=== PATIENT | male | born 1985 | race Caucasian/White ===

== ENCOUNTER 2017-05-27 20:02 | Inpatient (IN) | payer OTHER ==
[~2017-05-27] VITALS: Ht 180.3 cm; Wt 61.9 kg
[2017-05-27 20:13] VITALS: BP 120/66; PULSE 116; RESP 20; TEMP 98.2; O2SAT 98
[2017-05-27 20:42] VITALS: BP 119/69; PULSE 94; RESP 17; O2SAT 99
[2017-05-27] MEDS ORDERED: SODIUM CHLOR 0.9% 1000 ML INJ 1,000 ML IV SCH ×2 (20:45→22:30)
[2017-05-27 21:01] LABS: AUTOMATED NEUTROPHIL # 7.2 TH/MM3 (1.8-7.7); BASOPHIL % 0.4 % (0.0-2.0); EOSINOPHIL % 0.4 % (0.0-4.0); HEMATOCRIT 42.5 % (39.0-51.0); LYMPH % 9.5 % (9.0-44.0); LYMPHOCYTE # 0.9 TH/MM3 (1.0-4.8); MEAN CELL VOLUME 91.5 FL (80.0-100.0); MEAN CORPUSCULAR HEMOGLOBIN 30.6 PG (27.0-34.0); MEAN CORPUSCULAR HGB CONC 33.4 % (32.0-36.0); MONO % 11.2 % (0.0-8.0); NEUT % 78.5 % (16.0-70.0); PLATELET COUNT 331 TH/MM3 (150-450); RED BLOOD COUNT 4.64 MIL/MM3 (4.50-5.90); RED CELL DISTRIBUTION WIDTH 11.7 % (11.6-17.2); WHITE BLOOD COUNT 9.1 TH/MM3 (4.0-11.0)
[2017-05-27] MEDS ORDERED: LEVO500T8 PO (21:02)
[2017-05-27] MEDS ORDERED: MAPA500C PO (21:02)
[2017-05-27] MEDS ORDERED: METR500T10 PO (21:02)
[2017-05-27 21:11] LABS: POTASSIUM 3.1 MEQ/L (3.5-5.1)
[2017-05-27 21:17] LABS: HEMO FLAGS AUTO DIFF
[2017-05-27 21:46] LABS: BLOOD, URINE TRACE (NEG); GLUCOSE,URINE NEG (NEG); KETONE, URINE TRACE mg/dL (NEG); NITRITE,URINE NEG (NEG); PH, URINE 6.5 (5.0-8.5)
[2017-05-27 21:47] LABS: BICARBONATE 31.4 MEQ/L (21.0-32.0); TOTAL BILIRUBIN ADULT 0.8 MG/DL (0.2-1.0)
[2017-05-27 21:50] VITALS: BP 117/66; PULSE 100; RESP 18; TEMP 100.6; O2SAT 99
[2017-05-27 21:53] LABS: CALCIUM-PROTEIN CORRECTED 7.4 MG/DL (8.5-10.1)
[2017-05-27 21:58] LABS: MUCUS URINE MOD /lpf (OCC); URINE COLOR YELLOW (YELLW/STRAW)
[2017-05-27 21:59] LABS: COMMENT (UR) CULTURE INDICATED; CULTURE IF INDICATED CULTURE INDICATED; RBC, URINE 0-3 /hpf (0-3); SQUAMOUS EPITHELIAL CELL URINE 0-5 /hpf (0-5); WBC, URINE 15-19 /hpf (0-5)
[2017-05-27 22:05] VITALS: BP 118/68; PULSE 105; RESP 18; O2SAT 100
[2017-05-27 22:11] LABS: BANDS 26 % (0-6); EOSINOPHILS 1 % (0-4); METAMYELOCYTES 7 % (0-1); NEUTROPHIL # MANUAL DIFF 6.6 TH/MM3 (1.8-7.7); POLYS (SEG NEUTROPHILS) 39 % (16-70); WBC DIFF SAMPLE 100
[2017-05-27 22:12] LABS: PLATELET ESTIMATE SMEAR NORMAL (NORMAL); PLATELET MORPHOLOGY NORMAL (NORMAL); SCAN/DIFF FINAL DIFF MANUAL
[2017-05-27] MEDS ORDERED: CALCIUM GLUCONATE INJ 2 GM in DEXTROSE 5% IN WATER 100ML INJ 100 ML IV ONE ×2 (22:15)
[2017-05-27] MEDS ORDERED: DIATRIZOATE MEGLUM/DIATRIZOATE SOD 9 ML CUP ONE (22:17)
[2017-05-27] MEDS ORDERED: cefTRIAXone INJ 2,000 MG in SODIUM CHLORIDE 0.9% INJ 100 ML IV ONE (22:30)
--- NOTE | 2017-05-27 22:32 | PD ---
HPI Chief Complaint: Complaint Time Seen by Provider: 20:42 Travel History International Travel<30 days: No Contact w/Intl Traveler<30days: No Traveled to known affect area: No History of Present Illness HPI This is a 31-year-old man who presents to the emergency department complaining of difficulty urinating. He states that about 2 or 3 weeks ago he started to develop bloody diarrhea and abdominal pain. He then started to develop subjective fevers and chills. He was on his honeymoon in [place]. She went to an emergency department on May [address] where he [address] a CT scan that showed colitis, and had stool cultures performed which ultimately showed your Abeley neuro: A cup. They placed him on Cipro and Flagyl. Over the next couple days he developed a blurry vision and double vision, as well as urinary difficulties. He also developed some dark urine. He called the hospital back in a seated this may be a side effect of the Flagyl and they had him stop the Flagyl. He continued to feel ill, had a fever last night of 104.2, still has bloody diarrhea, and is having progressive urinary difficulties. He now feels like he has to urinate but is unable to urinate at all. Of note, he just recently started, cosentyx, an injectable DMARD for psoriasis. He completed his every week loading doses, and is now taking it every once every 4 weeks. History Past Medical History Narrative Medical Psoriasis, on Cosentyx. Tetanus Vaccination: Unknown Influenza Vaccination: No Past Surgical History Surgical History: No Previous Surgery Social History Alcohol Use: Yes (rarely) Tobacco Use: No Allergies-Medications (Allergen,Severity, Reaction): Coded Allergies: Sulfa (Verified Allergy, Unknown, 05/27/17) Reported Meds & Prescriptions Reported Meds & Active Scripts Active Reported Mapap (Acetaminophen) 500 Mg Cap 500 Mg PO Q4-6H PRN Levofloxacin 500 Mg Tablet 500 Mg PO DAILY Metronidazole 500 Mg Tab 500 Mg PO TID Review of Systems Except as stated in HPI: all other systems reviewed are Neg Physical Exam Narrative GENERAL: 31-year-old man, looks a little bit unwell, skinny. SKIN: Focused skin assessment warm/dry. NECK: Trachea midline. No JVD. CARDIOVASCULAR: Regular rate and rhythm. No murmur appreciated. RESPIRATORY: No accessory muscle use. Clear to auscultation. Breath sounds equal bilaterally. GASTROINTESTINAL: Abdomen is flat and soft. Minimal lower abdominal tenderness. MUSCULOSKELETAL: No obvious deformities. No edema. NEUROLOGICAL: Awake and alert. No obvious cranial nerve deficits. Motor grossly within normal limits. Normal speech. PSYCHIATRIC: Appropriate mood and affect; insight and judgment normal. Data Data Last Documented VS Vital Signs Date Time Temp Pulse Resp B/P Pulse Ox O2 Delivery O2 Flow Rate FiO2 05/27/17 21:50 100 18 117/66 99 Room Air 05/27/17 20:13 98.2 Orders Complete Blood Count With Diff (05/27/17 20:42) Comprehensive Metabolic Panel (05/27/17 20:42) Lactic Acid (05/27/17 20:42) Iv Access Insert/Monitor (05/27/17 20:42) Urinalysis - C+S If Indicated (05/27/17 20:42) Sodium Chlor 0.9% 1000 Ml Inj (Ns 1000 M (05/27/17 20:45) Ed Poc Ultrasound (05/27/17 ) Urinary Catheter Insert/Apply (05/27/17 21:18) Ct Abd/Pel W Iv Contrast(Rout) (05/27/17 ) Urine Culture (05/27/17 21:30) Electrocardiogram (05/27/17 ) Calcium Gluconate Inj (Calcium Gluconate (05/27/17 22:15) Oral Contrast - Adult (05/27/17 22:02) Diatrizoate Liq ( Gastroview Liq) (05/27/17 22:17) Blood Culture (05/27/17 22:23) Sodium Chlor 0.9% 1000 Ml Inj (Ns 1000 M (05/27/17 22:30) Ceftriaxone Inj (Rocephin Inj) (05/27/17 22:30) Enteric Path (Stool) (05/27/17 22:41) C Diff Toxin Pcr (05/27/17 22:41) Chest, Single Ap (05/27/17 ) Iohexol 350 Inj (Omnipaque 350 Inj) (05/27/17 23:31) Labs Laboratory Tests Test 05/27/17 05/27/17 20:54 21:30 White Blood Count 9.1 TH/MM3 Red Blood Count 4.64 MIL/MM3 Hemoglobin 14.2 GM/DL Hematocrit 42.5 % Mean Corpuscular Volume 91.5 FL Mean Corpuscular Hemoglobin 30.6 PG Mean Corpuscular Hemoglobin 33.4 % Concent Red Cell Distribution Width 11.7 % Platelet Count 331 TH/MM3 Mean Platelet Volume 7.9 FL Neutrophils (%) (Auto) 78.5 % Lymphocytes (%) (Auto) 9.5 % Monocytes (%) (Auto) 11.2 % Eosinophils (%) (Auto) 0.4 % Basophils (%) (Auto) 0.4 % Neutrophils # (Auto) 7.2 TH/MM3 Lymphocytes # (Auto) 0.9 TH/MM3 Monocytes # (Auto) 1.0 TH/MM3 Eosinophils # (Auto) 0.0 TH/MM3 Basophils # (Auto) 0.0 TH/MM3 CBC Comment AUTO DIFF Differential Total Cells 100 Counted Neutrophils % (Manual) 39 % Band Neutrophils % 26 % Lymphocytes % 18 % Monocytes % 9 % Eosinophils % 1 % Neutrophils # (Manual) 6.6 TH/MM3 Metamyelocytes 7 % Differential Comment FINAL DIFF MANUAL Atypical Lymphocytes % Platelet Estimate NORMAL Platelet Morphology Comment NORMAL Sodium Level 131 MEQ/L Potassium Level 3.1 MEQ/L Chloride Level 93 MEQ/L Carbon Dioxide Level 31.4 MEQ/L Anion Gap 7 MEQ/L Blood Urea Nitrogen 8 MG/DL Creatinine 0.90 MG/DL Estimat Glomerular Filtration 99 ML/MIN Rate Random Glucose 115 MG/DL Lactic Acid Level 1.5 mmol/L Calcium Level 7.3 MG/DL Protein Corrected Calcium 7.4 MG/DL Total Bilirubin 0.8 MG/DL Aspartate Amino Transf 11 U/L (AST/SGOT) Alanine Aminotransferase 12 U/L (ALT/SGPT) Alkaline Phosphatase 57 U/L Total Protein 7.0 GM/DL Albumin 2.4 GM/DL Urine Color YELLOW Urine Turbidity CLOUDY Urine pH 6.5 Urine Specific [place] 1.021 Urine Protein 30 mg/dL Urine Glucose (UA) NEG mg/dL Urine Ketones TRACE mg/dL Urine Occult Blood TRACE Urine Nitrite NEG Urine Bilirubin NEG Urine Leukocyte Esterase NEG Urine RBC 0-3 /hpf Urine WBC 15-19 /hpf Urine WBC Clumps FEW Urine Squamous Epithelial 0-5 /hpf Cells Urine Mucus MOD /lpf Microscopic Urinalysis Comment CULTURE INDICATED MDM Medical Decision Making Medical Screen Exam Complete: Yes Emergency Medical Condition: Yes Interpretation(s) CT abdomen and pelvis: Diffuse mild colonic wall thickening and diffuse mild colonic distention. Mild small bowel distention. LABS: CBC remarkable for white count 9.1 thousand, 26% bands. CMP with mildly low potassium, critically low calcium, glucose 1:15 UA with a little bit of pyuria My review chest x-ray: No acute cardiopulmonary disease. Differential Diagnosis Colitis, sepsis, abscess, other Narrative Course Medical decision making This is a 31-year-old man who presents to the emergency department with ongoing symptoms of a yersenia enterocolitica colitis, status post initial use of edema are, now with fever, abdominal pain, urinary difficulties, concerning for abscess or septicemia. He looks a little bit unwell. He is tachycardic. He states he had a fever of 104.2 despite 5 days of antibiotics now. We'll check cultures, labs, consider CT for abscess, IV fluids, reassess. FINAL: Patient was sepsis, elevated fever, tachycardia, all bandemia, we'll plan on admission to the hospital, blood cultures pending, IV ceftriaxone for likely yersenia septicemia. Diagnosis Primary Impression: Sepsis Additional Impression: Colitis Admitting Information Admitting Physician Requests: Admit Derick Garcia MD May 27, 2017 22:32
[2017-05-27] MEDS ORDERED: IOHEXOL 350 MG/ML 10 ML VIAL (for RAD DIAG) IV ONE (23:31)
--- NOTE | 2017-05-27 23:43 | RADRPT ---
EXAM DATE/TIME: 05/27/2017 22:55 [facility] COMPARISON: No previous studies available for comparison. INDICATIONS : Difficulty urinating, weakness, fever. Abdominal pain and bloating. IV CONTRAST: 97 cc Omnipaque 350 (iohexol) IV ORAL CONTRAST: Prescribed oral contrast ingested. RADIATION DOSE: 4.46 CTDIvol (mGy) MEDICAL HISTORY : None Skaggs catheter in place SURGICAL HISTORY : None. ENCOUNTER: Initial ACUITY: 1 week PAIN SCALE: 5/10 LOCATION: anterior abdomen TECHNIQUE: Volumetric scanning of the abdomen and pelvis was performed. Using automated exposure control and ad justment of the mA and/or kV according to patient size, radiation dose was kept as low as reasonably achievable to obtain optimal diagnostic quality images. DICOM format image data is available electro nically for review and comparison. FINDINGS: LOWER LUNGS: The visualized lower lungs are clear. LIVER: Homogeneous density without lesion. There is no dilation of the biliary tree. No calcified gallston es. SPLEEN: Normal size without lesion. PANCREAS: Within normal limits. KIDNEYS: Normal in size and shape. There is no mass, stone or hydronephrosis. ADRENAL GLANDS: Within normal limits. VASCULAR: There is no aortic aneurysm. BOWEL/MESENTERY: There is mild gaseous distention of the colon and mild fairly diffuse colonic wall thickening with fl uid levels present. There is mild gaseous distention of small bowel. ABDOMINAL WALL: Within normal limits. RETROPERITONEUM: There is no lymphadenopathy. BLADDER: Decompressed with Skaggs catheter present. REPRODUCTIVE: Within normal limits. INGUINAL: There is no lymphadenopathy or hernia. MUSCULOSKELETAL: Within normal limits for patient age. CONCLUSION: Diffuse mild colonic wall thickening and diffuse mild colonic distention. Mild small bowel distention . Luis Manuel Hoyos MD on May 27, 2017 at 23:36 Board Certified Radiologist. This report was verified electronically.
--- NOTE | 2017-05-27 23:44 | RADRPT ---
EXAM DATE/TIME: 05/27/2017 22:59 [facility] COMPARISON: No previous studies available for comparison. INDICATIONS : Fever. Weakness. MEDICAL HISTORY : None. SURGICAL HISTORY : None. ENCOUNTER: Initial ACUITY: 3 days PAIN SCORE: 5/10 LOCATION: Bilateral chest FINDINGS: A single view of the chest demonstrates the lungs to be symmetrically aerated without evidence of mas s, infiltrate or effusion. The cardiomediastinal contours are unremarkable. Osseous structures are intact. CONCLUSION: No acute disease. Luis Manuel Hoyos MD on May 27, 2017 at 23:42 Board Certified Radiologist. This report was verified electronically.
[2017-05-28] VITALS (12 sets, daily range): BP systolic 102–123; BP diastolic 62–69; PULSE 80–106; RESP 16–20; TEMP 96.3–103.1; O2SAT 10–100
[2017-05-28] MEDS ORDERED: MAGNESIUM HYDROXIDE SUSP 30 ML CUP PO PRN
[2017-05-28] MEDS ORDERED: LACTULOSE SYRUP 20 GM/30 ML CUP PO PRN
[2017-05-28] MEDS ORDERED: ACETAMINOPHEN/HYDROcodone 325 MG/5 MG TAB PO PRN
[2017-05-28] MEDS ORDERED: BISACODYL 10 MG SUPP RECTAL PRN
[2017-05-28] MEDS ORDERED: ONDANSETRON HCL 4 MG/2 ML VIAL IVP PRN
[2017-05-28] MEDS ORDERED: MORPHINE SULFATE 4 MG/ML INJ IV PRN
[2017-05-28] MEDS ORDERED: SENNOSIDES 8.6 MG TAB PO PRN
[2017-05-28] MEDS ORDERED: SODIUM CHLOR 0.9% 1000 ML INJ 1,000 ML IV SCH
[2017-05-28] MEDS ORDERED: SODIUM CHLORIDE 0.9% FLUSH 10 ML FLUSH IV FLUSH PRN
[2017-05-28] MEDS: metroNIDAZOLE 500 MG INJ 100 ML IV SCH ×4 (01:03→23:27)
[2017-05-28] MEDS: ACETAMINOPHEN 325 MG TAB PO PRN ×2 (01:20→23:43)
[2017-05-28 03:24] LABS: C. DIFF EPI 027 PRESUMPTIVE NEGATIVE (NEGATIVE); C. DIFF TOXIN PCR NEGATIVE (NEGATIVE)
[2017-05-28 06:59] LABS: AUTOMATED NEUTROPHIL # 6.9 TH/MM3 (1.8-7.7); BASOPHIL % 0.1 % (0.0-2.0); EOSINOPHIL % 0.2 % (0.0-4.0); HEMATOCRIT 36.4 % (39.0-51.0); LYMPHOCYTE # 0.8 TH/MM3 (1.0-4.8); MEAN CELL VOLUME 91.8 FL (80.0-100.0); MEAN CORPUSCULAR HEMOGLOBIN 31.2 PG (27.0-34.0); MONO % 14.1 % (0.0-8.0); NEUT % 76.6 % (16.0-70.0); PLATELET COUNT 271 TH/MM3 (150-450); RED BLOOD COUNT 3.97 MIL/MM3 (4.50-5.90); RED CELL DISTRIBUTION WIDTH 11.6 % (11.6-17.2)
[2017-05-28 07:07] LABS: HEMO FLAGS AUTO DIFF
[2017-05-28 07:10] LABS: POTASSIUM 3.4 MEQ/L (3.5-5.1)
[2017-05-28 07:23] LABS: BICARBONATE 28.7 MEQ/L (21.0-32.0); TOTAL BILIRUBIN ADULT 0.7 MG/DL (0.2-1.0)
[2017-05-28 07:49] LABS: BANDS 49 % (0-6); EOSINOPHILS 1 % (0-4); METAMYELOCYTES 2 % (0-1); NEUTROPHIL # MANUAL DIFF 7.2 TH/MM3 (1.8-7.7); POLYS (SEG NEUTROPHILS) 29 % (16-70); WBC DIFF SAMPLE 100
[2017-05-28 07:50] LABS: DOHLE BODIES PRESENT (NONE SEEN); PLATELET ESTIMATE SMEAR NORMAL (NORMAL); PLATELET MORPHOLOGY NORMAL (NORMAL); SCAN/DIFF FINAL DIFF MANUAL
[2017-05-28] MEDS: SODIUM CHLORIDE 0.9% FLUSH 10 ML FLUSH IV FLUSH SCH ×2 (07:57→21:00)
[2017-05-28] MEDS: cefTRIAXone INJ 1,000 MG in SODIUM CHLORIDE 0.9% INJ 100 ML IV SCH ×2 (08:11→21:37)
--- NOTE | 2017-05-28 08:42 | HHI.HP ---
[facility] Service [place] [facility] Primary Care Physician No Primary Care Physician Admission Diagnosis sepsis, enterocolitis Diagnoses: (1) Colitis Diagnosis: Principal Chief Complaint: bloody diarrhea Travel History International Travel<30 Days: No Contact w/Intl Traveler <30 Da: No Traveled to Known Affected Are: No Sepsis Criteria SIRS Criteria (2 or more): Temp > 100.9 or < 96.8, Heart rate over 90 Sepsis Criteria (SIRS+source): Infect source susp/known Criteria Outcome: Meets sepsis criteria History of Present Illness patient is a 31 y/o male with history of psoriasis who presented to ER with bloody diarrhea. he says that it started three weeks ago. he says that he went to the doctor and he was prescribed levaquin and flagyl. he says that after taking flagyl he stared to have urinary retention for which he stopped taking it. he says that his bowel movement is ' just some mucous and blood'. he reports on and off fever and night sweats at home. he's lost about three pounds within the past three weeks and reports loss of appetite. he says that he has mild abominal pain more or less localized to the LLQ. Review of Systems Constitutional: COMPLAINS OF: Fever, Weight loss, Night Sweats, DENIES: Chills Eyes: DENIES: Blurred vision, Diplopia, Vision loss, Double Vision Ears, nose, mouth, throat: DENIES: Tinnitus, Vertigo, Throat pain, Epistaxis Respiratory: DENIES: Apneas, Cough, Snoring, Wheezing, Hemoptysis, Sputum production, Shortness of breath Cardiovascular: DENIES: Chest pain, Palpitations, Syncope, Dyspnea on Exertion , PND, Lower Extremity Edema, Orthopnea, Claudication Gastrointestinal: COMPLAINS OF: Abdominal pain, Bloody stools, Anorexia, DENIES: Black stools, Constipation, Diarrhea, Nausea, Vomiting, Difficulty Swallowing Genitourinary: DENIES: Urinary frequency, Urgency, Hematuria, Dysuria Musculoskeletal: DENIES: Joint pain, Muscle aches, Stiffness, Joint Swelling Integumentary: DENIES: Rash Neurologic: DENIES: Abnormal gait, Headache, Localized weakness, Paresthesias, Seizures, Speech Problems, Tremor, Poor Balance Psychiatric: DENIES: Anxiety, Confusion, Mood changes, Depression, Hallucinations, Agitation, Suicidal Ideation, Homicidal Ideation, Delusions urinary retention. Past Family Social History Past Medical History psoriasis/ psoriatic arthritis Past Surgical History lipoma removal Reported Medications levaquin/ Flagyl Allergies: Coded Allergies: Sulfa (Verified Allergy, Unknown, 05/27/17) Active Ordered Medications Current Medications Sodium Chloride 1,000 ml @ 999 mls/hr Q1H1M IV Last administered on 05/27/17 21:55; Start 05/27/17 at 20:45; Stop 05/27/17 at 21:45; Status DC Calcium Gluconate/ Dextrose (Calcium Gluconate Inj/D5W 100 ml Inj) 120 ml @ 120 mls/hr ONCE ONCE IV Last administered on 05/27/17 23:51; Start 05/27/17 at 22:15; Stop 05/27/17 at 23:14; Status DC Diatrizoate Meglum/ Diatrizoate Sod 9 ml 9 ml STK-MED ONCE .ROUTE Last administered on 05/27/17 22:19; Start 05/27/17 at 22:17; Stop 05/27/17 at 22:18 ; Status DC Sodium Chloride 1,000 ml @ 999 mls/hr Q1H1M IV Last administered on 05/27/17 22:57; Start 05/27/17 at 22:30; Stop 05/27/17 at 23:30; Status DC Ceftriaxone Sodium/Sodium Chloride (Rocephin Inj/NS Inj) 100 ml @ 200 mls/hr ONCE ONCE IV Last administered on 05/27/17 22:53; Start 05/27/17 at 22:30; Stop 05/27/17 at 22:59; Status DC Iohexol 97 ml 97 ml STK-MED ONCE IV Last administered on 05/27/17 23:31; Start 05/27/17 at 23:31; Stop 05/27/17 at 23:32; Status DC Ceftriaxone Sodium 1000 mg/ Sodium Chloride 100 ml @ 200 mls/hr Q12H IV Last administered on 05/28/17 08:11; Start 05/28/17 at 09:00 Metronidazole 100 ml @ 100 mls/hr Q8H IV Last administered on 05/28/17 08:07 ; Start 05/28/17 at 00:00 Sodium Chloride (NS 1000 ml Inj) 1,000 ml @ 100 mls/hr Q10H IV Last administered on 05/28/17 01:03; Start 05/28/17 at 00:00; Stop 05/28/17 at 08:12 ; Status DC Sodium Chloride (NS Flush) 2 ml UNSCH PRN IV FLUSH FLUSH AFTER USING IV ACCESS ; Start 05/28/17 at 00:00 Sodium Chloride (NS Flush) 2 ml BID IV FLUSH ; Start 05/28/17 at 09:00 Ondansetron HCl (Zofran Inj) 4 mg Q6H PRN IVP NAUSEA OR VOMITING; Start at 00:00 Acetaminophen (Tylenol) 650 mg Q6H PRN PO FEVER/PAIN SCALE 1 TO 2 Last administered on 05/28/17 01:20; Start 05/28/17 at 00:00 Acetaminophen/ Hydrocodone Bitart (Becker 5-325 Mg) 1 tab Q4H PRN PO PAIN SCALE 3 TO 5; Start 05/28/17 at 00:00 Morphine Sulfate (Morphine Inj) 2 mg Q3H PRN IV Pain 6-10; Start 05/28/17 at 00 :00 Senna/Docusate Sodium (Vijaya-Colace) 1 tab BID PO ; Start 05/28/17 at 09:00; Status Future Hold Magnesium Hydroxide (Milk Of Magnesia Liq) 30 ml Q12H PRN PO MILD - MODERATE CONSTIPATION; Start 05/28/17 at 00:00 Sennosides (Senokot) 17.2 mg Q12H PRN PO MODERATE - SEVERE CONSTIPATION; Start 05/28/17 at 00:00 Bisacodyl (Dulcolax Supp) 10 mg DAILY PRN RECTAL SEVERE CONSITIPATION; Start at 00:00 Lactulose 30 ml 30 ml DAILY PRN PO SEVERE CONSITIPATION; Start 05/28/17 at 00: 00 Potassium Chloride/Sodium Chloride (NS + KCl 20 Meq Inj) 1,000 ml @ 100 mls/hr Q10H IV ; Start 05/28/17 at 08:30 Family History not relevant to this admission. Social History doesn't smoke.drinks rarely. Physical Exam Vital Signs Vital Signs Date Time Temp Pulse Resp B/P Pulse Ox O2 Delivery O2 Flow Rate FiO2 05/28/17 06:01 99.3 91 20 111/68 98 05/28/17 05:04 98.3 96 18 108/63 99 Room Air 05/28/17 02:25 99.5 05/28/17 01:14 103.1 105 16 123/69 99 Room Air 05/28/17 00:30 100.2 105 17 119/62 98 Room Air 05/28/17 00:06 106 17 119/69 100 Room Air 05/27/17 22:05 105 18 118/68 100 Room Air 05/27/17 21:50 100.6 100 18 117/66 99 Room Air 05/27/17 20:42 94 17 119/69 99 Room Air 05/27/17 20:13 98.2 116 20 120/66 98 Physical Exam GENERAL: This is a well-nourished, well-developed patient, in no apparent distress. SKIN: No rashes, ecchymoses or lesions. Cool and dry. HEAD: Atraumatic. Normocephalic. No temporal or scalp tenderness. EYES: Pupils equal round and reactive. Extraocular motions intact. No scleral icterus. No injection or drainage. ENT: Nose without bleeding, purulent drainage or septal hematoma. Throat without erythema, tonsillar hypertrophy or exudate. Uvula midline. Airway patent. NECK: Trachea midline. No JVD or lymphadenopathy. Supple, nontender, no meningeal signs. CARDIOVASCULAR: Regular rate and rhythm without murmurs, gallops, or rubs. RESPIRATORY: Clear to auscultation. Breath sounds equal bilaterally. No wheezes , rales, or rhonchi. GASTROINTESTINAL: Abdomen soft, minimal LLQ tenderness, nondistended. No hepato- splenomegaly, or palpable masses. No guarding. MUSCULOSKELETAL: Extremities without clubbing, cyanosis, or edema. No joint tenderness, effusion, or edema noted. No calf tenderness. Negative Homans sign bilaterally. NEUROLOGICAL: Awake and alert. Cranial nerves II through XII intact. Motor and sensory grossly within normal limits. Five out of 5 muscle strength in all muscle groups. Normal speech. Laboratory Laboratory Tests Test 05/27/17 05/27/17 05/27/17 05/28/17 20:54 21:30 23:40 06:45 White Blood Count 9.1 9.0 Red Blood Count 4.64 3.97 Hemoglobin 14.2 12.4 Hematocrit 42.5 36.4 Mean Corpuscular Volume 91.5 91.8 Mean Corpuscular Hemoglobin 30.6 31.2 Mean Corpuscular Hemoglobin 33.4 34.0 Concent Red Cell Distribution Width 11.7 11.6 Platelet Count 331 271 Mean Platelet Volume 7.9 7.8 Neutrophils (%) (Auto) 78.5 76.6 Lymphocytes (%) (Auto) 9.5 9.0 Monocytes (%) (Auto) 11.2 14.1 Eosinophils (%) (Auto) 0.4 0.2 Basophils (%) (Auto) 0.4 0.1 Neutrophils # (Auto) 7.2 6.9 Lymphocytes # (Auto) 0.9 0.8 Monocytes # (Auto) 1.0 1.3 Eosinophils # (Auto) 0.0 0.0 Basophils # (Auto) 0.0 0.0 CBC Comment AUTO DIFF AUTO DIFF Differential Total Cells 100 100 Counted Neutrophils % (Manual) 39 29 Band Neutrophils % 26 49 Lymphocytes % 18 8 Monocytes % 9 11 Eosinophils % 1 1 Neutrophils # (Manual) 6.6 7.2 Metamyelocytes 7 2 Differential Comment FINAL DIFF FINAL DIFF MANUAL MANUAL Atypical Lymphocytes Platelet Estimate NORMAL NORMAL Platelet Morphology Comment NORMAL NORMAL Sodium Level 131 136 Potassium Level 3.1 3.4 Chloride Level 93 98 Carbon Dioxide Level 31.4 28.7 Anion Gap 7 9 Blood Urea Nitrogen 8 6 Creatinine 0.90 0.79 Estimat Glomerular Filtration 99 115 Rate Random Glucose 115 106 Lactic Acid Level 1.5 Calcium Level 7.3 7.3 Protein Corrected Calcium 7.4 8.0 Total Bilirubin 0.8 0.7 Aspartate Amino Transf 11 9 (AST/SGOT) Alanine Aminotransferase 12 10 (ALT/SGPT) Alkaline Phosphatase 57 46 Total Protein 7.0 5.8 Albumin 2.4 1.8 Urine Color YELLOW Urine Turbidity CLOUDY Urine pH 6.5 Urine Specific [place] 1.021 Urine Protein 30 Urine Glucose (UA) NEG Urine Ketones TRACE Urine Occult Blood TRACE Urine Nitrite NEG Urine Bilirubin NEG Urine Leukocyte Esterase NEG Urine RBC 0-3 Urine WBC 15-19 Urine WBC Clumps FEW Urine Squamous Epithelial 0-5 Cells Urine Mucus MOD Microscopic Urinalysis Comment CULTURE INDICATED Stool C. difficile Toxin (PCR) NEGATIVE Stl C. difficile Toxin PRESUMPTIVE Epiderm 027 NEGATIVE Dohle Bodies PRESENT Red Cell Morphology Comment NORMAL Date/Time Procedure Status Source Growth 05/27/17 23:40 Received Stool Stool Pending 05/27/17 22:32 Aerobic Blood Culture Received Blood Peripheral Pending 05/27/17 22:32 Anaerobic Blood Culture Received Blood Peripheral Pending 05/27/17 21:30 Urine Culture Received Urine Clean Catch Pending Result Diagram: 05/28/17 0645 05/28/17 0645 Imaging Last Impressions Chest X-Ray 05/27/17 0000 Signed Impressions: Service Date/Time: Saturday, May 27, 2017 22:59 - CONCLUSION: No acute disease. Luis Manuel Hoyos MD Abdomen/Pelvis CT 05/27/17 0000 Signed Impressions: Service Date/Time: Saturday, May 27, 2017 22:55 - CONCLUSION: Diffuse mild colonic wall thickening and diffuse mild colonic distention. Mild small bowel distention. Luis Manuel Hoyos MD Assessment and Plan Assessment and Plan A/P - sepsis due to colitis continue Rocephin and Flagyl- stool work-up- consult GI -mild hypokalemia; will replace -hypocalcemia/ hyponatremia; improved -urinary retention- reno in place; voiding trial tomorrow -psoriasis- f/u as outpatient Discussed Condition With the patient and the RN. Physician Certification 2 Midnight Certification Type: Admission for Inpatient Services Order for Inpatient Services The services are ordered in accordance with Medicare regulations or non- Medicare payer requirements, as applicable. In the case of services not specified as inpatient-only, they are appropriately provided as inpatient services in accordance with the 2-midnight benchmark. Estimated LOS (days): 2 days is the estimated time the patient will need to remain in the hospital, assuming treatment plan goals are met and no additional complications. Post-Hospital Plan: Home Karoline Zavala MD May 28, 2017 08:42
[2017-05-28] MEDS ORDERED: DOCUSATE SODIUM 50 MG/SENNA 8.6 MG TAB PO SCH (09:00)
[2017-05-28] MEDS: NS + KCL 20 MEQ INJ 1,000 ML IV SCH ×2 (12:36→21:36)
--- NOTE | 2017-05-28 21:26 | MB ---
cc: BILL JASSO M.D. DATE OF CONSULTATION 05/28/[address] Zavala REASON FOR CONSULTATION Bloody diarrhea. HISTORY OF PRESENT ILLNESS Mr. Mays is a very pleasant 31-year-old gentleman who has psoriatic arthritis on treatment with biologics for 8 years, initially was Humira, recently, he was switched to Cosentyx -8 weeks ago. He started having loose stools back in November. He described like watery. At that time he went to see a stonemason and he was tested for what appears to be celiac disease. No other additional testing were done according to him. He had normal stools afterwards for a couple of months and then 3 months ago he started to have again mucous and loose stools. He described as watery and then again symptoms got better and 3 weeks ago started having mucous in stool again and bloody diarrhea. He went to the emergency room in [place] ,where he was traveling for the time-being, was given antibiotics, Flagyl and Levaquin and apparently a CT abdomen and pelvis and CT chest were done. According to him were normal. The patient stated that after Flagyl he had some difficulty urinating, dark urine and some vision problems and he was advised to stop the medication. He never had an endoscopy or a colonoscopy. He denies any recent travel other than to [place]. He denies any sick contacts. Denies any use of antibiotics other than what was recently given him in [place] which was Flagyl and Levaquin. He does have joint pains as he has a long history of psoriatic arthritis and he has skin lesion due to psoriasis which currently are getting better after the treatment. He denies any family history of colon cancer or any other GI pathology. PAST MEDICAL HISTORY He has psoriatic arthritis. PAST SURGICAL HISTORY Lipoma removal. ALLERGIES SULFA. MEDICATIONS In the hospital the patient was placed on: 1. Ceftriaxone. 2. Potassium chloride. 3. Metronidazole IV. 4. Zofran. 5. Tylenol. 6. [place]. 7. Milk of magnesium. 8. Bisacodyl. 9. Lactulose. REVIEW OF SYSTEMS On review of systems he denies any chills. He did have fever for the last 1 week. He does have some minimal weight loss. ENT: No alteration in his baseline hearing or visual acuity PULMONARY: He denies any shortness of breath. He does have cough from May 19 which is a dry cough. GASTROINTESTINAL: As above. GENITOURINARY: Denies dysuria, hematuria. HEMATOLOGICAL: No history of anemia or bleeding disorder. SKIN: No alteration in his baseline skin lesion. NEUROLOGIC: No history of TIA or CVA kind of symptoms. PHYSICAL EXAMINATION GENERAL: On clinical exam he is sitting comfortably in bed in no acute distress. He is coughing during the examination. He looks frail. VITAL SIGNS: Temperature is 100.5, pulse 98, respiration 18, blood pressure 109/63, saturation 100. HEENT: PERRLA. NECK: No JVD. No lymphadenopathy. CHEST: Clear to auscultation and palpation. CARDIOVASCULAR: S1-S2. No murmur. ABDOMEN: Abdomen is soft, nontender. Bowel sounds are present. MECHANICAL SERVICE REPRESENTATIVE: Awake, alert, oriented x3. No focal signs identified. EXTREMITIES: No pedal edema. SKIN: He has some rashes on his hands consistent with psoriasis. LABORATORY DATA His hemoglobin on admission was 14.2, currently 12.4. His platelets were normal. His white count is 9. His sed rate is 35. His CMP is normal except low albumin at 1.8. IMAGING STUDIES The patient had a CT abdomen and pelvis which was suggestive of mild diffuse colonic thickening and diffuse mild colonic distension. Mild small bowel distension. He has stool studies for bacterial pathogens were negative. He also had a C. Diff study which was negative. Blood cultures and urine cultures were negative. His urine showed white count 15-19 and some mucus in the urine. The chest x-ray was normal. IMPRESSION Mr. Mays is a very pleasant 31-year-old gentleman with change in bowel habits dating back to November, on and off, getting worse recently. Etiology would include inflammatory bowel disease versus infectious colitis, less likely irritable bowel syndrome, bloody diarrhea, most likely infectious colitis versus inflammatory bowel disease, less likely ischemic colitis or irritable bowel syndrome. RECOMMENDATIONS Stool for ova and parasites. Upper endoscopy and colonoscopy will be scheduled in the morning. Hepatitis B, PCR and TB ____ test. If the patient continues to cough consider CT chest. Obtain records from [place]. Further recommendation will depend on the patient's clinical status and the above results. Thank you again. We will continue to follow the patient along with you. MD IRINEO Barone/SAYDA /8:19 PM /9:00 PM [email or web address]
[2017-05-29] VITALS (7 sets, daily range): BP systolic 102–116; BP diastolic 63–74; PULSE 85–111; RESP 18–20; TEMP 98.1–102.2; O2SAT 97–100
[2017-05-29] MEDS: NS + KCL 20 MEQ INJ 1,000 ML IV SCH ×2 (05:22→14:24)
[2017-05-29 07:41] LABS: POTASSIUM 3.2 MEQ/L (3.5-5.1)
[2017-05-29 07:59] LABS: BICARBONATE 28.5 MEQ/L (21.0-32.0)
[2017-05-29 08:14] LABS: CALCIUM-PROTEIN CORRECTED 8.2 MG/DL (8.5-10.1)
--- NOTE | 2017-05-29 08:37 | HHI.PR ---
Subjective Remarks in no acute distress. still with bloody diarrhea. Tmax 102.2. has mild abdominal pain. Objective Vitals Vital Signs Date Time Temp Pulse Resp B/P Pulse Ox O2 Delivery O2 Flow Rate FiO2 05/29/17 00:00 102.2 99 20 114/63 98 05/28/17 22:00 98 05/28/17 20:00 101.7 99 20 108/67 100 05/28/17 16:00 100.5 98 18 109/63 100 05/28/17 12:00 98.3 101 19 102/64 100 I/O 05/28/17 05/28/17 05/28/17 05/29/17 05/29/17 05/29/17 07:00 15:00 23:00 07:00 15:00 23:00 Intake Total 1320 ml 1000 ml 1200 ml 1880 ml Output Total 675 ml 600 ml 1450 ml Balance 645 ml 1000 ml 600 ml 430 ml Intake Oral 240 ml 1000 ml 400 ml 480 ml IV Total 1080 ml 800 ml 1400 ml Output Urine Total 475 ml 600 ml 1150 ml Stool Total 200 ml 300 ml # Voids 0 # Bowel Movements 5 3 2 Result Diagram: 05/28/17 0645 05/29/17 0723 Imaging Last Impressions Chest X-Ray 05/27/17 0000 Signed Impressions: Service Date/Time: Saturday, May 27, 2017 22:59 - CONCLUSION: No acute disease. Luis Manuel Hoyos MD Abdomen/Pelvis CT 05/27/17 0000 Signed Impressions: Service Date/Time: Saturday, May 27, 2017 22:55 - CONCLUSION: Diffuse mild colonic wall thickening and diffuse mild colonic distention. Mild small bowel distention. Luis Manuel Hoyos MD Objective Remarks GENERAL: This is a well-nourished, well-developed patient, in no apparent distress. CARDIOVASCULAR: Regular rate and regular rhythm without murmurs, gallops, or rubs. RESPIRATORY: Clear to auscultation. Breath sounds equal bilaterally. No wheezes , rales, or rhonchi. GASTROINTESTINAL: Abdomen soft, non-tender, nondistended. Normal, active bowel sounds MUSCULOSKELETAL: Extremities without clubbing, cyanosis, or edema. NEURO: Alert & Oriented x4 to person, place, time, situation. Moves all ext x4 Procedures none Medications and IVs Current Medications Sodium Chloride 1,000 ml @ 999 mls/hr Q1H1M IV Last administered on 05/27/17 21:55; Start 05/27/17 at 20:45; Stop 05/27/17 at 21:45; Status DC Calcium Gluconate/ Dextrose (Calcium Gluconate Inj/D5W 100 ml Inj) 120 ml @ 120 mls/hr ONCE ONCE IV Last administered on 05/27/17 23:51; Start 05/27/17 at 22:15; Stop 05/27/17 at 23:14; Status DC Diatrizoate Meglum/ Diatrizoate Sod 9 ml 9 ml STK-MED ONCE .ROUTE Last administered on 05/27/17 22:19; Start 05/27/17 at 22:17; Stop 05/27/17 at 22:18 ; Status DC Sodium Chloride 1,000 ml @ 999 mls/hr Q1H1M IV Last administered on 05/27/17 22:57; Start 05/27/17 at 22:30; Stop 05/27/17 at 23:30; Status DC Ceftriaxone Sodium/Sodium Chloride (Rocephin Inj/NS Inj) 100 ml @ 200 mls/hr ONCE ONCE IV Last administered on 05/27/17 22:53; Start 05/27/17 at 22:30; Stop 05/27/17 at 22:59; Status DC Iohexol 97 ml 97 ml STK-MED ONCE IV Last administered on 05/27/17 23:31; Start 05/27/17 at 23:31; Stop 05/27/17 at 23:32; Status DC Ceftriaxone Sodium 1000 mg/ Sodium Chloride 100 ml @ 200 mls/hr Q12H IV Last administered on 05/28/17 21:37; Start 05/28/17 at 09:00 Metronidazole 100 ml @ 100 mls/hr Q8H IV Last administered on 05/28/17 23:27 ; Start 05/28/17 at 00:00 Sodium Chloride (NS 1000 ml Inj) 1,000 ml @ 100 mls/hr Q10H IV Last administered on 05/28/17 01:03; Start 05/28/17 at 00:00; Stop 05/28/17 at 08:12 ; Status DC Sodium Chloride (NS Flush) 2 ml UNSCH PRN IV FLUSH FLUSH AFTER USING IV ACCESS ; Start 05/28/17 at 00:00 Sodium Chloride (NS Flush) 2 ml BID IV FLUSH ; Start 05/28/17 at 09:00 Ondansetron HCl (Zofran Inj) 4 mg Q6H PRN IVP NAUSEA OR VOMITING; Start at 00:00 Acetaminophen (Tylenol) 650 mg Q6H PRN PO FEVER/PAIN SCALE 1 TO 2 Last administered on 05/28/17t 23:43; Start 05/28/17 at 00:00 Acetaminophen/ Hydrocodone Bitart ([place] 5-325 Mg) 1 tab Q4H PRN PO PAIN SCALE 3 TO 5; Start 05/28/17 at 00:00 Morphine Sulfate (Morphine Inj) 2 mg Q3H PRN IV Pain 6-10; Start 05/28/17 at 00 :00 Senna/Docusate Sodium (Vijaya-Colace) 1 tab BID PO ; Start 05/28/17 at 09:00; Status Hold Magnesium Hydroxide (Milk Of Magnesia Liq) 30 ml Q12H PRN PO MILD - MODERATE CONSTIPATION; Start 05/28/17 at 00:00 Sennosides (Senokot) 17.2 mg Q12H PRN PO MODERATE - SEVERE CONSTIPATION; Start 05/28/17 at 00:00 Bisacodyl (Dulcolax Supp) 10 mg DAILY PRN RECTAL SEVERE CONSITIPATION; Start at 00:00 Lactulose 30 ml 30 ml DAILY PRN PO SEVERE CONSITIPATION; Start 05/28/17 at 00: 00 Potassium Chloride/Sodium Chloride (NS + KCl 20 Meq Inj) 1,000 ml @ 100 mls/hr Q10H IV Last administered on 05/29/17t 05:22; Start 05/28/17 at 08:30 Magnesium Citrate (Citroma Liq) 300 ml ONCE ONCE PO ; Start 05/29/17 at 15:00; Stop 05/29/17 at 15:01 Magnesium Citrate (Citroma Liq) 300 ml ONCE ONCE PO ; Start 05/29/17 at 17:00; Stop 05/29/17 at 17:01 A/P Assessment and Plan A/P - sepsis due to colitis continue Rocephin and Flagyl- follow the stool work-up and serology- GI consult appreciated and plan for endoscopy tomorrow. -mild hypokalemia; will replace -hypocalcemia/ hyponatremia; improved -urinary retention- keep the reno in today; voiding trial tomorrow -psoriasis- f/u as outpatient Karoline Zavala MD May 29, 2017 08:37
[2017-05-29] MEDS: SODIUM CHLORIDE 0.9% FLUSH 10 ML FLUSH IV FLUSH SCH ×2 (09:00→22:44)
[2017-05-29] MEDS ORDERED: POTASSIUM CHLORIDE 10 MEQ CONTROLLED RELEASE TAB PO ONE (09:00)
[2017-05-29] MEDS: metroNIDAZOLE 500 MG INJ 100 ML IV SCH ×3 (09:56→23:50)
[2017-05-29] MEDS: cefTRIAXone INJ 1,000 MG in SODIUM CHLORIDE 0.9% INJ 100 ML IV SCH ×2 (09:57→22:44)
[2017-05-29] MEDS: ACETAMINOPHEN 325 MG TAB PO PRN ×2 (12:27→18:35)
[2017-05-29] MEDS ORDERED: MAGNESIUM CITRATE SOLN 300 ML BTL PO ONE ×2 (15:00→17:00)
--- NOTE | 2017-05-29 18:16 | EKG ---
Date Performed: 05/27/2017 Time Performed: 22:09:56 PTAGE: 31 years EKG: SINUS TACHYCARDIA POSSIBLE LEFT ATRIAL ENLARGEMENT INCOMPLETE RIGHT BUNDLE BRANCH BLOCK ABN ORMAL RHYTHM ECG NO PREVIOUS TRACING DOCTOR: Yonathan Goodwin Interpretating Date/Time 05/29/2017 18:12:39
[2017-05-29] MEDS ORDERED: IOHEXOL 350 MG/ML 10 ML VIAL (for RAD DIAG) IV ONE (21:15)
--- NOTE | 2017-05-29 21:33 | RADRPT ---
EXAM DATE/TIME: 05/29/2017 21:03 [facility] COMPARISON: CHEST SINGLE AP, May 27, 2017, 22:59. INDICATIONS : Cough. Fever. IV CONTRAST: 75 cc Omnipaque 350 (iohexol) IV RADIATION DOSE: 6.58 CTDIvol (mGy) MEDICAL HISTORY : None SURGICAL HISTORY : None. ENCOUNTER: Initial ACUITY: 3 days PAIN SCALE: 1/10 LOCATION: Bilateral chest TECHNIQUE: Volumetric scanning of the chest was performed. Using automated exposure control and adjustment of t he mA and/or kV according to patient size, radiation dose was kept as low as reasonably achievable to obtain optimal diagnostic quality images. DICOM format image data is available electronically for review and comparison. Follow-up recommendations for incidentally detected pulmonary nodules are based at a minimum on nodul e size and patient risk factors according to Fleischner Society Guidelines. FINDINGS: LUNGS: There is no consolidation or pneumothorax. No concerning pulmonary nodule is visualized. PLEURA: There is no pleural thickening or pleural effusion. MEDIASTINUM: The heart and great vessels demonstrate no acute abnormality. There is no mediastinal or hilar lymph adenopathy. AXILLAE: Within normal limits. No lymphadenopathy. SKELETAL: Within normal limits for patient age. MISCELLANEOUS: The visualized upper abdominal organs demonstrate no acute abnormality. CONCLUSION: Unremarkable CT chest. No pneumonia. Jay Soto MD on May 29, 2017 at 21:31 Board Certified Radiologist. This report was verified electronically.
[2017-05-30 00:30] VITALS: BP 116/77; PULSE 72; RESP 20; TEMP 97; O2SAT 100
[2017-05-30] MEDS: NS + KCL 20 MEQ INJ 1,000 ML IV SCH ×3 (00:59→20:03)
[2017-05-30] MEDS ORDERED: LACTATED RINGER'S 1000 ML IV PRN (03:30)
[2017-05-30 05:51] VITALS: BP 100/65; PULSE 92; RESP 20; TEMP 97.3; O2SAT 97
[2017-05-30] MEDS ORDERED: PROPOFOL 200 MG/20 ML AMP IV ONE (07:14)
--- NOTE | 2017-05-30 07:37 | HHI.GIFU ---
Subjective Remarks patient still have bloody diarrhea, with general abdominal discomfort Objective Vitals I&O Vital Signs Date Time Temp Pulse Resp B/P Pulse Ox O2 Delivery O2 Flow Rate FiO2 05/30/17 05:51 97.3 92 20 100/65 97 05/30/17 00:30 97.0 72 20 116/77 100 05/29/17 22:00 85 05/29/17 20:15 99.5 102 18 102/70 97 05/29/17 17:49 101.0 107 19 107/68 99 05/29/17 12:00 101.2 111 19 109/66 99 05/29/17 10:18 101.8 05/29/17 08:00 98.1 100 18 116/74 100 I/O 05/29/17 05/29/17 05/29/17 05/30/17 05/30/17 05/30/17 07:00 15:00 23:00 07:00 15:00 23:00 Intake Total 1880 ml 1000 ml 2200 ml 0 ml Output Total 1450 ml 500 ml 350 ml 400 ml Balance 430 ml 500 ml 1850 ml -400 ml Intake Oral 480 ml 1000 ml 700 ml 0 ml IV Total 1400 ml 1500 ml Output Urine Total 1150 ml 500 ml 350 ml 400 ml Stool Total 300 ml # Voids 4 # Bowel Movements 2 2 3 0 Laboratory Date/Time Procedure Status Source Growth 05/29/17 05:00 Cryptosporidium Exam Received Stool Stool Pending 05/29/17 05:00 Giardia Antigen (GEOFF) Received Stool Stool Pending 05/27/17 23:40 - Final Complete Stool Stool NO ENTERIC PATHOGENS DETECTED BY PCR... 05/27/17 22:32 Aerobic Blood Culture - Preliminary Resulted Blood Peripheral NO GROWTH IN 2 DAYS 05/27/17 22:32 Anaerobic Blood Culture - Preliminary Resulted Blood Peripheral NO GROWTH IN 2 DAYS 05/27/17 21:30 Urine Culture - Final Complete Urine Clean Catch NO GROWTH IN 48 HOURS. Physical Exam HEENT: Pupils round and reactive to light; normocephalic; atraumatic; no jaundice. Throat is clear. NECK: Neck is supple, no JVD, no lymphadenopathy. CHEST: Chest is clear to auscultation and percussion. CARDIAC: Regular rate and rhythm with no murmur gallop or rubs. ABDOMEN: Soft, nondistended, mild diffuse abdominal tenderness; no hepatosplenomegaly; bowel sounds are present in all four quadrants. EXTREMITIES: No clubbing, cyanosis, or edema. SKIN: Normal; no rash; no jaundice. TRANSFER MACHINE OPERATOR: No focal deficits; alert and oriented times three. Assessment and Plan Plan EGD showed class C esophagitis, mild gastritis, colon showed sever colitis throughout the colon c/w ulcerative colitis, Bx were done recommendation 1- f/u Bx 2- start PPI 3-start prednisone 60 mg daily 4-start Asacol high dose 5- clear liquid Avery Romo MD May 30, 2017 07:37
--- NOTE | 2017-05-30 07:42 | GIPROC ---
[facility] [address] [place] [address], [id number] COLONOSCOPY PROCEDURE REPORT EXAM DATE: 05/30/2017 PATIENT NAME: Jay Masy MR #: [id number] BIRTHDATE: 1985 ENDOSCOPIST: Avery Romo MD ORDER #: [id number] FORESTRY FIRE AID: Yobany Paula and Abhijit Hernandez STATUS: inpatient INDICATIONS: The patient is a 31 yr old male here for a colonoscopy due to hematochezia, chronic diarrhea, and abdominal pain PROCEDURE PERFORMED: Colonoscopy with biopsy MEDICATIONS: None and Per Anesthesia. PREP QUALITY: good ESTIMATED BLOOD LOSS: None CONSENT: The patient understands the risks and benefits of the procedure and understands that these risks include, but are not limited to: sedation, allergic reaction, infection, perforation and/or bleeding. Alternative means of evaluation and treatment include, among others: physical exam, x-rays, and/or surgical intervention. The patient elects to proceed with this endoscopic procedure. medical equipment was checked for proper function. Hand hygiene and appropriate measures for infection prevention was taken. After the risks, benefits and alternatives of the procedure were thoroughly explained, Informed consent was verified, confirmed and timeout was successfully executed by the treatment team. A digital exam revealed no abnormalities of the rectum The Pentax EC-[id number] endoscope was introduced through the anus and advanced to the cecum, which was identified by both the appendix and ileocecal valve. The instrument was then slowly withdrawn as the colon was fully examined. COLON FINDINGS: Sever ulcerative colitis with deep ulcers throughout the colon Bx throughtout the colon done. The scope was then completely withdrawn from the patient and the procedure terminated. ADVERSE EVENTS: There were no complications. IMPRESSIONS: 1. Sever ulcerative colitis with deep ulcers throughout the colon Bx throughtout the colon done 2. Revealed no abnormalities of the rectum RECOMMENDATIONS: 1. Start prednison 60 mg daily start Asacol 4800 mg daily f/u Bx clear liquid 2. FU in clinic in 2 wks RECALL: Return 3 months Colonoscopy Avery Romo MD eSigned: Avery Romo MD 05/30/2017 7:42 AM cc: PATIENT NAME: Jay Mays MR#: [id number]
--- NOTE | 2017-05-30 07:46 | GIPROC ---
[address], [address] EGD PROCEDURE REPORT EXAM DATE: 05/30/2017 PATIENT NAME: Jay Mays MR #: [id number] BIRTHDATE: 1985 ATTENDING: Avery Romo MD ORDER #: [id number] FOLDER AND NOTCHER: Yobany Paula and Abhijit Hernandez STATUS: inpatient INDICATIONS: The patient is a 31 yr old male here for an EGD due to abdominal pain and chronic diarrhea PROCEDURE PERFORMED: EGD w/ biopsy MEDICATIONS: None and Per Anesthesia. TOPICAL ANESTHETIC: none CONSENT: The patient understands the risks and benefits of the procedure and understands that these risks include, but are not limited to: sedation, allergic reaction, infection, perforation and/or bleeding. Alternative means of evaluation and treatment include, among others: physical exam, x-rays, and/or surgical intervention. The patient elects to proceed with this endoscopic procedure. medical equipment was checked for proper function. Hand hygiene and appropriate measures for infection prevention was taken. After the risks, benefits and alternatives of the procedure were thoroughly explained, Informed consent was verified, confirmed and timeout was successfully executed by the treatment team. The patient was anesthetized with topical anesthesia and the EC-[id number] (Pedi C) endoscope was introduced through the mouth and advanced to the second portion of the duodenum. Retroflexed views revealed no abnormalities The gastroscope was then slowly withdrawn and removed. Esophagitis grade C Bx done at EG junction. Mild gastritis Bx from antrum. The endoscopy was otherwise normal. ADVERSE EVENTS: There were no complications. IMPRESSIONS: 1. Esophagitis grade C Bx done at EG junction 2. Mild gastritis Bx from antrum 3. Normal endoscopy otherwise 4. Retroflexed views revealed no abnormalities RECOMMENDATIONS: 1. Await biopsy results. Biopsy results will not be ready for 7-10 days. If you don't hear from us in two weeks, call our office for biopsy results. 2. Anti-reflux regimen 3. Avoid NSAIDS 4. Protonix 40mg Q AM PATIENT CONDITION: stable DISPOSITION: Home REPEAT EXAM: Return as needed for EGD Avery Romo MD eSigned: Avery Romo MD 05/30/2017 7:46 AM cc: PATIENT NAME: Jay Mays MR#: [id number]
[2017-05-30] MEDS: cefTRIAXone INJ 1,000 MG in SODIUM CHLORIDE 0.9% INJ 100 ML IV SCH ×2 (08:44→20:03)
[2017-05-30] MEDS: metroNIDAZOLE 500 MG INJ 100 ML IV SCH ×3 (08:45→23:02)
[2017-05-30] MEDS: SODIUM CHLORIDE 0.9% FLUSH 10 ML FLUSH IV FLUSH SCH ×2 (08:45→20:04)
[2017-05-30] MEDS: PANTOPRAZOLE SOD 40 MG DELAYED RELEASE TAB PO SCH (08:46)
[2017-05-30] MEDS: predniSONE 20 MG TAB PO SCH ×3 (08:46→18:00)
--- NOTE | 2017-05-30 09:00 | HHI.PR ---
Subjective Remarks had EGD/ colonoscopy earlier. T max 101.8. no abdominal pain. still with some rectal bleed but he says that the amount of blood is less. Objective Vitals Vital Signs Date Time Temp Pulse Resp B/P Pulse Ox O2 Delivery O2 Flow Rate FiO2 05/30/17 07:40 Nasal Cannula 2 05/30/17 07:40 98.3 87 14 103/66 100 05/30/17 05:51 97.3 92 20 100/65 97 05/30/17 00:30 97.0 72 20 116/77 100 05/29/17 22:00 85 05/29/17 20:15 99.5 102 18 102/70 97 05/29/17 17:49 101.0 107 19 107/68 99 05/29/17 12:00 101.2 111 19 109/66 99 05/29/17 10:18 101.8 I/O 05/29/17 05/29/17 05/29/17 05/30/17 05/30/17 05/30/17 07:00 15:00 23:00 07:00 15:00 23:00 Intake Total 1880 ml 1000 ml 2200 ml 500 ml Output Total 1450 ml 500 ml 350 ml 400 ml Balance 430 ml 500 ml 1850 ml 100 ml Intake Oral 480 ml 1000 ml 700 ml 0 ml IV Total 1400 ml 1500 ml Other 500 ml Output Urine Total 1150 ml 500 ml 350 ml 400 ml Stool Total 300 ml # Voids 4 0 # Bowel Movements 2 2 3 0 Result Diagram: 05/28/17 0645 05/29/17 0723 Imaging Last Impressions Chest CT 05/29/17 0000 Signed Impressions: Service Date/Time: Monday, May 29, 2017 21:03 - CONCLUSION: Unremarkable CT chest. No pneumonia. Jay Soto MD Chest X-Ray 05/27/17 0000 Signed Impressions: Service Date/Time: Saturday, May 27, 2017 22:59 - CONCLUSION: No acute disease. Luis Manuel Hoyos MD Abdomen/Pelvis CT 05/27/17 0000 Signed Impressions: Service Date/Time: Saturday, May 27, 2017 22:55 - CONCLUSION: Diffuse mild colonic wall thickening and diffuse mild colonic distention. Mild small bowel distention. Luis Manuel Hoyos MD Objective Remarks GENERAL: This is a well-nourished, well-developed patient, in no apparent distress. CARDIOVASCULAR: Regular rate and regular rhythm without murmurs, gallops, or rubs. RESPIRATORY: Clear to auscultation. Breath sounds equal bilaterally. No wheezes , rales, or rhonchi. GASTROINTESTINAL: Abdomen soft, non-tender, nondistended. Normal, active bowel sounds MUSCULOSKELETAL: Extremities without clubbing, cyanosis, or edema. NEURO: Alert & Oriented x4 to person, place, time, situation. Moves all ext x4 Procedures none Medications and IVs Current Medications Sodium Chloride 1,000 ml @ 999 mls/hr Q1H1M IV Last administered on 05/27/17 21:55; Start 05/27/17 at 20:45; Stop 05/27/17 at 21:45; Status DC Calcium Gluconate/ Dextrose (Calcium Gluconate Inj/D5W 100 ml Inj) 120 ml @ 120 mls/hr ONCE ONCE IV Last administered on 05/27/17 23:51; Start 05/27/17 at 22:15; Stop 05/27/17 at 23:14; Status DC Diatrizoate Meglum/ Diatrizoate Sod 9 ml 9 ml STK-MED ONCE .ROUTE Last administered on 05/27/17 22:19; Start 05/27/17 at 22:17; Stop 05/27/17 at 22:18 ; Status DC Sodium Chloride 1,000 ml @ 999 mls/hr Q1H1M IV Last administered on 05/27/17 22:57; Start 05/27/17 at 22:30; Stop 05/27/17 at 23:30; Status DC Ceftriaxone Sodium/Sodium Chloride (Rocephin Inj/NS Inj) 100 ml @ 200 mls/hr ONCE ONCE IV Last administered on 05/27/17 22:53; Start 05/27/17 at 22:30; Stop 05/27/17 at 22:59; Status DC Iohexol 97 ml 97 ml STK-MED ONCE IV Last administered on 05/27/17 23:31; Start 05/27/17 at 23:31; Stop 05/27/17 at 23:32; Status DC Ceftriaxone Sodium 1000 mg/ Sodium Chloride 100 ml @ 200 mls/hr Q12H IV Last administered on 05/30/17 08:44; Start 05/28/17 at 09:00 Metronidazole 100 ml @ 100 mls/hr Q8H IV Last administered on 05/30/17 08:45 ; Start 05/28/17 at 00:00 Sodium Chloride (NS 1000 ml Inj) 1,000 ml @ 100 mls/hr Q10H IV Last administered on 05/28/17 01:03; Start 05/28/17 at 00:00; Stop 05/28/17 at 08:12 ; Status DC Sodium Chloride (NS Flush) 2 ml UNSCH PRN IV FLUSH FLUSH AFTER USING IV ACCESS ; Start 05/28/17 at 00:00 Sodium Chloride (NS Flush) 2 ml BID IV FLUSH Last administered on 05/29/17 22: 44; Start 05/28/17 at 09:00 Ondansetron HCl (Zofran Inj) 4 mg Q6H PRN IVP NAUSEA OR VOMITING; Start at 00:00 Acetaminophen (Tylenol) 650 mg Q6H PRN PO FEVER/PAIN SCALE 1 TO 2 Last administered on 05/29/17 18:35; Start 05/28/17 at 00:00 Acetaminophen/ Hydrocodone Bitart ([place] 5-325 Mg) 1 tab Q4H PRN PO PAIN SCALE 3 TO 5; Start 05/28/17 at 00:00 Morphine Sulfate (Morphine Inj) 2 mg Q3H PRN IV Pain 6-10; Start 05/28/17 at 00 :00 Senna/Docusate Sodium (Vijaya-Colace) 1 tab BID PO ; Start 05/28/17 at 09:00; Status Hold Magnesium Hydroxide (Milk Of Magnesia Liq) 30 ml Q12H PRN PO MILD - MODERATE CONSTIPATION; Start 05/28/17 at 00:00 Sennosides (Senokot) 17.2 mg Q12H PRN PO MODERATE - SEVERE CONSTIPATION; Start 05/28/17 at 00:00 Bisacodyl (Dulcolax Supp) 10 mg DAILY PRN RECTAL SEVERE CONSITIPATION; Start at 00:00 Lactulose 30 ml 30 ml DAILY PRN PO SEVERE CONSITIPATION; Start 05/28/17 at 00: 00 Potassium Chloride/Sodium Chloride (NS + KCl 20 Meq Inj) 1,000 ml @ 100 mls/hr Q10H IV Last administered on 05/30/17 00:59; Start 05/28/17 at 08:30 Magnesium Citrate (Citroma Liq) 300 ml ONCE ONCE PO Last administered on 14:23; Start 05/29/17 at 15:00; Stop 05/29/17 at 15:01; Status DC Magnesium Citrate (Citroma Liq) 300 ml ONCE ONCE PO Last administered on 17:00; Start 05/29/17 at 17:00; Stop 05/29/17 at 17:01; Status DC Potassium Chloride (KCl) 40 meq ONCE ONCE PO Last administered on 05/29/17 09 :58; Start 05/29/17 at 09:00; Stop 05/29/17 at 09:01; Status DC Iohexol 75 ml 75 ml STK-MED ONCE IV Last administered on 05/29/17 21:15; Start 05/29/17 at 21:15; Stop 05/29/17 at 21:16; Status DC Lactated Ringer's (Lr 1000 ml Inj) 1,000 ml @ 30 mls/hr Q24H PRN IV SEE LABEL COMMENTS; Start 05/30/17 at 03:30; Stop 06/02/17 at 03:29 Mesalamine (Asacol Hd Dr) 1,600 mg Q8HR PO ; Start 05/30/17 at 10:00 Prednisone (Deltasone) 20 mg TID PO Last administered on 05/30/17 08:46; Start 05/30/17 at 09:00 Propofol (Diprivan 200 Mg/20 ml Inj) 330 mg STK-MED ONCE IV ; Start 05/30/17 at 07:14; Stop 05/30/17 at 07:36; Status DC Pantoprazole Sodium (Protonix) 40 mg DAILY PO Last administered on 05/30/17 08 :46; Start 05/30/17 at 09:00 A/P Assessment and Plan A/P - sepsis due to colitis continue Rocephin and Flagyl- follow the stool work-up and serology- s/p EGD/ colonoscopy with esophagitis,gastritis and diffuse colitis- suspect ulcerative colitis- follow the biospy started on prednisone and Asacol. -mild hypokalemia; will replace. -hypocalcemia/ hyponatremia; improved -urinary retention- voiding trial soon. -psoriasis- f/u as outpatient Karoline Zavala MD May 30, 2017 09:00
--- NOTE | 2017-05-30 09:44 | PD.CONS ---
History of Present Illness Service Infectious disease Consult Requested By Dr Zavala Reason for Consult Fever Primary Care Physician No Primary Care Physician Diagnoses: (1) Sepsis (2) Colitis History of Present Illness 31 year old male with Psoriatic arthritis who was on Humira for 8 years and then changed to Cosentryx about 8 weeks ago for insurance reasons - started having bloody diarrhea- about 3 weeks ago- went to [place] for his honeymoon after he got sick and was there for 10 days - had to go to ER there - where he did have a fever of 102 and was given Levaquin and Flagyl. Had to stop the Levaquin because of side effects. Came back and was admitted. Colonoscopy done today showed severe Ulcerative colitis. Had two skin biopsies few weeks ago which are healed. Exposed to some nephewds and nieces who had viral infections. In [place] was exposed to some red bugs but no bites.No recnet dental work. Review of Systems Constitutional: COMPLAINS OF: Fever, Weight loss Endocrine: DENIES: Polydipsia Eyes: DENIES: Blurred vision, Eye inflammation Ears, nose, mouth, throat: DENIES: Hearing loss, Nasal discharge, Oral lesions , Hoarseness Respiratory: COMPLAINS OF: Cough (dry cough), DENIES: Sputum production, Shortness of breath Cardiovascular: DENIES: Chest pain, Dyspnea on Exertion, Lower Extremity Edema Gastrointestinal: COMPLAINS OF: Bloody stools, Diarrhea, Anorexia, DENIES: Difficulty Swallowing Genitourinary: DENIES: Urinary frequency, Dysuria Musculoskeletal: COMPLAINS OF: Joint pain, Muscle aches, DENIES: Neck pain Integumentary: DENIES: Abnormal pigmentation, Pruritus Hematologic/lymphatic: DENIES: Bruising, Lymphadenopathy Neurologic: COMPLAINS OF: Headache, DENIES: Localized weakness, Seizures Psychiatric: DENIES: Anxiety, Confusion, Depression, Hallucinations Past Family Social History Allergies: Coded Allergies: Sulfa (Verified Allergy, Unknown, 05/27/17) Past Medical History Past Medical History psoriasis/ psoriatic arthritis Past Surgical History lipoma removal Reported Medications Ceftriaxone and Flagyl Allergies: Coded Allergies: Sulfa (Verified Allergy, Unknown, 05/27/17) Family History Non contributory Social History Recently . Lived in [place] all his life. 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 SKIN: No rashes, ecchymoses Cool and dry. Areas of skin biopsy well healed HEAD: Atraumatic. Normocephalic. No temporal or scalp tenderness. EYES: Pupils equal round and reactive. Extraocular motions intact. No scleral icterus. No injection or drainage. ENT: Nose without bleeding, purulent drainage or septal hematoma. Throat without erythema, tonsillar hypertrophy or exudate. Uvula midline. Airway patent. Some glossitis NECK: Trachea midline. No JVD or lymphadenopathy. Supple, nontender, no meningeal signs. CARDIOVASCULAR: Regular rate and rhythm without murmurs, gallops, or rubs. RESPIRATORY: Clear to auscultation. Breath sounds equal bilaterally. No wheezes , rales, or rhonchi. GASTROINTESTINAL: Abdomen soft, non-tender, nondistended. No hepato-splenomegaly , or palpable masses. No guarding. MUSCULOSKELETAL: Extremities without clubbing, cyanosis, or edema. No joint tenderness, effusion, or edema noted. No calf tenderness. Negative Homans sign bilaterally. NEUROLOGICAL: Awake and alert. Cranial nerves II through XII intact. Motor and sensory grossly within normal limits. Five out of 5 muscle strength in all muscle groups. Normal speech. Laboratory Date/Time Procedure Status Source Growth 05/29/17 05:00 Cryptosporidium Exam Received Stool Stool Pending 05/29/17 05:00 Giardia Antigen (GEOFF) Received Stool Stool Pending 05/27/17 23:40 - Final Complete Stool Stool NO ENTERIC PATHOGENS DETECTED BY PCR... 05/27/17 22:32 Aerobic Blood Culture - Preliminary Resulted Blood Peripheral NO GROWTH IN 2 DAYS 05/27/17 22:32 Anaerobic Blood Culture - Preliminary Resulted Blood Peripheral NO GROWTH IN 2 DAYS 05/27/17 21:30 Urine Culture - Final Complete Urine Clean Catch NO GROWTH IN 48 HOURS. Result Diagram: 05/28/17 0645 05/29/17 0723 Assessment and Plan Problem List: (1) Sepsis Status: Acute Plan: Follow Blood cultures Patient is immunocompromised so check for CMV, TB Quantiferon, Influenza Continue Ceftriaxone and Flagyl for now (2) Colitis Status: Acute Plan: Colonoscopy showed severe Ulcerative colitis so started on Asacol and Prednisone. UC can cause fevers however still need to make sure no infectious cause. (3) Fever Status: Acute Katalina Barros MD May 30, 2017 09:44
[2017-05-30] MEDS ORDERED: POTASSIUM CHLORIDE 10 MEQ CONTROLLED RELEASE TAB PO ONE ×2 (10:00→13:00)
[2017-05-30 12:00] VITALS: BP 109/60; PULSE 116; RESP 18; TEMP 101.9; O2SAT 100
[2017-05-30] MEDS: MESALAMINE HD 800 MG DELAYED RELEASE TAB PO SCH ×3 (12:15→23:01)
[2017-05-30 16:00] VITALS: BP 110/69; PULSE 94; RESP 17; TEMP 99; O2SAT 98
[2017-05-30 20:00] VITALS: BP 105/65; PULSE 75; PULSE 88; RESP 16; TEMP 97.4; O2SAT 100
[2017-05-31] VITALS: BP 115/77; PULSE 72; RESP 16; TEMP 96.9; O2SAT 100
[2017-05-31 04:00] VITALS: BP 115/73; PULSE 80; RESP 16; TEMP 96.2; O2SAT 100
[2017-05-31] MEDS: MESALAMINE HD 800 MG DELAYED RELEASE TAB PO SCH ×3 (06:07→21:47)
[2017-05-31] MEDS: NS + KCL 20 MEQ INJ 1,000 ML IV SCH ×2 (06:11→16:51)
[2017-05-31 07:54] VITALS: BP 109/70; PULSE 60; RESP 20; TEMP 97.5; O2SAT 100
[2017-05-31] MEDS: cefTRIAXone INJ 1,000 MG in SODIUM CHLORIDE 0.9% INJ 100 ML IV SCH (08:43)
[2017-05-31] MEDS: PANTOPRAZOLE SOD 40 MG DELAYED RELEASE TAB PO SCH (08:43)
[2017-05-31] MEDS: predniSONE 20 MG TAB PO SCH ×3 (08:43→16:53)
[2017-05-31] MEDS: metroNIDAZOLE 500 MG INJ 100 ML IV SCH ×2 (08:44→16:51)
[2017-05-31] MEDS: SODIUM CHLORIDE 0.9% FLUSH 10 ML FLUSH IV FLUSH SCH ×2 (08:44→21:46)
--- NOTE | 2017-05-31 09:20 | HHI.GIFU ---
Subjective Remarks feels better, less rectal bleed Objective Vitals I&O Vital Signs Date Time Temp Pulse Resp B/P Pulse Ox O2 Delivery O2 Flow Rate FiO2 05/31/17 07:54 97.5 60 20 109/70 100 05/31/17 04:00 96.2 80 16 115/73 100 05/31/17 00:00 96.9 72 16 115/77 100 05/30/17 20:00 97.4 88 16 105/65 100 05/30/17 20:00 75 05/30/17 16:00 99.0 94 17 110/69 98 05/30/17 12:00 101.9 116 18 109/60 100 I/O 05/30/17 05/30/17 05/30/17 05/31/17 05/31/17 05/31/17 07:00 15:00 23:00 07:00 15:00 23:00 Intake Total 2200 ml 500 ml 600 ml 420 ml Output Total 350 ml 400 ml 700 ml Balance 1850 ml 100 ml -100 ml 420 ml Intake Oral 700 ml 0 ml 600 ml 420 ml IV Total 1500 ml Other 500 ml Output Urine Total 350 ml 400 ml 700 ml # Voids 0 2 3 # Bowel Movements 3 0 0 1 Laboratory Laboratory Tests Test 05/30/17 05/31/17 10:35 04:38 Magnesium Level 2.8 Potassium Level 3.8 Date/Time Procedure Status Source Growth 05/30/17 23:00 Influenza Types A,B Antigen (GEOFF) - Final Complete Nasal Washing NEGATIVE FOR FLU A AND B ANTIGEN.... 05/29/17 05:00 Cryptosporidium Exam Received Stool Stool Pending 05/29/17 05:00 Giardia Antigen (GEOFF) Received Stool Stool Pending 05/27/17 23:40 - Final Complete Stool Stool NO ENTERIC PATHOGENS DETECTED BY PCR... 05/27/17 22:32 Aerobic Blood Culture - Preliminary Resulted Blood Peripheral NO GROWTH IN 3 DAYS 05/27/17 22:32 Anaerobic Blood Culture - Preliminary Resulted Blood Peripheral NO GROWTH IN 3 DAYS 05/27/17 21:30 Urine Culture - Final Complete Urine Clean Catch NO GROWTH IN 48 HOURS. Physical Exam HEENT: Pupils round and reactive to light; normocephalic; atraumatic; no jaundice. Throat is clear. NECK: Neck is supple, no JVD, no lymphadenopathy. CHEST: Chest is clear to auscultation and percussion. CARDIAC: Regular rate and rhythm with no murmur gallop or rubs. ABDOMEN: Soft, nondistended, mild diffuse abdominal tenderness; no hepatosplenomegaly; bowel sounds are present in all four quadrants. EXTREMITIES: No clubbing, cyanosis, or edema. SKIN: Normal; no rash; no jaundice. 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 Assessment and Plan Plan EGD showed class C esophagitis, mild gastritis, colon showed sever colitis throughout the colon c/w ulcerative colitis, Bx were done 05-31-17 doing better, less bleed no pain started on diet recommendation 1- f/u Bx 2- start PPI 3-prednisone 60 mg daily for 3 days then change to 40 mg for 1 wk, 30 mg for 1 wk 20 mg 4-start Asacol high dose 5- advanced diet 6- FU with Dr Melendrez as outpatient Avery Romo MD May 31, 2017 09:20
--- NOTE | 2017-05-31 09:27 | HHI.PR ---
Subjective Remarks resting comfortably with no acute distress. says that still has loose bowel movements but with less amount of blood. no abdominal pain,nausea or vomiting. Tmax 101.9. Objective Vitals Vital Signs Date Time Temp Pulse Resp B/P Pulse Ox O2 Delivery O2 Flow Rate FiO2 05/31/17 07:54 97.5 60 20 109/70 100 05/31/17 04:00 96.2 80 16 115/73 100 05/31/17 00:00 96.9 72 16 115/77 100 05/30/17 20:00 97.4 88 16 105/65 100 05/30/17 20:00 75 05/30/17 16:00 99.0 94 17 110/69 98 05/30/17 12:00 101.9 116 18 109/60 100 I/O 05/30/17 05/30/17 05/30/17 05/31/17 05/31/17 05/31/17 07:00 15:00 23:00 07:00 15:00 23:00 Intake Total 2200 ml 500 ml 600 ml 420 ml Output Total 350 ml 400 ml 700 ml Balance 1850 ml 100 ml -100 ml 420 ml Intake Oral 700 ml 0 ml 600 ml 420 ml IV Total 1500 ml Other 500 ml Output Urine Total 350 ml 400 ml 700 ml # Voids 0 2 3 # Bowel Movements 3 0 0 1 Result Diagram: 05/28/17 0645 05/31/17 0438 Imaging Last Impressions Chest CT 05/29/17 0000 Signed Impressions: Service Date/Time: Monday, May 29, 2017 21:03 - CONCLUSION: Unremarkable CT chest. No pneumonia. Jay Soto MD Chest X-Ray 05/27/17 0000 Signed Impressions: Service Date/Time: Saturday, May 27, 2017 22:59 - CONCLUSION: No acute disease. Luis Manuel Hoyos MD Abdomen/Pelvis CT 05/27/17 0000 Signed Impressions: Service Date/Time: Saturday, May 27, 2017 22:55 - CONCLUSION: Diffuse mild colonic wall thickening and diffuse mild colonic distention. Mild small bowel distention. Luis Manuel Hoyos MD Objective Remarks GENERAL: This is a well-nourished, well-developed patient, in no apparent distress. CARDIOVASCULAR: Regular rate and regular rhythm without murmurs, gallops, or rubs. RESPIRATORY: Clear to auscultation. Breath sounds equal bilaterally. No wheezes , rales, or rhonchi. GASTROINTESTINAL: Abdomen soft, non-tender, nondistended. Normal, active bowel sounds MUSCULOSKELETAL: Extremities without clubbing, cyanosis, or edema. NEURO: Alert & Oriented x4 to person, place, time, situation. Moves all ext x4 Procedures none Medications and IVs Current Medications Sodium Chloride 1,000 ml @ 999 mls/hr Q1H1M IV Last administered on 05/27/17 21:55; Start 05/27/17 at 20:45; Stop 05/27/17 at 21:45; Status DC Calcium Gluconate/ Dextrose (Calcium Gluconate Inj/D5W 100 ml Inj) 120 ml @ 120 mls/hr ONCE ONCE IV Last administered on 05/27/17 23:51; Start 05/27/17 at 22:15; Stop 05/27/17 at 23:14; Status DC Diatrizoate Meglum/ Diatrizoate Sod 9 ml 9 ml STK-MED ONCE .ROUTE Last administered on 05/27/17 22:19; Start 05/27/17 at 22:17; Stop 05/27/17 at 22:18 ; Status DC Sodium Chloride 1,000 ml @ 999 mls/hr Q1H1M IV Last administered on 05/27/17 22:57; Start 05/27/17 at 22:30; Stop 05/27/17 at 23:30; Status DC Ceftriaxone Sodium/Sodium Chloride (Rocephin Inj/NS Inj) 100 ml @ 200 mls/hr ONCE ONCE IV Last administered on 05/27/17 22:53; Start 05/27/17 at 22:30; Stop 05/27/17 at 22:59; Status DC Iohexol 97 ml 97 ml STK-MED ONCE IV Last administered on 05/27/17 23:31; Start 05/27/17 at 23:31; Stop 05/27/17 at 23:32; Status DC Ceftriaxone Sodium 1000 mg/ Sodium Chloride 100 ml @ 200 mls/hr Q12H IV Last administered on 05/31/17 08:43; Start 05/28/17 at 09:00 Metronidazole 100 ml @ 100 mls/hr Q8H IV Last administered on 05/31/17 08:44 ; Start 05/28/17 at 00:00 Sodium Chloride (NS 1000 ml Inj) 1,000 ml @ 100 mls/hr Q10H IV Last administered on 05/28/17 01:03; Start 05/28/17 at 00:00; Stop 05/28/17 at 08:12 ; Status DC Sodium Chloride (NS Flush) 2 ml UNSCH PRN IV FLUSH FLUSH AFTER USING IV ACCESS ; Start 05/28/17 at 00:00 Sodium Chloride (NS Flush) 2 ml BID IV FLUSH Last administered on 05/30/17 20: 04; Start 05/28/17 at 09:00 Ondansetron HCl (Zofran Inj) 4 mg Q6H PRN IVP NAUSEA OR VOMITING; Start at 00:00 Acetaminophen (Tylenol) 650 mg Q6H PRN PO FEVER/PAIN SCALE 1 TO 2 Last administered on 05/29/17 18:35; Start 05/28/17 at 00:00 Acetaminophen/ Hydrocodone Bitart ([place] 5-325 Mg) 1 tab Q4H PRN PO PAIN SCALE 3 TO 5; Start 05/28/17 at 00:00 Morphine Sulfate (Morphine Inj) 2 mg Q3H PRN IV Pain 6-10; Start 05/28/17 at 00 :00 Senna/Docusate Sodium (Vijaya-Colace) 1 tab BID PO ; Start 05/28/17 at 09:00; Status Hold Magnesium Hydroxide (Milk Of Magnesia Liq) 30 ml Q12H PRN PO MILD - MODERATE CONSTIPATION; Start 05/28/17 at 00:00 Sennosides (Senokot) 17.2 mg Q12H PRN PO MODERATE - SEVERE CONSTIPATION; Start 05/28/17 at 00:00 Bisacodyl (Dulcolax Supp) 10 mg DAILY PRN RECTAL SEVERE CONSITIPATION; Start at 00:00 Lactulose 30 ml 30 ml DAILY PRN PO SEVERE CONSITIPATION; Start 05/28/17 at 00: 00 Potassium Chloride/Sodium Chloride (NS + KCl 20 Meq Inj) 1,000 ml @ 100 mls/hr Q10H IV Last administered on 05/30/17 20:03; Start 05/28/17 at 08:30 Magnesium Citrate (Citroma Liq) 300 ml ONCE ONCE PO Last administered on 14:23; Start 05/29/17 at 15:00; Stop 05/29/17 at 15:01; Status DC Magnesium Citrate (Citroma Liq) 300 ml ONCE ONCE PO Last administered on 17:00; Start 05/29/17 at 17:00; Stop 05/29/17 at 17:01; Status DC Potassium Chloride (KCl) 40 meq ONCE ONCE PO Last administered on 05/29/17 09 :58; Start 05/29/17 at 09:00; Stop 05/29/17 at 09:01; Status DC Iohexol 75 ml 75 ml STK-MED ONCE IV Last administered on 05/29/17 21:15; Start 05/29/17 at 21:15; Stop 05/29/17 at 21:16; Status DC Lactated Ringer's (Lr 1000 ml Inj) 1,000 ml @ 30 mls/hr Q24H PRN IV SEE LABEL COMMENTS; Start 05/30/17 at 03:30; Stop 06/02/17 at 03:29 Mesalamine (Asacol Hd Dr) 1,600 mg Q8HR PO Last administered on 05/31/17 06:07 ; Start 05/30/17 at 10:00 Prednisone (Deltasone) 20 mg TID PO Last administered on 05/31/17 08:43; Start 05/30/17 at 09:00 Propofol (Diprivan 200 Mg/20 ml Inj) 330 mg STK-MED ONCE IV ; Start 05/30/17 at 07:14; Stop 05/30/17 at 07:36; Status DC Pantoprazole Sodium (Protonix) 40 mg DAILY PO Last administered on 05/31/17 08 :43; Start 05/30/17 at 09:00 Potassium Chloride (KCl) 40 meq ONCE ONCE PO Last administered on 05/30/17 12 :15; Start 05/30/17 at 10:00; Stop 05/30/17 at 10:01; Status DC Potassium Chloride (KCl) 40 meq ONCE ONCE PO Last administered on 05/30/17 12 :16; Start 05/30/17 at 13:00; Stop 05/30/17 at 13:01; Status DC A/P Assessment and Plan A/P - ulcerative colitis s/p EGD/ colonoscopy with esophagitis,gastritis and diffuse colitis- suspect ulcerative colitis- follow the biopsy. started on prednisone and Asacol- on Rocephin and Flagyl- continue PPI GI follow-up appreciated and cleared for discharge tomorrow if stable ( d/w today). -fever- likely due to colitis- ID consult appreciated. -mild hypokalemia;replaced. -hypocalcemia/ hyponatremia; improved -urinary retention- resolved. -psoriasis- f/u as outpatient Discharge Planning dc home tomorrow if stable. Karoline Zavala MD May 31, 2017 09:27
[2017-05-31 12:00] VITALS: BP 107/67; PULSE 89; RESP 20; TEMP 97.8; O2SAT 98
[2017-05-31 14:38] LABS: MITOGEN MINUS NIL RESULT 0.06 IU/mL (()); NIL RESULT 0.14 IU/mL (()); QUANTIFERON TB GOLD RESULT Indeterminate (Negative)
[2017-05-31 16:00] VITALS: BP 109/72; PULSE 80; RESP 20; TEMP 97.5; O2SAT 100
[2017-05-31 20:00] VITALS: BP 112/72; PULSE 54; PULSE 86; RESP 18; TEMP 96.6; O2SAT 98
[2017-05-31] MEDS ORDERED: LEVOFLOXACIN 500 MG TAB PO SCH (20:15)
--- NOTE | 2017-05-31 20:54 | HHI.IDPN ---
Subjective Subjective Remarks Pt with ulcerative colitis who was off meds due to insurance reasons. Was on Humira in past and did well. Overnight events reviewed No fevers No rash Diarrhea freq reduced, more formed, less blood. Reports Antibiotics Flagyl IV Ceftriaxone IV Lines Line sites with no e.o infection. Past Medical History reviewed Allergies: Coded Allergies: Sulfa (Verified Allergy, Unknown, 05/27/17) Levaquin (Verified Adverse Reaction, Severe, Blurred Vision, 05/31/17) Uncoded Allergies: Flagyl oral (Adverse Reaction, Severe, Blurred Vision, 05/31/17) Visual disturbances and retention of urine. Objective . Vital Signs Date Time Temp Pulse Resp B/P Pulse Ox O2 Delivery O2 Flow Rate FiO2 05/31/17 16:00 97.5 80 20 109/72 100 05/31/17 12:00 97.8 89 20 107/67 98 05/31/17 07:54 97.5 60 20 109/70 100 05/31/17 04:00 96.2 80 16 115/73 100 05/31/17 00:00 96.9 72 16 115/77 100 05/30/17 05/30/17 05/31/17 14:59 22:59 06:59 Intake Total 500 ml 600 ml 420 ml Output Total 400 ml 700 ml Balance 100 ml -100 ml 420 ml Intake Oral 0 ml 600 ml 420 ml Other 500 ml Output Urine Total 400 ml 700 ml # Voids 0 2 3 # Bowel Movements 0 0 1 . Laboratory Tests Test 05/30/17 05/31/17 10:35 04:38 Magnesium Level 2.8 MG/DL Potassium Level 3.8 MEQ/L Microbiology Date/Time Procedure Status Source Growth 05/29/17 05:00 Cryptosporidium Exam - Final Complete Stool Stool NEGATIVE - NO CRYPTOSPORIDIUM ANTIGEN... 05/29/17 05:00 Giardia Antigen (GEOFF) - Final Complete Stool Stool NEGATIVE - NO GIARDIA ANTIGEN DETECTE... 05/30/17 23:00 Influenza Types A,B Antigen (GEOFF) - Final Complete Nasal Washing NEGATIVE FOR FLU A AND B ANTIGEN.... Imaging Last Impressions Chest CT 05/29/17 0000 Signed Impressions: Service Date/Time: Monday, May 29, 2017 21:03 - CONCLUSION: Unremarkable CT chest. No pneumonia. Jay Soto MD Chest X-Ray 05/27/17 0000 Signed Impressions: Service Date/Time: Saturday, May 27, 2017 22:59 - CONCLUSION: No acute disease. Luis Manuel Hoyos MD Abdomen/Pelvis CT 05/27/17 0000 Signed Impressions: Service Date/Time: Saturday, May 27, 2017 22:55 - CONCLUSION: Diffuse mild colonic wall thickening and diffuse mild colonic distention. Mild small bowel distention. Luis Manuel Hoyos MD Physical Exam GENERAL: This is a chronically ill patient, in no apparent distress. SKIN: No rashes, ecchymoses Cool and dry. Areas of skin biopsy well healed HEAD: Atraumatic. Normocephalic. No temporal or scalp tenderness. EYES: Pupils equal round and reactive. Extraocular motions intact. No scleral icterus. No injection or drainage. ENT: Nose without bleeding, purulent drainage or septal hematoma. Throat without erythema, tonsillar hypertrophy or exudate. Uvula midline. Airway patent. Some glossitis NECK: Trachea midline. No JVD or lymphadenopathy. Supple, nontender, no meningeal signs. CARDIOVASCULAR: Regular rate and rhythm without murmurs, gallops, or rubs. RESPIRATORY: Clear to auscultation. Breath sounds equal bilaterally. No wheezes , rales, or rhonchi. GASTROINTESTINAL: Abdomen soft, non-tender, nondistended. No hepato-splenomegaly , or palpable masses. No guarding. MUSCULOSKELETAL: Extremities without clubbing, cyanosis, or edema. No joint tenderness, effusion, or edema noted. No calf tenderness. Negative Homans sign bilaterally. NEUROLOGICAL: Awake and alert. Cranial nerves II through XII intact. Motor and sensory grossly within normal limits. Five out of 5 muscle strength in all muscle groups. Normal speech. Psych cooperative Assessment & Plan Remarks Possible Sepsis on admission Fever likely secondary to Ulcerative colitis and bacterial colitis combination. Diarrhea: likely UC flare Cdiff negative. Levaquin and Flagyl allergy. Recs: DC Ceftriaxone IV DC Flagyl IV Start Augmentin oral see if pt tolerates. If patient tolerates this regimen ok to DC home from ID standpoint on oral augmentin (can be liquid) for 7 days. D/w Hepas PA Will sign off please call back if any change in clinical condition or questions. Sarai Batista MD May 31, 2017 20:54
[2017-05-31] MEDS ORDERED: metroNIDAZOLE 500 MG TAB PO SCH (22:00)
[2017-06-01] VITALS: BP 115/78; PULSE 68; RESP 18; TEMP 96.7; O2SAT 99
[2017-06-01] MEDS: NS + KCL 20 MEQ INJ 1,000 ML IV SCH (01:44)
[2017-06-01 03:52] LABS: IGA SERUM 264 mg/dL (81-463); TISSUE TRANSGLUTAMINASE AB IGG ND U/mL (())
[2017-06-01 04:00] VITALS: BP 110/69; PULSE 66; RESP 18; TEMP 98.4; O2SAT 98
[2017-06-01] MEDS: MESALAMINE HD 800 MG DELAYED RELEASE TAB PO SCH (06:41)
[2017-06-01 08:00] VITALS: BP 116/74; PULSE 59; PULSE 71; RESP 16; TEMP 98.5; O2SAT 100
[2017-06-01] MEDS: SODIUM CHLORIDE 0.9% FLUSH 10 ML FLUSH IV FLUSH SCH (09:00)
[2017-06-01] MEDS: predniSONE 20 MG TAB PO SCH (09:20)
[2017-06-01] MEDS: PANTOPRAZOLE SOD 40 MG DELAYED RELEASE TAB PO SCH (09:20)
[2017-06-01] MEDS ORDERED: PANT40TA3 PO (10:18)
[2017-06-01] MEDS ORDERED: MESA1TAB2 PO (10:18)
[2017-06-01] MEDS ORDERED: PRED20 PO (10:18)
[2017-06-01] MEDS ORDERED: PRED10 PO (10:18)
[2017-06-01] MEDS ORDERED: AUGM875T3 PO (10:18)
[2017-06-01] MEDS ORDERED: POTA-163 PO (10:23)
--- NOTE | 2017-06-01 10:24 | HHI.DCPOC ---
Discharge Care Plan Diagnosis: (1) Sepsis (2) Fever (3) Colitis (4) Hypokalemia Goals to Promote Your Health * To prevent worsening of your condition and complications * To maintain your health at the optimal level Directions to Meet Your Goals Take your medications as prescribed Follow your dietary instruction Follow activity as directed Keep your appointments as scheduled Take your immunizations and boosters as scheduled If your symptoms worsen call your PCP, if no PCP go to Urgent Care Center or Emergency Room Smoking is Dangerous to Your Health. Avoid second hand smoke Call the 24-hour hour crisis hotline for domestic abuse at Gregg Flores DO Jun 01, 2017 10:24
--- NOTE | 2017-06-01 10:33 | HHI.DS ---
Discharge Summary Admission Date May 28, 2017 at 00:02 Discharge Date: Jun 01, 2017 Admitting Diagnosis sepsis, enterocolitis (1) Colitis ICD Code: K52.9 Diagnosis: Principal (2) Hypokalemia ICD Code: E87.6 Procedures none Brief History - From Admission patient is a 31 y/o male with history of psoriasis who presented to ER with bloody diarrhea. he says that it started three weeks ago. he says that he went to the doctor and he was prescribed levaquin and flagyl. he says that after taking flagyl he stared to have urinary retention for which he stopped taking it. he says that his bowel movement is ' just some mucous and blood'. he reports on and off fever and night sweats at home. he's lost about three pounds within the past three weeks and reports loss of appetite. he says that he has mild abominal pain more or less localized to the LLQ. CBC/BMP: 05/28/17 0645 05/31/17 0438 Significant Findings Laboratory Tests Test 05/30/17 10:35 Magnesium Level 2.8 MG/DL (1.5-2.5) Imaging Last Impressions Chest CT 05/29/17 0000 Signed Impressions: Service Date/Time: Monday, May 29, 2017 21:03 - CONCLUSION: Unremarkable CT chest. No pneumonia. Jay Soto MD Chest X-Ray 05/27/17 0000 Signed Impressions: Service Date/Time: Saturday, May 27, 2017 22:59 - CONCLUSION: No acute disease. Luis Manuel Hoyos MD Abdomen/Pelvis CT 05/27/17 0000 Signed Impressions: Service Date/Time: Saturday, May 27, 2017 22:55 - CONCLUSION: Diffuse mild colonic wall thickening and diffuse mild colonic distention. Mild small bowel distention. Luis Manuel Hoyos MD PE at Discharge GENERAL: This is a well-nourished, well-developed patient, in no apparent distress. CARDIOVASCULAR: Regular rate and regular rhythm without murmurs, gallops, or rubs. RESPIRATORY: Clear to auscultation. Breath sounds equal bilaterally. No wheezes , rales, or rhonchi. GASTROINTESTINAL: Abdomen soft, non-tender, nondistended. Normal, active bowel sounds MUSCULOSKELETAL: Extremities without clubbing, cyanosis, or edema. NEURO: Alert & Oriented x4 to person, place, time, situation. Moves all ext x4 Pt update on day of discharge The patient was feeling well. He said he still has significant amounts of stools with blood in it but it is getting less and less. He has no abdominal pain. He is tolerating a diet. He has been ambulatory. Discussed with . Hospital Course Ulcerative colitis CT showed: Diffuse mild colonic wall thickening and diffuse mild colonic distention; Mild small bowel distention. GI was consulted. He was started on IVFs and antibiotics. S/p EGD/ colonoscopy with esophagitis, gastritis and diffuse colitis. Started on prednisone and Asacol. Rocephin and Flagyl were changed to Augmentin by infectious disease. He was continued on a PPI. He will continue potassium supplementation. He will advance his diet as tolerated. He will complete a prednisone taper. He will follow up with GI as an outpt. Hypokalemia Replaced with IVFs. He will continue KCl supplementation upon discharge. He will have repeat labs in 3-5 days. Pt Condition on Discharge: Stable Discharge Disposition: Discharge Home Discharge Time: > 30 minutes Discharge Instructions DIET: Follow Instructions for: As Tolerated, No Restrictions, Low Residue Diet Activities you can perform: Weight Bearing as Adrian Follow up Referrals: Gastroenterology - 1 Week PCP Follow-up - 1 Week New Orders: BASIC METABOLIC PROF - 3-5 Days New Medications: Amoxicillin-Clavulanate (Augmentin) 875-125 Mg Tab 1 TAB PO BID Infection #14 Ref 0 TAB Potassium Chloride ER (Potassium Chloride ER) 20 Meq Tab 20 MEQ PO DAILY Electrolyte Replacement #7 Ref 0 TAB Prednisone (Prednisone) 20 Mg Tab 60 MG PO DAILY Colitis Days 3 Ref 0 TAB Prednisone (Prednisone) 20 Mg Tab 40 MG PO DAILY Take 40 mg (2 tablets) daily for 5 days Colitis Days 7 Ref 0 TAB Prednisone (Prednisone) 10 Mg Tab 30 MG PO DAILY Colitis Days 7 Ref 0 TAB Prednisone (Prednisone) 20 Mg Tab 20 MG PO DAILY Colitis #7 Ref [address] (Mesal[address] DR) 800 Mg Tab 1600 MG PO Q8HR Colitis Days 30 TAB Pantoprazole (Pantoprazole) 40 Mg Tab 40 MG PO DAILY Colitis #30 TAB Continued Medications: Acetaminophen (Mapap) 500 Mg Cap 500 MG PO Q4-6H PRN PAIN Ref 0 CAP Discontinued Medications: Levofloxacin (Levofloxacin) 500 Mg Tablet 500 MG PO DAILY Infection Ref 0 TAB Metronidazole (Metronidazole) 500 Mg Tab 500 MG PO TID Infection Ref 0 TAB Grgeg Flores DO Jun 01, 2017 10:33
[2017-06-01 13:51] LABS: ENDOMYSIAL AB TITER ND (<1:5); TISSUE TRANSGLUTAMINASE AB LESS THAN 1 U/mL (())
[2017-06-02 13:52] LABS: HEP B DNA R1 LESS THAN 20 IU/mL (()); HEP B DNA R2 LESS THAN 1.30 (())
== END 2017-06-01 11:16 | disposition home or self-care (01) | DRG 872 ==
LOC: PHED 20:02 → PHEDA 05-28 00:02 → PHEDH 05-28 04:01 → PH3B 05-28 05:39
PROVIDERS: ADMIT Hospitalist; ATTEND Hospitalist
PROC: 0DBK8ZX Excision of Ascending Colon, Via Natural or Artificial Opening Endoscopic, Diagnostic (ICD-10-PCS; 2017-05-30)
PROC: 0DBL8ZX Excision of Transverse Colon, Via Natural or Artificial Opening Endoscopic, Diagnostic (ICD-10-PCS; 2017-05-30)
PROC: 0DBN8ZX Excision of Sigmoid Colon, Via Natural or Artificial Opening Endoscopic, Diagnostic (ICD-10-PCS; 2017-05-30)
PROC: 0DBM8ZX Excision of Descending Colon, Via Natural or Artificial Opening Endoscopic, Diagnostic (ICD-10-PCS; 2017-05-30)
PROC: 0DBH8ZX Excision of Cecum, Via Natural or Artificial Opening Endoscopic, Diagnostic (ICD-10-PCS; 2017-05-30)
PROC: 0DB48ZX Excision of Esophagogastric Junction, Via Natural or Artificial Opening Endoscopic, Diagnostic (ICD-10-PCS; principal; 2017-05-30 07:08)
PROC: 0DB68ZX Excision of Stomach, Via Natural or Artificial Opening Endoscopic, Diagnostic (ICD-10-PCS; 2017-05-30 07:08)
DX: A41.9 Sepsis, unspecified organism (principal); E87.1 Hypo-osmolality and hyponatremia; L40.50 Arthropathic psoriasis, unspecified; E83.51 Hypocalcemia; K51.018 Ulcerative (chronic) pancolitis with other complication; A09 Infectious gastroenteritis and colitis, unspecified; E87.6 Hypokalemia; R33.9 Retention of urine, unspecified; K20.9 Esophagitis, unspecified; K29.70 Gastritis, unspecified, without bleeding
CPT/HCPCS: 51702; 71010; 71260; 74177; 80048; 80053; 81001; 82784; 83516; 83605; 83735; 84132; 84155; 85007; 85027; 85652; 86038; 86480; 87040; 87086; 87328; 87329; 87493; 87497; 87506; 87517; 87804; 88305; 88312; 93005; 96361; 96365; 96375; J0610; J0696; J3480; J7030; J7512; Q9963; Q9967

== ENCOUNTER 2017-06-13 14:39 | Inpatient (IN) | payer OTHER ==
[2017-06-13] VITALS (7 sets, daily range): BP systolic 109–132; BP diastolic 77–84; PULSE 103–124; RESP 16–18; TEMP 97.6; O2SAT 96–100
[~2017-06-13] VITALS: Ht 180.3 cm; Wt 58.7 kg
[~2017-06-13 14:39] MED LIST: AUGM875T3 PO; LACTATED RINGER'S 1000 ML INJ 1,000 ML IV ONE; MAPA500C PO; MESA1TAB2 PO; NEOSTIGMINE 3 MG/3 ML SYR IV ONE; NORMOSOL R INJ 2,000 ML IV ONE; ONDANSETRON HCL 4 MG/2 ML VIAL IV PUSH ONE; PANT40TA3 PO; PHENYLEPH/NS 1000 MCG/10 ML SYR IV ONE; POTA-163 PO; PRED10 PO; PRED20 PO; PROPOFOL 200 MG/20 ML AMP IV ONE
[2017-06-13] MEDS ORDERED: SODIUM CHLOR 0.9% 1000 ML INJ 1,000 ML IV SCH ×2 (15:01→17:00)
--- NOTE | 2017-06-13 15:08 | PD ---
HPI Chief Complaint: GI Complaint Time Seen by Provider: 14:46 Travel History International Travel<30 days: No Contact w/Intl Traveler<30days: No Traveled to known affect area: No History of Present Illness HPI The patient is a 31-year-old male who presents to the emergency department via private vehicle for increasing abdominal pain and distention. The patient has a history of psoriasis and was on Humira for approximate 7 years. The patient then had insurance changed and they would no longer cover Humira, starting last November. The patient states that he recently 1 on a honeymoon in May and had diarrhea in [place]. The patient was diagnosed with Yersinia diarrhea was placed on Levaquin and Flagyl at that time. However, the patient continued having symptoms and was seen in the emergency department in May. The patient was subsequently admitted after he had a CT the abdomen and pelvis which revealed diffuse enterocolitis. While the patient was admitted underwent colonoscopy by Dr. Romo which revealed ulcerative colitis. The patient was placed on Asacol and prednisone in the emergency department was subsequent discharged home. The patient continues to have some bloody diarrhea , however, he notes he has more stool unless blood currently. However, he has increasing abdominal pain and distention with decreased oral intake. The patient states he has persistent nausea, postprandial vomiting, and hiccups. The patient estimates a 25 pound weight loss from 1 month ago. The patient just went from prednisone 40 mg per day to prednisone 30 mg today. The patient was unable to follow-up with Dr. Romo on an outpatient basis and subsequently saw Dr. Sandy on an outpatient basis. He last saw him one week ago today, after he was discharged from the hospital. He denies any fever, does note increasing generalized weakness secondary to poor oral intake. PFSH Past Medical History Arthritis: Yes (psoriatic arthritis) Cancer: No Cardiovascular Problems: No Endocrine: No Genitourinary: Yes (retention on admit) Hiatal Hernia: Yes (maybe) Immune Disorder: No Musculoskeletal: Yes Neurologic: No Psychiatric: No Reproductive: No Respiratory: No Integumentary: Yes (scriasis) Past Surgical History Abdominal Surgery: No Cardiac Surgery: No Ear Surgery: No Endocrine Surgery: No Eye Surgery: No Genitourinary Surgery: No Gynecologic Surgery: Yes Oral Surgery: No Thoracic Surgery: No Social History Alcohol Use: Yes (rarely) Tobacco Use: No Substance Use: No Allergies-Medications (Allergen,Severity, Reaction): Coded Allergies: Sulfa (Verified Allergy, Unknown, 06/13/17) Levaquin (Verified Adverse Reaction, Severe, Blurred Vision, 06/13/17) Uncoded Allergies: Flagyl oral (Adverse Reaction, Severe, Blurred Vision, 05/31/17) Visual disturbances and retention of urine. Reported Meds & Prescriptions Reported Meds & Active Scripts Active Prednisone 20 Mg Tab 20 Mg PO DAILY Prednisone 10 Mg Tab 30 Mg PO DAILY 7 Days Review of Systems Except as stated in HPI: all other systems reviewed are Neg General / Constitutional: No: Fever HENT: No: Lightheadedness Cardiovascular: No: Chest Pain or Discomfort Respiratory: No: Shortness of Breath Gastrointestinal: Positive: Nausea, Vomiting, Diarrhea, Abdominal Pain, Loss of Appetite Musculoskeletal: Positive: Weakness Neurologic: Positive: Weakness Physical Exam Narrative GENERAL: Awake, alert, 31-year-old male who appears his stated age and appears slightly emaciated. SKIN: Focused skin assessment warm/dry. HEAD: Atraumatic. Normocephalic. EYES: Pupils equal and round. The patient has lost the periorbital fat pads. ENT: No nasal bleeding or discharge. Dry mucous membranes. NECK: Trachea midline. No JVD. CARDIOVASCULAR: Regular, tachycardic with a heart rate of 130. RESPIRATORY: No accessory muscle use. Clear to auscultation. Breath sounds equal bilaterally. GASTROINTESTINAL: Abdomen distended, tender to palpation, positive tympany, rigid. MUSCULOSKELETAL: No obvious deformities. No clubbing. No cyanosis. No edema. Slightly emaciated. NEUROLOGICAL: Awake and alert. No obvious cranial nerve deficits. Motor grossly within normal limits. Normal speech. PSYCHIATRIC: Appropriate mood and affect; insight and judgment normal. Data Data Last Documented VS Vital Signs Date Time Temp Pulse Resp B/P Pulse Ox O2 Delivery O2 Flow Rate FiO2 06/13/17 15:56 16 06/13/17 15:00 96 Room Air 06/13/17 14:50 97.6 124 109/77 Orders Complete Blood Count With Diff (06/13/17 15:01) Comprehensive Metabolic Panel (06/13/17 15:01) Lipase (06/13/17 15:01) Lactic Acid (06/13/17 15:01) Urinalysis - C+S If Indicated (06/13/17 15:01) Iv Access Insert/Monitor (06/13/17 15:01) Ecg Monitoring (06/13/17 15:01) Oximetry (06/13/17 15:01) Morphine Inj (Morphine Inj) (06/13/17 15:15) Ondansetron Inj (Zofran Inj) (06/13/17 15:15) Sodium Chlor 0.9% 1000 Ml Inj (Ns 1000 M (06/13/17 15:01) Sodium Chloride 0.9% Flush (Ns Flush) (06/13/17 15:15) Electrocardiogram (06/13/17 15:01) Abdomen, Upright Only (06/13/17 15:01) Famotidine Inj (Pepcid Inj) (06/13/17 15:15) Methylprednisolone So Succ Inj (Solumedr (06/13/17 15:15) Sodium Chlor 0.9% 1000 Ml Inj (Ns 1000 M (06/13/17 16:00) Rigo-Gastric Tube Insert/Mon (06/13/17 15:52) Cefepime Inj (Maxipime Inj) (06/13/17 16:15) Metronidazole 500 Mg Inj (Flagyl 500 Mg (06/13/17 16:15) Consult General Surgery (06/13/17 ) Consult Colorectal Surgery (06/13/17 ) Admit Order (Ed Use Only) (06/13/17 16:17) Labs Laboratory Tests Test 06/13/17 14:55 White Blood Count 19.5 TH/MM3 Red Blood Count 4.65 MIL/MM3 Hemoglobin 13.9 GM/DL Hematocrit 42.4 % Mean Corpuscular Volume 91.2 FL Mean Corpuscular Hemoglobin 29.9 PG Mean Corpuscular Hemoglobin 32.8 % Concent Red Cell Distribution Width 12.2 % Platelet Count 535 TH/MM3 Mean Platelet Volume 7.1 FL Neutrophils (%) (Auto) 91.4 % Lymphocytes (%) (Auto) 5.7 % Monocytes (%) (Auto) 2.5 % Eosinophils (%) (Auto) 0.1 % Basophils (%) (Auto) 0.3 % Neutrophils # (Auto) 17.8 TH/MM3 Lymphocytes # (Auto) 1.1 TH/MM3 Monocytes # (Auto) 0.5 TH/MM3 Eosinophils # (Auto) 0.0 TH/MM3 Basophils # (Auto) 0.1 TH/MM3 CBC Comment DIFF FINAL Differential Comment Sodium Level 125 MEQ/L Potassium Level 5.4 MEQ/L Chloride Level 88 MEQ/L Carbon Dioxide Level 27.6 MEQ/L Anion Gap 9 MEQ/L Blood Urea Nitrogen 27 MG/DL Creatinine 0.99 MG/DL Estimat Glomerular Filtration 89 ML/MIN Rate Random Glucose 161 MG/DL Lactic Acid Level 3.7 mmol/L Calcium Level 8.4 MG/DL Total Bilirubin 0.7 MG/DL Aspartate Amino Transf 19 U/L (AST/SGOT) Alanine Aminotransferase 117 U/L (ALT/SGPT) Alkaline Phosphatase 121 U/L Total Protein 7.7 GM/DL Albumin 2.0 GM/DL Lipase 111 U/L [facility] Medical Decision Making Medical Screen Exam Complete: Yes Emergency Medical Condition: Yes Medical Record Reviewed: Yes Interpretation(s) EKG reveals sinus tachycardia with a heart rate of 121. Peaked T waves in V2, V3, and V4. Laboratory Tests Test 06/13/17 14:55 White Blood Count 19.5 TH/MM3 Red Blood Count 4.65 MIL/MM3 Hemoglobin 13.9 GM/DL Hematocrit 42.4 % Mean Corpuscular Volume 91.2 FL Mean Corpuscular Hemoglobin 29.9 PG Mean Corpuscular Hemoglobin 32.8 % Concent Red Cell Distribution Width 12.2 % Platelet Count 535 TH/MM3 Mean Platelet Volume 7.1 FL Neutrophils (%) (Auto) 91.4 % Lymphocytes (%) (Auto) 5.7 % Monocytes (%) (Auto) 2.5 % Eosinophils (%) (Auto) 0.1 % Basophils (%) (Auto) 0.3 % Neutrophils # (Auto) 17.8 TH/MM3 Lymphocytes # (Auto) 1.1 TH/MM3 Monocytes # (Auto) 0.5 TH/MM3 Eosinophils # (Auto) 0.0 TH/MM3 Basophils # (Auto) 0.1 TH/MM3 CBC Comment DIFF FINAL Differential Comment Sodium Level 125 MEQ/L Potassium Level 5.4 MEQ/L Chloride Level 88 MEQ/L Carbon Dioxide Level 27.6 MEQ/L Anion Gap 9 MEQ/L Blood Urea Nitrogen 27 MG/DL Creatinine 0.99 MG/DL Estimat Glomerular Filtration 89 ML/MIN Rate Random Glucose 161 MG/DL Lactic Acid Level 3.7 mmol/L Calcium Level 8.4 MG/DL Total Bilirubin 0.7 MG/DL Aspartate Amino Transf 19 U/L (AST/SGOT) Alanine Aminotransferase 117 U/L (ALT/SGPT) Alkaline Phosphatase 121 U/L Total Protein 7.7 GM/DL Albumin 2.0 GM/DL Lipase 111 U/L Upright x-ray of the abdomen reveals perforated viscus with free fair under both diaphragms Differential Diagnosis Differential diagnosis includes ulcerative colitis exacerbation, enteritis, colitis, ileus, partial small bowel obstruction, dehydration, electrolyte abnormality, malnutrition. Narrative Course IV was established, labs are drawn and sent, and the patient was placed on cardiac telemetry monitoring and continuous pulse oximetry monitoring. 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 I placed a call to the patient's core inserter at 3:05 PM, Dr. Sandy, currently awaiting a callback from Dr. Muniz. An upright x-ray was performed to evaluate for air- fluid levels. X-ray reveals free air under the diaphragm consistent with probable perforation. The patient had an NG tube placed. The patient was administered normal saline, cefepime IV, and Flagyl IV. I discussed the patient with the on-call general surgeon, Dr. Gottlieb, who will personally call the on-call colorectal surgeon, Dr. Menendez. The patient will be an emergent transfer to [facility] as he will need to undergo emergent diagnostics last exploratory/definitive surgery. I discussed the patient with the colorectal surgeon, Dr. Menendez, who will take the patient to the operating room. Critical Care Narrative Aggregate critical care time was 40 minutes. Time to perform other separately billable procedures was not included in the critical care time. My time did not include minutes spent treating any other patients simultaneously or on activities that did not directly contribute to the patient's treatment. The services I provided to this patient were to treat and/or prevent clinically significant deterioration that could result in: Sepsis, dehydration, septic shock. I provided critical care services requiring my management, as noted below: Chart data review, documentation time, medication orders and management, vital sign assessments/reviewing monitor data, ordering and reviewing lab tests, ordering and interpreting/reviewing x-rays and diagnostic studies, care of the patient and discussion of the patient with the admitting physicians. Sepsis Criteria SIRS Criteria (2 or more): Heart rate over 90, WBC > 30730, < 4000 or > 10% bands Physician Communication Physician Communication I discussed the patient with the on-call general surgeon, Dr. Gottlieb, who will discuss the case with the on-call colorectal surgeon, Dr. Menendez. I discussed the patient with the healthcare social worker, Dr. Gibbs, who agrees with admission. I discussed the patient with Dr. Menendez, the colorectal surgeon, who will take the patient to the operating room emergently. Diagnosis Primary Impression: Perforated viscus Additional Impressions: Leukocytosis Qualified Code: D72.829 - Leukocytosis, unspecified type Hyponatremia Lactic acidosis Admitting Information Admitting Physician Requests: Admit Condition: Serious Alfa Nieto MD Jun 13, 2017 15:08
[2017-06-13] MEDS ORDERED: SODIUM CHLORIDE 0.9% FLUSH 10 ML FLUSH IV FLUSH PRN (15:15)
[2017-06-13] MEDS ORDERED: FAMOTIDINE 20 MG/2 ML VIAL IV PUSH ONE (15:15)
[2017-06-13] MEDS ORDERED: methylPREDNISolone SOD SUCC 125 MG/2 ML VIAL IV PUSH ONE (15:15)
[2017-06-13] MEDS ORDERED: MORPHINE SULFATE 4 MG/ML INJ IV PUSH ONE (15:15)
[2017-06-13] MEDS ORDERED: ONDANSETRON HCL 4 MG/2 ML VIAL IVP ONE (15:15)
[2017-06-13 15:16] LABS: AUTOMATED NEUTROPHIL # 17.8 TH/MM3 (1.8-7.7); BASOPHIL # 0.1 TH/MM3 (0-0.2); BASOPHIL % 0.3 % (0.0-2.0); EOSINOPHIL % 0.1 % (0.0-4.0); HEMATOCRIT 42.4 % (39.0-51.0); LYMPH % 5.7 % (9.0-44.0); LYMPHOCYTE # 1.1 TH/MM3 (1.0-4.8); MEAN CELL VOLUME 91.2 FL (80.0-100.0); MEAN CORPUSCULAR HEMOGLOBIN 29.9 PG (27.0-34.0); MEAN CORPUSCULAR HGB CONC 32.8 % (32.0-36.0); MONO % 2.5 % (0.0-8.0); NEUT % 91.4 % (16.0-70.0); PLATELET COUNT 535 TH/MM3 (150-450); RED BLOOD COUNT 4.65 MIL/MM3 (4.50-5.90); RED CELL DISTRIBUTION WIDTH 12.2 % (11.6-17.2); WHITE BLOOD COUNT 19.5 TH/MM3 (4.0-11.0)
[2017-06-13 15:19] LABS: HEMO FLAGS DIFF FINAL
[2017-06-13 15:31] LABS: CHLORIDE 88 MEQ/L (98-107); POTASSIUM 5.4 MEQ/L (3.5-5.1); SODIUM (NA) 125 MEQ/L (136-145)
[2017-06-13 15:35] LABS: BLOOD UREA NITROGEN 27 MG/DL (7-18)
[2017-06-13 15:36] LABS: ANION GAP 9 MEQ/L (5-15); BICARBONATE 27.6 MEQ/L (21.0-32.0)
[2017-06-13 15:38] LABS: ALT (GPT) 117 U/L (12-78); AST (GOT) 19 U/L (15-37); GLOMERULAR FILTRATION RATE 89 ML/MIN (>89)
[2017-06-13 15:40] LABS: TOTAL BILIRUBIN ADULT 0.7 MG/DL (0.2-1.0)
[2017-06-13 15:41] LABS: ALKALINE PHOSPHATASE 121 U/L (45-117)
[2017-06-13] MEDS ORDERED: SODIUM CHLOR 0.9% 1000 ML INJ 1,000 ML IV ONE (16:00)
[2017-06-13] MEDS ORDERED: metroNIDAZOLE 500 MG INJ 100 ML IV ONE (16:15)
[2017-06-13] MEDS ORDERED: CEFEPIME INJ 2,000 MG in SODIUM CHLORIDE 0.9% INJ 100 ML IV ONE (16:15)
--- NOTE | 2017-06-13 16:46 | RADRPT ---
EXAM DATE/TIME: 06/13/2017 15:06 [facility] COMPARISON: No previous studies available for comparison. INDICATIONS : Abdominal pain. MEDICAL HISTORY : Ulcerative colitis. SURGICAL HISTORY : None. ENCOUNTER: Initial ACUITY: 4 - 6 days PAIN SCORE: 8/10 LOCATION: Bilateral upper quadrant abdomen. FINDINGS: Large amount of free air is identified in the peritoneal cavity. There is no significant intestinal d istention. Mild atelectasis is seen in the lung bases. CONCLUSION: Pneumoperitoneum characteristic of perforated viscus. Juan Johnson MD on June 13, 2017 at 16:41 Board Certified Radiologist. This report was verified electronically.
[2017-06-13] MEDS ORDERED: PIPERACIL-TAZO 3.375 GM PREMIX 50 ML IV ONE (19:15)
[2017-06-13] MEDS ORDERED: MIDAZOLAM HCL 2 MG/2 ML VIAL ONE (19:58)
[2017-06-13] MEDS ORDERED: fentaNYL CITRATE 250 MCG/5 ML AMP ONE (19:58)
[2017-06-13] MEDS ORDERED: HYDROmorphone HCL PF 2 MG/ML VIAL ONE (19:58)
[2017-06-13] MEDS ORDERED: SUGAMMADEX SODIUM 200 MG/2 ML VIAL IV PUSH ONE ×6 (19:58→21:24)
[2017-06-13] MEDS ORDERED: DO NOT ADM ANY ANTICOAGULANT DRUGS PRN (21:15)
[2017-06-13] MEDS ORDERED: D5-NS + KCL 20 MEQ INJ 1,000 ML IV SCH (21:28)
[2017-06-13] MEDS ORDERED: ENALAPRILAT 2.5 MG/2 ML VIAL IV PRN (21:30)
[2017-06-13] MEDS ORDERED: ENALAPRILAT 1.25 MG/ML VIAL IV PRN (21:30)
[2017-06-13] MEDS ORDERED: diphenhydrAMINE HCL 50 MG/ML VIAL IV PRN (21:30)
[2017-06-13] MEDS ORDERED: Post-op Orders (for Pharmacy) MISC XX ONE (21:30)
[2017-06-13] MEDS: SODIUM CHLORIDE 0.9% FLUSH 5 ML FLUSH IVF SCH (21:30)
[2017-06-13] MEDS ORDERED: ACETAMINOPHEN 325 MG TAB PO PRN (21:30)
[2017-06-13] MEDS ORDERED: BENZOCAINE 6 MG/MENTHOL 10 MG LOZENGE BUCCAL PRN (21:30)
[2017-06-13] MEDS ORDERED: ACETAMINOPHEN/HYDROcodone 325 MG/5 MG TAB PO PRN (21:30)
[2017-06-13] MEDS ORDERED: NALOXONE HCL 0.4 MG/ML AMP IV PRN (21:30)
[2017-06-13] MEDS ORDERED: SODIUM CHLORIDE 0.9% FLUSH 5 ML FLUSH IVF PRN (21:30)
[2017-06-13] MEDS ORDERED: ONDANSETRON HCL 4 MG/2 ML VIAL IV PRN (21:30)
[2017-06-13] MEDS ORDERED: POTASSIUM CHLOR 20 MEQ PREMIX 100 ML IV PRN (21:30)
[2017-06-13] MEDS ORDERED: D5-1/2 NS + KCL 20 MEQ INJ 1,000 ML ONE (21:40)
[2017-06-13] MEDS: PCA - TOTAL MG MORPHINE DELIVERED PER SHIFT SCH (22:00)
[2017-06-13 22:14] LABS: BICARBONATE 26.6 MEQ/L (21.0-32.0); POTASSIUM 5.3 MEQ/L (3.5-5.1)
[2017-06-13 22:16] LABS: AUTOMATED NEUTROPHIL # 15.2 TH/MM3 (1.8-7.7); BASOPHIL % 0.1 % (0.0-2.0); EOSINOPHIL % 0.1 % (0.0-4.0); HEMATOCRIT 35.9 % (39.0-51.0); HEMO FLAGS DIFF FINAL; LYMPH % 4.1 % (9.0-44.0); LYMPHOCYTE # 0.7 TH/MM3 (1.0-4.8); MEAN CORPUSCULAR HEMOGLOBIN 30.7 PG (27.0-34.0); MEAN CORPUSCULAR HGB CONC 33.7 % (32.0-36.0); MONO % 2.2 % (0.0-8.0); NEUT % 93.5 % (16.0-70.0); PLATELET COUNT 411 TH/MM3 (150-450); RED BLOOD COUNT 3.94 MIL/MM3 (4.50-5.90); RED CELL DISTRIBUTION WIDTH 13.3 % (11.6-17.2); WHITE BLOOD COUNT 16.2 TH/MM3 (4.0-11.0)
[2017-06-13 22:28] LABS: CALCIUM-PROTEIN CORRECTED 7.9 MG/DL (8.5-10.1)
--- NOTE | 2017-06-13 22:38 | HHI.HP ---
[facility] Service Critical Care Medicine Primary Care Physician No Primary Care Physician Admission Diagnosis perforated viscus, ulcerative colitis, lactic acidosis, hyponatremia Diagnosis: (1) Perforated viscus Diagnosis: Principal (2) Elevated ALT measurement Diagnosis: Principal (3) Anemia Diagnosis: Principal (4) Leukocytosis Diagnosis: Principal (5) Arthritis with psoriasis Diagnosis: Principal (6) Lactic acidosis Diagnosis: Principal (7) Hyperkalemia Diagnosis: Principal (8) Hyponatremia Diagnosis: Principal (9) History of recent steroid use Diagnosis: Principal (10) Ulcerative colitis Diagnosis: Principal (11) Severe sepsis Diagnosis: Principal Chief Complaint: Abdominal pain/distended abdomen Travel History International Travel<30 Days: No Contact w/Intl Traveler <30 Da: No Traveled to Known Affected Are: No Sepsis Criteria SIRS Criteria (2 or more): WBC > 58374, < 4000 or > 10% bands Sepsis Criteria (SIRS+source): Infect source susp/known Severe Sepsis (+one): Lactate >2 Criteria Outcome: Meets severe sepsis criteria History of Present Illness 31-year-old male. Date of admission 06/13/2017. Past medical history includes recent diagnosis of ulcerative colitis 05/23 on chronic prednisone taper. The patient also has a history of psoriasis and was on Humira for approximate 7 years. In office since 11/23. diagnosed in [place] with Yersinia diarrhea was placed on Levaquin and Flagyl at that time. However, the patient continued having symptoms and was seen in the emergency department in May. The patient was subsequently admitted after he had a CT the abdomen and pelvis which revealed diffuse enterocolitis in 05/23. [place]. \ Dr. Romo for EGD/ colonoscopy which will class C esophagitis, gastritis and ulcerative colitis. The patient was placed on Asacol and prednisone in the emergency department was subsequent discharged home. He is currently on a prednisone taper down to 30 mg daily recently, noted to have has increasing abdominal pain and distention with decreased oral intake. The patient states he has persistent nausea, postprandial vomiting, and singultus. The patient estimates a 25 pound weight loss from 1 month ago. The patient just went from prednisone 40 mg per day to prednisone 30 mg today. Laboratories revealed his lactic acidosis of 3.7, elevated white blood cell count and elevated potassium and ALT. CT abdomen/os revealed pneumoperitoneum. Dr. Mcneill/colo rectal surgery was consulted. Today, patient asked for treatment laparotomy, subtotal colectomy with ileostomy and rigid sigmoidoscopy. Right lower quadrant os ostomy. Left YUNIOR placement. EBL 100. 200 cc urine output. 2800 cc crystalloid. No complications. Extubated in PACU. 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 Review of Systems Constitutional: COMPLAINS OF: Fatigue, Weight loss, DENIES: Fever, Weight gain Endocrine: DENIES: Heat/cold intolerance Eyes: DENIES: Blurred vision, Double Vision Ears, nose, mouth, throat: DENIES: Tinnitus Respiratory: DENIES: Apneas Cardiovascular: DENIES: Chest pain Gastrointestinal: COMPLAINS OF: Abdominal pain, Nausea, Vomiting Genitourinary: DENIES: Urgency, Hematuria, Dysuria Musculoskeletal: DENIES: Neck pain Integumentary: COMPLAINS OF: Abnormal pigmentation, Pruritus, Rash Hematologic/lymphatic: DENIES: Bruising Immunologic/allergic: COMPLAINS OF: Eczema, DENIES: Urticaria Neurologic: DENIES: Abnormal gait, Headache Psychiatric: DENIES: Anxiety, Confusion Past Family Social History Allergies: Coded Allergies: Sulfa (Verified Allergy, Unknown, 06/13/17) Levaquin (Verified Adverse Reaction, Severe, Blurred Vision, 06/13/17) Uncoded Allergies: Flagyl oral (Adverse Reaction, Severe, Blurred Vision, 05/31/17) Visual disturbances and retention of urine. Past Medical History Psoriasis arthritis Ulcerative colitis Class C esophagitis Gastritis Past Surgical History None previous to today Reported Medications Prednisone 30 mg by mouth daily taper Active Ordered Medications Reviewed in EMR Family History Mother and father with no medical problems. Social History Denies tobacco, alcohol or IV drug use Physical Exam Vital Signs Vital Signs Date Time Temp Pulse Resp B/P Pulse Ox O2 Delivery O2 Flow Rate FiO2 06/13/17 21:17 98.1 114 20 100/57 100 Simple Mask 6 06/13/17 18:00 103 06/13/17 18:00 98.2 103 18 125/76 100 06/13/17 17:06 105 18 129/81 100 Room Air 06/13/17 16:34 112 18 132/84 97 Room Air 06/13/17 15:56 16 06/13/17 15:00 16 96 Room Air 06/13/17 14:50 97.6 124 18 109/77 96 Physical Exam GENERAL: -31year-old male, resting in bed in no acute distress SKIN: Warm and dry. No rash HEAD: Atraumatic. Normocephalic. EYES: Pupils equal and round about 2 mm bilaterally and reactive. No scleral icterus. No injection or drainage. ENT: No nasal bleeding or discharge. Mucous membranes pink and moist. NECK: Trachea midline. No JVD. CARDIOVASCULAR: Regular rate and rhythm. S1, S2. No S4 without murmur RESPIRATORY: Clear to auscultation. Breath sounds equal bilaterally. GASTROINTESTINAL: Abdomen soft, ostomy in right lower quadrant. YUNIOR in left lower quadrant. Midline incision is clean dry and intact covered with bandage MUSCULOSKELETAL: Extremities without significant peripheral edema. No obvious deformities. NEUROLOGICAL: Awake and alert to person only postanesthesia. No obvious cranial nerve deficits. Motor grossly within normal limits. Five out of 5 muscle strength in the arms and legs. Normal speech. Laboratory Laboratory Tests Test 06/13/17 06/13/17 14:55 21:23 White Blood Count 19.5 16.2 Red Blood Count 4.65 3.94 Hemoglobin 13.9 12.1 Hematocrit 42.4 35.9 Mean Corpuscular Volume 91.2 91.0 Mean Corpuscular Hemoglobin 29.9 30.7 Mean Corpuscular Hemoglobin 32.8 33.7 Concent Red Cell Distribution Width 12.2 13.3 Platelet Count 535 411 Mean Platelet Volume 7.1 7.2 Neutrophils (%) (Auto) 91.4 93.5 Lymphocytes (%) (Auto) 5.7 4.1 Monocytes (%) (Auto) 2.5 2.2 Eosinophils (%) (Auto) 0.1 0.1 Basophils (%) (Auto) 0.3 0.1 Neutrophils # (Auto) 17.8 15.2 Lymphocytes # (Auto) 1.1 0.7 Monocytes # (Auto) 0.5 0.4 Eosinophils # (Auto) 0.0 0.0 Basophils # (Auto) 0.1 0.0 CBC Comment DIFF FINAL DIFF FINAL Differential Comment Sodium Level 125 130 Potassium Level 5.4 5.3 Chloride Level 88 97 Carbon Dioxide Level 27.6 26.6 Anion Gap 9 6 Blood Urea Nitrogen 27 19 Creatinine 0.99 0.63 Estimat Glomerular Filtration 89 150 Rate Random Glucose 161 173 Lactic Acid Level 3.7 3.0 Calcium Level 8.4 6.6 Total Bilirubin 0.7 Aspartate Amino Transf 19 (AST/SGOT) Alanine Aminotransferase 117 (ALT/SGPT) Alkaline Phosphatase 121 Total Protein 7.7 4.5 Albumin 2.0 Lipase 111 Protein Corrected Calcium 7.9 Blood Type AB POSITIVE Antibody Screen NEGATIVE Blood Bank Comment Result Diagram: 06/13/17212206/13/172122 Imaging Last Impressions Abdomen X-Ray 06/13/17 1501 Signed Impressions: Service Date/Time: Tuesday, June 13, 2017 15:06 - CONCLUSION: Pneumoperitoneum characteristic of perforated viscus. 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 [place] 5/325 with every 4 hours when necessary pain CV: Severe sepsis secondary to perforation Lactic acidosis Patient is currently D5 normal saline 125 cc an hour Currently not requiring vasopressors and/or antihypertensives Serial lactates until cleared See ID for antibiotics Resp: Nasal cannula to maintain saturations greater than equal to 92% currently on room air Incentive spirometry while awake GI: Elevated ALT Ulcerative colitis diagnosed 05/23 History of Yersinia diarrhea Class C esophagitis Gastritis Postop day #0 exploratory laparotomy/subtotal colectomy with ileostomy/rigid sigmoidoscopy with right lower quadrant ostomy placement secondary to perforation Dr. Menendez EBL 100. Urine output 200. 2800 crystalloid. Currently nothing by mouth with NG tube to LIWS Pantoprazole for GI prophylaxis Ostomy cares Colorectal surgery/Dr. Menendez following : [place] catheter currently not indicated Endo: Sliding-scale insulin if indicated to maintain euglycemia Renal: Monitor urine output Accurate I's and O's Follow BMP in a.m. Heme: Leukocytosis Normocytic anemia Monitor CBC daily. Follow trends in a.m. No indications for transfusion of blood proximal at this time ID: Ancef 1 g IV every 6 hours 4 dosages per colorectal surgery Currently on Zosyn day #1. See Flagyl and cefepime previously MSK/rheum: Psoriasis arthritis Previously on Humira FEN: Hyperkalemia Hyponatremia Adjust IV fluids to D5 normal saline at 125 cc an hour. Follow up in a.m. electrolytes. Replace as clinically indicated Access - Utilize peripheral IV. Central line if indicated Prophylaxis - GI - pantoprazole - DVT - SCD/pharmacological prophylaxis with heparin subcutaneous 5000 units every 12 Level III admission Code Status Full code Discussed Condition With Patient. CARE PROVIDER. Care plan discussed and all questions answered. Problem Qualifiers (1) Anemia: Qualified Code: D64.9 - Anemia, unspecified type (2) Leukocytosis: Qualified Code: D72.829 - Leukocytosis, unspecified type (3) Ulcerative colitis: Qualified Code: K51.919 - Ulcerative colitis with complication, unspecified location Rainer Land MD Jun 13, 2017 22:38
[2017-06-13] MEDS: MORPHINE SULFATE 30 MG/30 ML PCA IV SCH (22:53)
[2017-06-13] MEDS: DEXT 5%-NACL 0.9% 1000 ML INJ 1,000 ML IV SCH (23:00)
[2017-06-13] MEDS: HYDROCORTISONE SOD SUCCINATE 100 MG VIAL IV PUSH SCH ×2 (23:15→23:16)
[2017-06-14] VITALS (16 sets, daily range): BP systolic 114–133; BP diastolic 75–86; PULSE 68–124; RESP 13–22; TEMP 97.8–99.4; O2SAT 97–100
[2017-06-14] MEDS: PIPERACIL-TAZO 3.375 GM PREMIX 50 ML IV SCH ×4 (02:18→20:07)
--- NOTE | 2017-06-14 02:21 | HHI.CCPN ---
Subjective Remarks/Hospital Course 31-year-old male. Date of admission 06/13/2017. Past medical history includes recent diagnosis of ulcerative colitis 05/23 on chronic prednisone taper. The patient also has a history of psoriasis and was on Humira for approximate 7 years. In office since 11/23. diagnosed in [place] with Yersinia diarrhea was placed on Levaquin and Flagyl at that time. However, the patient continued having symptoms and was seen in the emergency department in May. The patient was subsequently admitted after he had a CT the abdomen and pelvis which revealed diffuse enterocolitis in 05/23. [place]. \ Dr. Romo for EGD/ colonoscopy which will class C esophagitis, gastritis and ulcerative colitis. The patient was placed on Asacol and prednisone in the emergency department was subsequent discharged home. He is currently on a prednisone taper down to 30 mg daily recently, noted to have has increasing abdominal pain and distention with decreased oral intake. The patient states he has persistent nausea, postprandial vomiting, and singultus. The patient estimates a 25 pound weight loss from 1 month ago. The patient just went from prednisone 40 mg per day to prednisone 30 mg today. Laboratories revealed his lactic acidosis of 3.7, elevated white blood cell count and elevated potassium and ALT. CT abdomen/os revealed pneumoperitoneum. Dr. Mcneill/colo rectal surgery was consulted. Today, patient asked for treatment laparotomy, subtotal colectomy with ileostomy and rigid sigmoidoscopy. Right lower quadrant os ostomy. Left YUNIOR placement. EBL 100. 200 cc urine output. 2800 cc crystalloid. No complications. Extubated in PACU. 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 Currently not on MOTOR REBUILDER. Afebrile. Abdomen benign. No ostomy output yet. Objective Vital Signs Date Time Temp Pulse Resp B/P Pulse Ox O2 Delivery O2 Flow Rate FiO2 06/14/17 00:00 110 06/14/17 00:00 98.9 17 120/78 100 06/13/17 22:30 Room Air 06/13/17 22:15 4 Intake and Output 06/13/17 06/13/17 06/14/17 08:00 16:00 00:00 Intake Total 4900 ml Output Total 420 ml Balance 4480 ml Result Diagram: 06/13/17212206/13/172122 Imaging Last Impressions Abdomen X-Ray 06/13/17 1501 Signed Impressions: Service Date/Time: Tuesday, June 13, 2017 15:06 - CONCLUSION: Pneumoperitoneum characteristic of perforated viscus. Juan Johnson MD Objective Remarks GENERAL: -31year-old male, resting in bed in no acute distress SKIN: Warm and dry. No rash HEAD: Atraumatic. Normocephalic. EYES: Pupils equal and round about 2 mm bilaterally and reactive. No scleral icterus. No injection or drainage. ENT: No nasal bleeding or discharge. Mucous membranes pink and moist. NECK: Trachea midline. No JVD. CARDIOVASCULAR: Regular rate and rhythm. S1, S2. No S4 without murmur RESPIRATORY: Clear to auscultation. Breath sounds equal bilaterally. GASTROINTESTINAL: Abdomen soft, ostomy in right lower quadrant. YUNIOR in left lower quadrant. Midline incision is clean dry and intact covered with bandage MUSCULOSKELETAL: Extremities without significant peripheral edema. No obvious deformities. NEUROLOGICAL: Awake and alert to person only postanesthesia. No obvious cranial nerve deficits. Motor grossly within normal limits. Five out of 5 muscle strength in the arms and legs. Normal speech. 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 A.m. pending See ID for antibiotics Resp: Nasal cannula to maintain saturations greater than equal to 92% currently on room air Incentive spirometry while awake GI: Elevated ALT Ulcerative colitis diagnosed 05/23 History of Yersinia diarrhea Class C esophagitis Gastritis Postop day #1 exploratory laparotomy/subtotal colectomy with ileostomy/rigid sigmoidoscopy with right lower quadrant ostomy placement secondary to perforation Dr. Menendez EBL 100. Urine output 200. 2800 crystalloid. Currently nothing by mouth with NG tube to LIWS Pantoprazole for GI prophylaxis Ostomy cares Colorectal surgery/Dr. Menendez following : Sk[place]gs catheter currently not indicated Endo: Sliding-scale insulin if indicated to maintain euglycemia Renal: Monitor urine output Accurate I's and O's Follow BMP in a.m. Heme: Leukocytosis Normocytic anemia Monitor CBC daily. Follow trends in a.m. No indications for transfusion of blood proximal at this time ID: Ancef 1 g IV every 6 hours 4 dosages per colorectal surgery Currently on Zosyn day #2. 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 Follow up in a.m. electrolytes. Replace as clinically indicated Access - Utilize peripheral IV. Central line if indicated Prophylaxis - GI - pantoprazole - DVT - SCD/pharmacological prophylaxis with heparin subcutaneous 5000 units every 12 Level III follow-up Rainer Land MD Jun 14, 2017 02:21
[2017-06-14 03:57] LABS: AUTOMATED NEUTROPHIL # 20.5 TH/MM3 (1.8-7.7); BASOPHIL % 0.1 % (0.0-2.0); HEMATOCRIT 35.3 % (39.0-51.0); HEMO FLAGS DIFF FINAL; LYMPH % 2.6 % (9.0-44.0); LYMPHOCYTE # 0.6 TH/MM3 (1.0-4.8); MEAN CELL VOLUME 89.8 FL (80.0-100.0); MEAN CORPUSCULAR HEMOGLOBIN 30.9 PG (27.0-34.0); MEAN CORPUSCULAR HGB CONC 34.4 % (32.0-36.0); MONO % 2.2 % (0.0-8.0); NEUT % 95.1 % (16.0-70.0); PLATELET COUNT 357 TH/MM3 (150-450); RED BLOOD COUNT 3.94 MIL/MM3 (4.50-5.90); RED CELL DISTRIBUTION WIDTH 12.9 % (11.6-17.2); WHITE BLOOD COUNT 21.6 TH/MM3 (4.0-11.0)
[2017-06-14 04:08] LABS: APTT (PATIENT) 28.9 SEC (24.3-30.1); INTERNATIONAL NORMALIZED RATIO 1.3 RATIO
[2017-06-14 04:24] LABS: BICARBONATE 26.7 MEQ/L (21.0-32.0); MAGNESIUM 2.2 MG/DL (1.5-2.5); POTASSIUM 4.7 MEQ/L (3.5-5.1)
[2017-06-14 04:27] LABS: CALCIUM-PROTEIN CORRECTED 8.8 MG/DL (8.5-10.1); INDIRECT BILIRUBIN 0.3 MG/DL (0.0-0.8); TOTAL BILIRUBIN ADULT 0.4 MG/DL (0.2-1.0)
[2017-06-14] MEDS: HYDROCORTISONE SOD SUCCINATE 100 MG VIAL IV PUSH SCH ×6 (04:50→22:00)
[2017-06-14] MEDS: PCA - TOTAL MG MORPHINE DELIVERED PER SHIFT SCH ×3 (04:59→22:00)
[2017-06-14] MEDS ORDERED: SODIUM PHOSPHATE INJ 15 MMOL in SODIUM CHLORIDE 0.9% INJ 150 ML IV ONE (06:00)
[2017-06-14] MEDS: PANTOPRAZOLE SODIUM 40 MG VIAL IVP SCH (08:30)
[2017-06-14] MEDS: DEXT 5%-NACL 0.9% 1000 ML INJ 1,000 ML IV SCH ×3 (08:30→22:08)
[2017-06-14] MEDS: SODIUM CHLORIDE 0.9% FLUSH 5 ML FLUSH IVF SCH ×2 (08:31→20:08)
--- NOTE | 2017-06-14 10:00 | HHI.PR ---
Subjective Remarks POD#1 s/p ex lap, subtotal colectomy, ileostomy comfortable, adequate pain medication Objective Vital Signs Date Time Temp Pulse Resp B/P Pulse Ox O2 Delivery O2 Flow Rate FiO2 06/14/17 06:00 106 06/14/17 05:35 98.8 102 15 119/80 100 06/14/17 04:59 12 06/14/17 04:00 108 06/14/17 03:17 98 06/14/17 02:00 110 06/14/17 01:35 98.8 124 20 114/77 100 06/14/17 00:00 110 06/14/17 00:00 98.9 120 17 120/78 100 06/13/17 23:28 99 06/13/17 22:53 20 06/13/17 22:30 109 06/13/17 22:30 98 Room Air 06/13/17 22:15 96 17 122/70 100 Nasal Cannula 4 06/13/17 21:45 111 22 114/55 94 Nasal Cannula 4 06/13/17 21:30 140 19 131/61 100 Nasal Cannula 4 06/13/17 21:21 114 19 103/55 100 Nasal Cannula 4 06/13/17 21:17 98.1 114 20 100/57 100 Simple Mask 6 06/13/17 18:00 103 06/13/17 18:00 98.2 103 18 125/76 100 06/13/17 17:06 105 18 129/81 100 Room Air 06/13/17 16:34 112 18 132/84 97 Room Air 06/13/17 15:56 16 06/13/17 15:00 16 96 Room Air 06/13/17 14:50 97.6 124 18 109/77 96 I/O 06/13/17 06/13/17 06/13/17 06/14/17 06/14/17 06/14/17 07:00 15:00 23:00 07:00 15:00 23:00 Intake Total 4900 ml 1019 ml Output Total 420 ml 580 ml Balance 4480 ml 439 ml Intake IV Total 2100 ml 1019 ml Other 2800 ml Output Urine Total 200 ml 400 ml Drainage Total 120 ml 180 ml Estimated Blood Loss 100 ml Result Diagram: 06/14/17 0345 06/14/17 0345 Objective Remarks Alert Abdomen soft, nondistended, tender Dressing c/d/i YUNIOR serous ileostomy pink, edematous Assessment and Plan Assessment and Plan NEURO: - alert, comfortable CV: stable PULM: stable GI: Continue NGT, will likely have ileus for 2-3 days Continue stress dose steroids, wean in 2-3 days Expect some blood from rectum, will start mesalamine suppositories in 4-5 days FEN: Albumin 1.1, may benefit from PPN Na still low but improving. Continue D5NS ID: Continue antibiotics Overall, doing well. Mobilize as possible. Kathy Menendez MD Jun 14, 2017 10:00
--- NOTE | 2017-06-14 10:37 | MB ---
cc: LELE ROTH MD, PETER M.D. DATE OF CONSULTATION 06/13/2017 CHIEF COMPLAINT Perforated viscus HISTORY OF PRESENT ILLNESS The patient is a 31-year-old white male who presented to the emergency department today with increasing abdominal pain and distension. He was diagnosed in May with ulcerative colitis, after a three to four week history of bloody diarrhea and abdominal pain. He underwent colonoscopy during that admission which showed biopsies consistent with ulcerative colitis and he was treated with Asacol and prednisone in the emergency department. He was discharged home with plans for weaning off his prednisone. He states he actually had been getting gradually and slowly better, and when he saw Dr. Melendrez approximately 10 days prior to admission, he was taken off of his Asacol. He is currently on 30 mg a day of prednisone. He then began having more pain over the last four to five days which has been increasing and he began having distension as well. He has had nausea, but no vomiting and has had some fevers. He also reports a 25 pound weight loss over the last three to four weeks. Of note, the patient had been treated with Humira for about seven years for psoriasis, and this was stopped in November due to lack of insurance coverage. PAST MEDICAL HISTORY 1. Psoriasis with a psoriatic arthritis. 2. Chronic ulcerative colitis. PAST SURGICAL HISTORY Lipoma resection. ALLERGIES 1. LEVAQUIN possible reaction 2. FLAGYL MEDICATIONS Prednisone 30 mg daily SOCIAL HISTORY Tobacco, no. Alcohol, occasional. REVIEW OF SYSTEMS Negative for chest pain, shortness of breath, difficulty with mood or mentation, difficulty with ambulation, change in vision or hearing. PHYSICAL EXAM Physical reveals a thin male who appears uncomfortable. NEUROLOGIC: Grossly intact. SKIN: Warm and dry. HEAD: Normocephalic, atraumatic. CARDIOVASCULAR: Regular rate, slightly tachy. RESPIRATORY: Breathing is symmetric bilaterally and nonlabored. ABDOMEN: Distended. The patient is diffusely tender to light palpation and firm. EXTREMITIES: Reveal no edema. LABORATORY DATA Laboratory work revealed a white count of 19.5, hemoglobin of 13.9, platelets of 535. Chemistry sodium 125, potassium 5.4, chloride 88, bicarb is 27.6, BUN is 27, creatinine 0.99, glucose is 161. Lactic acid is 3.7. His ALT is 117. His alk phos is 121. His albumin is 2.0. X-ray shows a large amount of free air in the peritoneal cavity with no intestinal distension. IMPRESSION Perforated viscus, most likely secondary to chronic ulcerative colitis. PLAN In discussion with the patient and his parents, his was not here with him as yet, he clearly has a perforated viscus, most likely his colon. I will take him in for exploration emergently. At that surgery the very least that will happen is I will go upstream of the perforation and give him a temporary diversion. More likely, we will do a resection. We talked about the fact that I would like to avoid dissecting down into the rectal area if the rectum is not to diseased, so that we can resect that in the future when his his inflammation is under better control. However, depending on the status of the bowel, that may not be possible and we may need to do a low rectal dissection. The risks and benefits of surgery were discussed with the patient and his parents including, but not limited to , heart attack, stroke, pulmonary embolism, blood clot, infection, bleeding, injury to other organs ,including injury to the nerves that supply sexual functioning including orgasm, erection and ejaculation and the possibility that he would no longer be able to have children. In addition, we talked about the risks of hernia or scar tissue causing a bowel obstruction in the future. They understand and wish to proceed. MD DIANNE Alanis/HARJINDER /6:35 PM /10:20 AM JARON
--- NOTE | 2017-06-14 13:21 | PD.WCN.NOT ---
Wound Consult Description: Consult for NEW OSTOMY TEACHING per Dr Menendez Communicated with: Patient Recommendation: Write down any questions that may come up. Additional Information: Patient seen on [facility] for Ostomy teaching and assessment of stoma. Ostomy Type: Ileostomy Surgeon: Kathy Menendez MD Date of Surgery: Jun 13, 2017 Educated patient on: Fluid intake. Signs and symptoms of dehydration. Normal stoma appearance and function. Intestinal system and functions. Appliances and products were discussed. When and how to empty effluent from pouch. When and how to remove and change barrier/appliance. Peristomal skin care. Foods that are easily digested compared to foods that are harder for small bowel to digest. Lifestyles and hobbies. Additional information Patient seen on [facility], post op day #1, for ileostomy teaching and assessment. Stoma is noted on the mid right abdomen with foam tape noted to mid abdomen. 2 piece appliance intact without leaks noted. Stoma is round, pink, edematous, shiny, moist, moderately protruding, with ~50ml yellow clear liquid effluent noted to pouch. Approximately 45 minutes was spent discussing the ileostomy, answering any questions, and making plans for more teaching sessions this week with . Appointment was made tomorrow for 10-11 o'clock so that the patients could be in attendance. Haven Askew [facility] Jun 14, 2017 13:21
[2017-06-14] MEDS ORDERED: SODIUM CHLORIDE 0.9% FLUSH 10 ML FLUSH IV FLUSH PRN (15:45)
--- NOTE | 2017-06-14 15:49 | EKG ---
Date Performed: 06/13/2017 Time Performed: 15:12:32 PTAGE: 31 years EKG: SINUS TACHYCARDIA ST ELEVATION, PROBABLY EARLY REPOLARIZATION TALL T-WAVES, SUGGESTS HYPERK ALEMIA ABNORMAL ECG INTERPRETATION BASED ON A DEFAULT AGE OF 41 YEARS NO PREVIOUS TRACING DOCTOR: Jose Wang Interpretating Date/Time 06/14/2017 15:43:16
--- NOTE | 2017-06-14 17:58 | RADRPT ---
EXAM DATE/TIME: 06/14/2017 16:49 [place] COMPARISON: No previous studies available for comparison. INDICATIONS : PICC line right arm. MEDICAL HISTORY : None. SURGICAL HISTORY : None. ENCOUNTER: Subsequent ACUITY: 2 days PAIN SCORE: 0/10 LOCATION: Bilateral chest FINDINGS: Nasogastric tube descends to the stomach. A right arm PICC line extends to the atriocaval junction le michelle. There is no evidence of complication of placement. Lungs are clear. No pleural effusion noted. C ardiac contours are satisfactory. CONCLUSION: Satisfactory PICC line position Luis Manuel Hoyos MD on June 14, 2017 at 17:56 Board Certified Radiologist. This report was verified electronically.
[2017-06-14] MEDS: ARTIFICIAL TEARS OPTH SOLN 15 ML BTL LEFT EYE PRN (18:15)
[2017-06-14] MEDS: HEPARIN SODIUM - SQ 10,000 UNITS/ML VIAL SQ SCH (20:07)
[2017-06-14] MEDS: FOLIC ACID IV-CENTRAL SCH ×4 (20:08)
[2017-06-14] MEDS: AMINO ACID IV-CENTRAL SCH ×4 (20:08)
[2017-06-14] MEDS: MULTIVITAMIN IV-CENTRAL SCH ×4 (20:08)
[2017-06-14] MEDS: FAMOTIDINE IV-CENTRAL SCH ×4 (20:08)
[2017-06-14] MEDS: [UNRECOGNIZED DRUG - OTHER] IV-CENTRAL SCH ×4 (20:08)
[2017-06-14] MEDS: FAT EMULSION 20% INJ 250 ML (@10 mls/hr) IV-CENTRAL SCH (20:08)
[2017-06-15] VITALS (15 sets, daily range): BP systolic 116–131; BP diastolic 60–77; PULSE 56–81; RESP 13–25; TEMP 96.6–98.8; O2SAT 98–100
[2017-06-15] MEDS: PIPERACIL-TAZO 3.375 GM PREMIX 50 ML IV SCH ×4 (02:41→20:15)
[2017-06-15 03:25] LABS: AUTOMATED NEUTROPHIL # 11.8 TH/MM3 (1.8-7.7); BASOPHIL % 0.1 % (0.0-2.0); HEMATOCRIT 23.3 % (39.0-51.0); HEMO FLAGS DIFF FINAL; LYMPH % 5.1 % (9.0-44.0); LYMPHOCYTE # 0.7 TH/MM3 (1.0-4.8); MEAN CELL VOLUME 89.9 FL (80.0-100.0); MEAN CORPUSCULAR HEMOGLOBIN 31.2 PG (27.0-34.0); MEAN CORPUSCULAR HGB CONC 34.7 % (32.0-36.0); MONO % 2.5 % (0.0-8.0); NEUT % 92.3 % (16.0-70.0); PLATELET COUNT 222 TH/MM3 (150-450); RED BLOOD COUNT 2.59 MIL/MM3 (4.50-5.90); RED CELL DISTRIBUTION WIDTH 12.9 % (11.6-17.2); WHITE BLOOD COUNT 12.8 TH/MM3 (4.0-11.0)
[2017-06-15 03:55] LABS: BICARBONATE 29.5 MEQ/L (21.0-32.0); MAGNESIUM 2.3 MG/DL (1.5-2.5); POTASSIUM 3.7 MEQ/L (3.5-5.1)
[2017-06-15] MEDS: PCA - TOTAL MG MORPHINE DELIVERED PER SHIFT SCH ×3 (05:34→22:00)
[2017-06-15] MEDS: HYDROCORTISONE SOD SUCCINATE 100 MG VIAL IV PUSH SCH ×6 (05:34→22:00)
--- NOTE | 2017-06-15 07:28 | HHI.CCPN ---
Subjective Remarks/Hospital Course 31-year-old male. Date of admission 06/13/2017. Past medical history includes recent diagnosis of ulcerative colitis 05/23 on chronic prednisone taper. The patient also has a history of psoriasis and was on Humira for approximate 7 years. In office since 11/23. diagnosed in [place] with Yersinia diarrhea was placed on Levaquin and Flagyl at that time. However, the patient continued having symptoms and was seen in the emergency department in May. The patient was subsequently admitted after he had a CT the abdomen and pelvis which revealed diffuse enterocolitis in 05/23. [place]. \ Dr. Romo for EGD/ colonoscopy which will class C esophagitis, gastritis and ulcerative colitis. The patient was placed on Asacol and prednisone in the emergency department was subsequent discharged home. He is currently on a prednisone taper down to 30 mg daily recently, noted to have has increasing abdominal pain and distention with decreased oral intake. The patient states he has persistent nausea, postprandial vomiting, and singultus. The patient estimates a 25 pound weight loss from 1 month ago. The patient just went from prednisone 40 mg per day to prednisone 30 mg today. Laboratories revealed his lactic acidosis of 3.7, elevated white blood cell count and elevated potassium and ALT. CT abdomen/os revealed pneumoperitoneum. Dr. Mcneill/colo rectal surgery was consulted. Today, patient asked for treatment laparotomy, subtotal colectomy with ileostomy and rigid sigmoidoscopy. Right lower quadrant os ostomy. Left YUNIOR placement. EBL 100. 200 cc urine output. 2800 cc crystalloid. No complications. Extubated in PACU. Currently on morphine SEAFOOD FISHERMAN. Subjective 06/14: Resting in bed in no acute distress. Currently not on SEAFOOD FISHERMAN. Afebrile. Abdomen benign. No ostomy output yet. 06/15: Well perfused. Fluid balance about right, urine output excellent. Alert, breathing comfortably. Objective Vital Signs Date Time Temp Pulse Resp B/P Pulse Ox O2 Delivery O2 Flow Rate FiO2 06/15/17 06:00 58 06/15/17 05:34 21 06/15/17 04:00 98.0 128/74 100 06/14/17 19:00 Room Air 06/13/17 22:15 4 Intake and Output 06/14/17 06/14/17 06/15/17 08:00 16:00 00:00 Intake Total 1019 ml 660 ml 1095 ml Output Total 580 ml 1235 ml 250 ml Balance 439 ml -575 ml 845 ml Result Diagram: 06/15/17 0315 06/15/17 0315 Imaging Last Impressions Abdomen X-Ray 06/13/17 1501 Signed Impressions: Service Date/Time: Tuesday, June 13, 2017 15:06 - CONCLUSION: Pneumoperitoneum characteristic of perforated viscus. Juan Johnson MD Objective Remarks GENERAL: -31year-old male, comfortable. SKIN: Warm and dry. No rash HEAD: Atraumatic. Normocephalic. EYES:. No scleral icterus. No injection or drainage. ENT: No nasal bleeding or discharge. Mucous membranes pink and moist. NECK: Trachea midline. No stridor. CARDIOVASCULAR: Regular rate and rhythm. S1, S2. No m,r. RESPIRATORY: Clear to auscultation. Breath sounds equal bilaterally. GASTROINTESTINAL: Abdomen soft, ostomy in right lower quadrant. YUNIOR in left lower quadrant. Midline incision is clean dry and intact. MUSCULOSKELETAL: Extremities without significant peripheral edema. No obvious deformities. Well perfused. NEUROLOGICAL: Awake and alert, O X 3. No obvious cranial nerve deficits. Motor grossly within normal limits. Normal speech. A/P Assessment and Plan Neuro/Psych: Postoperative pain management Currently on morphine SEAFOOD FISHERMAN for pain management [place] 5/325 with every 4 hours when necessary pain CV: Severe sepsis secondary to perforation Lactic acidosis Patient is currently D5 normal saline 125 cc an hour Currently not requiring vasopressors and/or antihypertensives. See ID for antibiotics Resp: Nasal cannula to maintain saturations greater than equal to 92% currently on room air Incentive spirometry while awake GI: Elevated ALT Ulcerative colitis diagnosed 05/23 History of Yersinia diarrhea Class C esophagitis Gastritis Postop day #2 exploratory laparotomy/subtotal colectomy with ileostomy/rigid sigmoidoscopy with right lower quadrant ostomy placement secondary to perforation Dr. Menendez EBL 100. Urine output 200. 2800 crystalloid. Currently nothing by mouth. Pantoprazole for GI prophylaxis Ostomy cares Colorectal surgery/Dr. Menendez following : Skaggs catheter currently not indicated Endo: Sliding-scale insulin if indicated to maintain euglycemia Renal: Monitor urine output Accurate I's and O's Follow BMP in a.m. Heme: Leukocytosis Normocytic anemia Monitor CBC daily. Follow trends in a.m. No indications for transfusion of blood proximal at this time ID: Ancef 1 g IV every 6 hours 4 dosages per colorectal surgery Currently on Zosyn day #3. 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 Access - Utilize peripheral IV. Central line if indicated Prophylaxis - GI - pantoprazole - DVT - SCD/pharmacological prophylaxis with heparin subcutaneous 5000 units every 12 Overall impression: Good progress and uneventful course s/p urgent colectomy. Will transfer to hospitalist group. Patrick Hanna MD Jun 15, 2017 07:28
[2017-06-15] MEDS: HEPARIN SODIUM - SQ 10,000 UNITS/ML VIAL SQ SCH ×2 (07:45→20:15)
[2017-06-15] MEDS: DEXT 5%-NACL 0.9% 1000 ML INJ 1,000 ML IV SCH (07:45)
[2017-06-15] MEDS: PANTOPRAZOLE SODIUM 40 MG VIAL IVP SCH (08:43)
[2017-06-15] MEDS: SODIUM CHLORIDE 0.9% FLUSH 10 ML FLUSH IV FLUSH SCH (08:43)
[2017-06-15] MEDS: SODIUM CHLORIDE 0.9% FLUSH 5 ML FLUSH IVF SCH ×2 (08:43→20:15)
[2017-06-15] MEDS: SODIUM CHLOR 0.9% 1000 ML INJ 1,000 ML IV SCH (09:03)
[2017-06-15] MEDS ORDERED: POTASSIUM PHOSPHATE INJ 30 MMOL in SODIUM CHLOR 0.9% 250 ML INJ 250 ML IV ONE (11:00)
--- NOTE | 2017-06-15 12:40 | PD.WCN.NOT ---
Wound Consult Description: Consult for NEW OSTOMY TEACHING per Dr Menendez Communicated with: Patient Patient at bedside Recommendation: Practice opening and closing pouch provided in the kit Practice attaching/detaching the barrier to/from the pouch Apply barrier to practice stoma provided in kit Read the ileostomy booklet provided Write down any questions you may have Additional Information: Patient seen on [address] [place] this am from 10am-11:30am for ileostomy teaching with at bedside. Ostomy Type: Ileostomy Surgeon: Kathy Menendez MD Date of Surgery: Jun 13, 2017 Complete: Starter kit, Education materials Educated patient on: Clothing options available for patient, ie swimwear. Discussion about pants and shorts with belts and where these will be positioned on patients waist. When and how often to change ostomy appliance. Skin care around the stoma. Showering with an ileostomy. Stoma size and shape with stoma shrinking over the next 6-8 weeks. The function of the stoma. The appearance of the stoma. Educational sites available via web. Additional information Patient seen with patient at bedside on [place] for ileostomy teaching and education. Stoma is located on the right lower abdomen measuring 1 & 1/2". Appliances ordered in 2&1/2". Ileostomy is round, pink, moist, budded, moderately protruding, lumen noted @4 o'clock with minimal green soft effluent present, sanguinous mucus, and yellow thin liquid noted draining into pouch. Mucocutaneous junction with intact sutures. Patient has 2 piece appliance intact with no leaks noted. Midline abdomen noted with dermabond within surgical incision line with scant brown drainage noted just under umbilicus. Patient is NPO except ice chips, with NG tube clamped. Patient had many questions that were answered. Ileostomy booklet and kit with supplies given for information and practice. Patient will be seen tomorrow for further education and possible appliance change. Haven Askew [facility] Jun 15, 2017 12:40
[2017-06-15] MEDS: MORPHINE SULFATE 30 MG/30 ML PCA IV SCH (18:14)
--- NOTE | 2017-06-15 19:30 | MP ---
cc: LELE MENENDEZ M.D. ALEKSANDAR LEMUS M.D. DATE OF SURGERY: 05/11/2017 PREOPERATIVE DIAGNOSIS: 1. Chronic ulcerative colitis. 2. Perforated viscus. POSTOPERATIVE DIAGNOSIS 1. Chronic ulcerative colitis, virulent. 2. Perforated transverse colon. PROCEDURE: 1. Exploratory laparotomy 2. Subtotal colectomy 3. Ileostomy 4. Rigid sigmoidoscopy. SURGEON Lele Menendez MD. ANESTHESIA General per ET tube ESTIMATED BLOOD LOSS Operative blood loss was approximately 150 cc. However, the patient was noted to have at least 250 cc of blood within the colon lumen. OPERATIVE FINDINGS The patient had a moderate amount of free air. He had a perforated mid transverse colon which had been mostly walled off. He had some inflammatory peel in the mid abdomen but really had not too much free succus or bowel contents in the periphery of the peritoneal cavity. The small bowel was healthy, although just mildly dilated. The colon was thinned, dilated, and injected, and after removal and opening of the specimen was noted to have just raw bleeding surfaces. On rigid sigmoidoscopy the rectum had blood but the surfaces were not as severely abnormal as the remainder of the colon. OPERATIVE COURSE The patient was brought to the operating room placed in the supine position. After induction of general anesthesia the patient was placed in Holden stirrups and all bony prominences were carefully padded. The skin of the anterior abdominal wall, as well as the perineal area, was then prepped and draped in the usual sterile fashion. Rigid sigmoidoscopy was then performed with notation of quite a bit of blood in the rectum. The distal rectum had edema and erythema but no cobblestoning or other measures or severe markers of severe perforating colitis. A vertical midline incision was then made, beginning at the xyphoid and proceeding distally to the symphysis pubis, deviating to the left of the umbilicus. Using electrocautery, dissection was carried down to the fascia of the anterior abdominal wall which was split the length of the skin incision. There was immediately noted to be an aggressive and moderate amount of free air and the patient was noted to have a very dilated transverse colon. The stomach was also massively dilated. The small bowel was gently and carefully retracted, feeling around until we could easily find the area of stool leakage in the mid abdomen. The pelvis had some purulence in it but no real peel. Most of the peel was in the distal small bowel where it was plastered up and kind of walling off the rent in the transverse colon. The omentum was extremely inflamed and indurated up against the edge of the transverse colon. After evaluation of the rectum, I elected to proceed with subtotal colectomy, leaving the distal rectum in place to avoid dissection in the pelvis during this severe inflammatory condition. Beginning on the right side, the cecum was grasped and gently retracted superiorly. The peritoneum was opened and dissection continued in this plane, gently freeing up the transverse colon and the ascending colon from the posterior peritoneum until the duodenum was clearly visualized and carefully dissected away from the mesocolon. Dissection continued up and around the hepatic flexure. The bowel at this level was all severely dilated and thinned and injected, appearing consistent with chronic severe inflammation. Dissection continued in this plane. Multiple attempts were made to enter the lesser sac from this direction without significant success but we were able to free the bowel from its attachments from the cecum, up and around to the mid transverse colon. The omentum was then gently dissected free from the free surface of the transverse colon, eventually being able to enter the lesser sac and dissect the omentum from the edge of the colon up to and around the splenic flexure. At this point the sigmoid colon was retracted medially and the lateral peritoneal attachments of the sigmoid colon were dissected free until the left ureter was clearly identified and swept away from the specimen. Dissection continued up the descending colon mesentery, freeing the descending colon mesentery from the underlying left kidney. This dissection continued up and around the splenic flexure where the colon was quite adherent to the tail of the pancreas but we did eventually dissect this free, eventually though meeting our previous dissection. At this point we had free mobility of the colon from the cecum down to the midsigmoid. A site was chosen for division of the rectum, down on the mid rectum where I felt I could dissect it free without entering the posterior rectal space. A site was chosen for division of the bowel. The bowel was cleared of its mesentery at this level and a TX60 staple, green load, was placed across the bowel at this level. The proximal bowel was occluded with a Basilio clamp and the bowel was amputated. The mesentery was then serially divided beginning at the proximal rectum and staying close to the surface of the bowel until we got well up out of the pelvis and up to the left colic vessels. This was done in a serial fashion, using 0 Vicryl ties. At this point we proceeded with a more traditional resection. We divided and ligated the left colic vessels, the middle colic vessels and the ileocolic vessels with 0 Vicryl ties. A site was chosen for division of the terminal ileum, just proximal to the ileocecal valve. The mesentery was serially divided and ligated with 0 Vicryl ties, and a MAYELIN stapler, blue load, was placed across the bowel at this level. This allowed full mobility of the specimen where it was taken to the back table, later opened, and the above findings were noted. We did elect to put a repeat stapler on the rectum as we had cut it a little raggedly and the surface was bleeding. Dissection beds were examined and hemostasis was obtained with electrocautery. The peritoneal cavity was copiously irrigated with warm normal saline and all cavities and pockets were rinsed out well. The small bowel was again examined with no sign of any significant abnormality with the exception of some mild peel in the midportion. A site was then chosen for the ostomy, being located one third away for the umbilicus to the right anterior superior iliac spine. A 1-1/2 cm ellipse of skin was removed sharply. Using electrocautery, the preperitoneal fat was removed down to the level of the fascia. A 1.3 cm vertical midline incision was made in the fascia and the fibers of the rectus muscles were split. The posterior fascia was opened the length of the anterior incision and the fascial aperture was widened until it snugly allowed two fingers. The distal stapled end of the ileum was then grasped and gently pulled up and out through the stomal aperture and lay in a nice orientation without tension. The small bowel was prolapsed back into the peritoneal cavity. A YUNIOR was placed through a stab incision in the left lower quadrant down into the pelvis. The fascia of the anterior abdominal wall was closed in a running fashion, using looped #1 PDS. The wound was copiously irrigated with warm normal saline and the skin was closed in a running subcuticular fashion using 3-0 Vicryl. The drain stitch was secured using 3-0 nylon and the stoma was matured in a Pallavi fashion using 3-0 Vicryl. Sterile dressing and a stomal appliance was then applied. All sponge, needle and sponge counts were correct and the patient was returned to the post anesthesia care unit in stable condition. MD DIANNE Alanis/ENOC /9:35 PM /6:17 PM JARON
[2017-06-15] MEDS: FOLIC ACID IV-CENTRAL SCH ×4 (19:48)
[2017-06-15] MEDS: FAT EMULSION 20% INJ 250 ML (@10 mls/hr) IV-CENTRAL SCH (19:48)
[2017-06-15] MEDS: AMINO ACID IV-CENTRAL SCH ×4 (19:48)
[2017-06-15] MEDS: MULTIVITAMIN IV-CENTRAL SCH ×4 (19:48)
[2017-06-15] MEDS: FAMOTIDINE IV-CENTRAL SCH ×4 (19:48)
[2017-06-15] MEDS: [UNRECOGNIZED DRUG - OTHER] IV-CENTRAL SCH ×4 (19:48)
[2017-06-16] VITALS (12 sets, daily range): BP systolic 105–141; BP diastolic 56–75; PULSE 55–90; RESP 14–22; TEMP 97.5–98.9; O2SAT 97–100
[2017-06-16] MEDS: PIPERACIL-TAZO 3.375 GM PREMIX 50 ML IV SCH ×4 (02:00→19:47)
[2017-06-16] MEDS: HYDROCORTISONE SOD SUCCINATE 100 MG VIAL IV PUSH SCH ×3 (03:06→19:47)
[2017-06-16 04:23] LABS: BASOPHIL % 0.2 % (0.0-2.0); EOSINOPHIL % 0.1 % (0.0-4.0); HEMATOCRIT 22.1 % (39.0-51.0); LYMPH % 6.6 % (9.0-44.0); LYMPHOCYTE # 0.7 TH/MM3 (1.0-4.8); MEAN CELL VOLUME 90.4 FL (80.0-100.0); MEAN CORPUSCULAR HEMOGLOBIN 30.7 PG (27.0-34.0); MONO % 4.6 % (0.0-8.0); NEUT % 88.5 % (16.0-70.0); PLATELET COUNT 198 TH/MM3 (150-450); RED BLOOD COUNT 2.44 MIL/MM3 (4.50-5.90); RED CELL DISTRIBUTION WIDTH 12.5 % (11.6-17.2); WHITE BLOOD COUNT 10.1 TH/MM3 (4.0-11.0)
[2017-06-16 04:24] LABS: HEMO FLAGS AUTO DIFF
[2017-06-16 04:53] LABS: BICARBONATE 34.3 MEQ/L (21.0-32.0)
[2017-06-16 05:06] LABS: CALCIUM-PROTEIN CORRECTED 8.4 MG/DL (8.5-10.1)
[2017-06-16] MEDS: POTASSIUM CHLOR 40 MEQ PREMIX 100 ML IV PRN (05:25)
[2017-06-16] MEDS: PCA - TOTAL MG MORPHINE DELIVERED PER SHIFT SCH ×3 (05:37→21:40)
[2017-06-16 05:48] LABS: BANDS 4 % (0-6); MYELOCYTES 1 % (0-0); NEUTROPHIL # MANUAL DIFF 9.3 TH/MM3 (1.8-7.7); POLYS (SEG NEUTROPHILS) 86 % (16-70); PROMYELOCYTES 1 % (0-0); WBC DIFF SAMPLE 100
[2017-06-16 05:49] LABS: PLATELET ESTIMATE SMEAR NORMAL (NORMAL); PLATELET MORPHOLOGY NORMAL (NORMAL); SCAN/DIFF FINAL DIFF MANUAL
[2017-06-16] MEDS: SODIUM CHLOR 0.9% 1000 ML INJ 1,000 ML IV SCH (08:45)
[2017-06-16] MEDS: SODIUM CHLORIDE 0.9% FLUSH 10 ML FLUSH IV FLUSH SCH (09:00)
[2017-06-16] MEDS: SODIUM CHLORIDE 0.9% FLUSH 5 ML FLUSH IVF SCH ×2 (09:00→19:48)
[2017-06-16] MEDS: HEPARIN SODIUM - SQ 10,000 UNITS/ML VIAL SQ SCH ×2 (09:07→19:46)
[2017-06-16] MEDS: PANTOPRAZOLE SODIUM 40 MG VIAL IVP SCH (09:08)
--- NOTE | 2017-06-16 09:57 | HHI.CCPN ---
Subjective Remarks/Hospital Course 31-year-old male. Date of admission 06/13/2017. Past medical history includes recent diagnosis of ulcerative colitis 05/23 on chronic prednisone taper. The patient also has a history of psoriasis and was on Humira for approximate 7 years. In office since 11/23. diagnosed in [place] with Yersinia diarrhea was placed on Levaquin and Flagyl at that time. However, the patient continued having symptoms and was seen in the emergency department in May. The patient was subsequently admitted after he had a CT the abdomen and pelvis which revealed diffuse enterocolitis in 05/23. [place]. \ Dr. Romo for EGD/ colonoscopy which will class C esophagitis, gastritis and ulcerative colitis. The patient was placed on Asacol and prednisone in the emergency department was subsequent discharged home. He is currently on a prednisone taper down to 30 mg daily recently, noted to have has increasing abdominal pain and distention with decreased oral intake. The patient states he has persistent nausea, postprandial vomiting, and singultus. The patient estimates a 25 pound weight loss from 1 month ago. The patient just went from prednisone 40 mg per day to prednisone 30 mg today. Laboratories revealed his lactic acidosis of 3.7, elevated white blood cell count and elevated potassium and ALT. CT abdomen/os revealed pneumoperitoneum. Dr. Mcneill/colo rectal surgery was consulted. Today, patient asked for treatment laparotomy, subtotal colectomy with ileostomy and rigid sigmoidoscopy. Right lower quadrant os ostomy. Left YUNIOR placement. EBL 100. 200 cc urine output. 2800 cc crystalloid. No complications. Extubated in PACU. Currently on morphine ESTATE CONSERVATOR. Subjective 06/14: Resting in bed in no acute distress. Currently not on ESTATE CONSERVATOR. Afebrile. Abdomen benign. No ostomy output yet. 06/15: Well perfused. Fluid balance about right, urine output excellent. Alert, breathing comfortably. 06/16: No complaints. Pain control acceptable. Objective Vital Signs Date Time Temp Pulse Resp B/P Pulse Ox O2 Delivery O2 Flow Rate FiO2 06/16/17 06:00 68 06/16/17 05:37 21 06/16/17 04:00 97.7 115/64 100 06/15/17 19:00 Room Air 06/13/17 22:15 4 Intake and Output 06/15/17 06/15/17 06/16/17 08:00 16:00 00:00 Intake Total 1635 ml 1379 ml 1067 ml Output Total 650 ml 1680 ml 850 ml Balance 985 ml -301 ml 217 ml Result Diagram: 06/16/17 0415 06/16/17 0415 Imaging Last Impressions Abdomen X-Ray 06/13/17 1501 Signed Impressions: Service Date/Time: Tuesday, June 13, 2017 15:06 - CONCLUSION: Pneumoperitoneum characteristic of perforated viscus. Juan Johnson MD Objective Remarks GENERAL: -31year-old male, comfortable. SKIN: Warm and dry. No rash HEAD: Atraumatic. Normocephalic. EYES:. No scleral icterus. No injection or drainage. ENT: No nasal bleeding or discharge. Mucous membranes pink and moist. NECK: Trachea midline. No stridor. CARDIOVASCULAR: Regular rate and rhythm. S1, S2. No m,r. RESPIRATORY: Clear to auscultation. Breath sounds equal bilaterally. GASTROINTESTINAL: Abdomen soft, ostomy in right lower quadrant. YUNIOR in left lower quadrant. Midline incision is clean dry and intact. MUSCULOSKELETAL: Extremities without significant peripheral edema. No obvious deformities. Well perfused. NEUROLOGICAL: Awake and alert, O X 3. No obvious cranial nerve deficits. Motor grossly within normal limits. Normal speech. A/P Assessment and Plan Neuro/Psych: Postoperative pain management Currently on morphine ESTATE CONSERVATOR for pain management [place] 5/325 with every 4 hours when necessary pain CV: Severe sepsis secondary to perforation Lactic acidosis Patient is currently D5 normal saline 125 cc an hour Currently not requiring vasopressors and/or antihypertensives. See ID for antibiotics Resp: Nasal cannula to maintain saturations greater than equal to 92% currently on room air Incentive spirometry while awake GI: Elevated ALT Ulcerative colitis diagnosed 05/23 History of Yersinia diarrhea Class C esophagitis Gastritis Postop day #3 exploratory laparotomy/subtotal colectomy with ileostomy/rigid sigmoidoscopy with right lower quadrant ostomy placement secondary to perforation Dr. Menendez EBL 100. Urine output 200. 2800 crystalloid. Currently nothing by mouth. Pantoprazole for GI prophylaxis Ostomy cares Colorectal surgery/Dr. Menendez following : Skaggs catheter currently not indicated Endo: Sliding-scale insulin if indicated to maintain euglycemia Renal: Monitor urine output Accurate I's and O's Follow BMP in a.m. Heme: Leukocytosis Normocytic anemia Monitor CBC daily. Follow trends. No indications for transfusion of blood proximal at this time ID: Ancef 1 g IV every 6 hours 4 dosages per colorectal surgery Currently on Zosyn day #4. 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 Access - Utilize peripheral IV. Central line if indicated Prophylaxis - GI - pantoprazole - DVT - SCD/pharmacological prophylaxis with heparin subcutaneous 5000 units every 12 Overall impression: Good progress and uneventful course s/p urgent colectomy. Will taper steroids to moderate dose for now. Will transfer to hospitalist group. Patrick Hanna MD Jun 16, 2017 09:57
--- NOTE | 2017-06-16 11:02 | PD.WCN.NOT ---
Wound Consult Description: Consult for NEW OSTOMY TEACHING per Dr Menendez Communicated with: Patient Patients at bedside MARIA ISABEL Hernández Recommendation: Practice releasing air from pouch. Empty effluent from pouch. Write down any questions you may have. Additional Information: Patient seen on [address] [place] [address] for further ilestomy teaching. Ostomy Type: Ileostomy Surgeon: Kathy Menendez MD Date of Surgery: Jun 13, 2017 Complete: Starter kit, Education materials Educated patient on: Opening and closing and emptying pouch of effluent and air. Additional information Patient seen on [address] [place] [address] for further ileostomy teaching. Patient is sitting up in chair upon arrival for teaching with at bedside. Patient had practiced opening and closing pouch provided in kit. Patient had also attached the complete appliance to the practice stoma. Patient and had a few questions written down for today, all were answered. Patient practiced and demonstrated removing pouch from practice stoma using adhesive remover wipes. Patient states he will practice releasing air from his own appliance and practice emptying his pouch with the RN today/roger. Haven Askew [facility] Jun 16, 2017 11:02
--- NOTE | 2017-06-16 18:19 | HHI.PR ---
Subjective Remarks POD#3 s/p ex lap, subtotal colectomy, ileostomy comfortable, hungry Objective Vital Signs Date Time Temp Pulse Resp B/P Pulse Ox O2 Delivery O2 Flow Rate FiO2 06/16/17 16:00 59 06/16/17 16:00 98.0 59 22 141/73 98 06/16/17 14:00 21 06/16/17 12:00 97.5 64 16 131/75 99 06/16/17 12:00 64 06/16/17 10:00 60 06/16/17 08:30 Room Air 06/16/17 08:00 97.6 68 21 135/70 99 06/16/17 08:00 68 06/16/17 07:06 55 06/16/17 06:00 68 06/16/17 05:37 21 06/16/17 04:00 97.7 56 14 115/64 100 06/16/17 04:00 62 06/16/17 02:00 58 06/16/17 00:19 97 06/16/17 00:00 98.9 56 18 105/56 100 06/16/17 00:00 58 06/15/17 22:00 81 06/15/17 22:00 21 06/15/17 20:00 98.8 74 22 116/60 100 06/15/17 20:00 78 06/15/17 19:00 100 Room Air 06/15/17 18:19 18 I/O 06/15/17 06/15/17 06/15/17 06/16/17 06/16/17 06/16/17 07:00 15:00 23:00 07:00 15:00 23:00 Intake Total 1635 ml 1379 ml 1067 ml 973 ml 1390 ml Output Total 650 ml 1680 ml 850 ml 1250 ml 1060 ml Balance 985 ml -301 ml 217 ml -277 ml 330 ml IV Total 944 ml 643 ml 338 ml 276 ml 457 ml TPN/PPN 617 ml 649 ml 649 ml 622 ml 829 ml Lipid 74 ml 87 ml 80 ml 75 ml 104 ml Output Urine Total 650 ml 1050 ml 700 ml 1250 ml 800 ml Stool Total 10 ml Gastric Drainage Total 50 ml Drainage Total 570 ml 150 ml 0 ml 260 ml Result Diagram: 06/16/17 0415 06/16/17 0415 Objective Remarks Alert Abdomen soft, nondistended, tender Wound clean YUNIOR serous ileostomy + flatus/stool Assessment and Plan Assessment and Plan D/C NGT D/C tele D/C reno Transfer to [facility] [place] cautiously Wean steroids Kathy Menendez MD Jun 16, 2017 18:19
[2017-06-16] MEDS: FAT EMULSION 20% INJ 250 ML (@10 mls/hr) IV-CENTRAL SCH (19:46)
[2017-06-16] MEDS: FOLIC ACID IV-CENTRAL SCH ×4 (19:47)
[2017-06-16] MEDS: MULTIVITAMIN IV-CENTRAL SCH ×4 (19:47)
[2017-06-16] MEDS: AMINO ACID IV-CENTRAL SCH ×4 (19:47)
[2017-06-16] MEDS: FAMOTIDINE IV-CENTRAL SCH ×4 (19:47)
[2017-06-16] MEDS: [UNRECOGNIZED DRUG - OTHER] IV-CENTRAL SCH ×4 (19:47)
[2017-06-17] VITALS (7 sets, daily range): BP systolic 108–137; BP diastolic 63–79; PULSE 66–100; RESP 11–23; TEMP 96–98.2; O2SAT 98–100
[2017-06-17] MEDS: PIPERACIL-TAZO 3.375 GM PREMIX 50 ML IV SCH ×4 (01:45→20:00)
[2017-06-17 04:31] LABS: AUTOMATED NEUTROPHIL # 10.7 TH/MM3 (1.8-7.7); BASOPHIL % 0.1 % (0.0-2.0); EOSINOPHIL % 0.1 % (0.0-4.0); HEMATOCRIT 24.4 % (39.0-51.0); HEMO FLAGS DIFF FINAL; LYMPH % 7.6 % (9.0-44.0); LYMPHOCYTE # 0.9 TH/MM3 (1.0-4.8); MEAN CELL VOLUME 88.6 FL (80.0-100.0); MEAN CORPUSCULAR HEMOGLOBIN 30.8 PG (27.0-34.0); MEAN CORPUSCULAR HGB CONC 34.8 % (32.0-36.0); MONO % 5.1 % (0.0-8.0); NEUT % 87.1 % (16.0-70.0); PLATELET COUNT 233 TH/MM3 (150-450); RED BLOOD COUNT 2.75 MIL/MM3 (4.50-5.90); RED CELL DISTRIBUTION WIDTH 12.8 % (11.6-17.2); WHITE BLOOD COUNT 12.3 TH/MM3 (4.0-11.0)
[2017-06-17 04:41] LABS: BICARBONATE 35.7 MEQ/L (21.0-32.0)
[2017-06-17 04:47] LABS: POTASSIUM 2.9 MEQ/L (3.5-5.1)
[2017-06-17] MEDS: POTASSIUM CHLOR 40 MEQ PREMIX 100 ML IV PRN (05:00)
[2017-06-17] MEDS: PCA - TOTAL MG MORPHINE DELIVERED PER SHIFT SCH ×3 (05:00→22:00)
[2017-06-17 05:01] LABS: CALCIUM-PROTEIN CORRECTED 8.4 MG/DL (8.5-10.1)
[2017-06-17] MEDS: MORPHINE SULFATE 30 MG/30 ML PCA IV SCH (06:59)
[2017-06-17] MEDS: SODIUM CHLOR 0.9% 1000 ML INJ 1,000 ML IV SCH ×2 (08:45→20:50)
[2017-06-17] MEDS ORDERED: POTASSIUM CHLORIDE 10 MEQ CONTROLLED RELEASE TAB PO ONE (08:45)
[2017-06-17] MEDS: SODIUM CHLORIDE 0.9% FLUSH 5 ML FLUSH IVF SCH ×2 (09:00→20:11)
[2017-06-17] MEDS: SODIUM CHLORIDE 0.9% FLUSH 10 ML FLUSH IV FLUSH SCH ×2 (09:00→09:45)
[2017-06-17] MEDS: PANTOPRAZOLE SODIUM 40 MG VIAL IVP SCH (09:37)
[2017-06-17] MEDS: HEPARIN SODIUM - SQ 10,000 UNITS/ML VIAL SQ SCH ×2 (09:37→20:09)
[2017-06-17] MEDS: POTASSIUM CHLOR 20 MEQ PREMIX 100 ML IV SCH ×2 (09:42→11:47)
[2017-06-17] MEDS: HYDROCORTISONE SOD SUCCINATE 100 MG VIAL IV PUSH SCH ×2 (09:44→20:10)
--- NOTE | 2017-06-17 10:26 | HHI.PR ---
Subjective Remarks Patient reports is feeling okay. Tolerating his diet. Pain is controlled. No nausea or vomiting. Potassium persistently low. Objective Vitals Vital Signs Date Time Temp Pulse Resp B/P Pulse Ox O2 Delivery O2 Flow Rate FiO2 06/17/17 06:59 12 06/17/17 05:00 12 06/17/17 04:00 97.8 66 11 124/68 98 06/17/17 00:00 97.6 87 20 124/71 99 06/16/17 21:40 18 06/16/17 20:00 98.0 71 20 131/71 100 06/16/17 20:00 71 06/16/17 20:00 100 Room Air 06/16/17 18:00 90 06/16/17 16:00 59 06/16/17 16:00 98.0 59 22 141/73 98 06/16/17 14:00 21 06/16/17 12:00 97.5 64 16 131/75 99 06/16/17 12:00 64 I/O 06/16/17 06/16/17 06/16/17 06/17/17 06/17/17 06/17/17 07:00 15:00 23:00 07:00 15:00 23:00 Intake Total 973 ml 1390 ml 1053 ml 1306 ml Output Total 1250 ml 1060 ml 380 ml 1205 ml Balance -277 ml 330 ml 673 ml 101 ml Intake Oral 480 ml IV Total 276 ml 457 ml 185 ml 88 ml TPN/PPN 622 ml 829 ml 347 ml 923 ml Lipid 75 ml 104 ml 41 ml 295 ml Output Urine Total 1250 ml 800 ml 350 ml 925 ml Stool Total 0 ml 100 ml Drainage Total 0 ml 260 ml 30 ml 180 ml Result Diagram: 06/17/17 0410 06/17/17 0410 Imaging Last Impressions Chest X-Ray 06/14/17 0000 Signed Impressions: Service Date/Time: Wednesday, June 14, 2017 16:49 - CONCLUSION: Satisfactory PICC line position Luis Manuel Hoyos MD Abdomen X-Ray 06/13/17 1501 Signed Impressions: Service Date/Time: Tuesday, June 13, 2017 15:06 - CONCLUSION: Pneumoperitoneum characteristic of perforated viscus. Juan Johnson MD Objective Remarks GENERAL: Patient is in no apparent distress. CARDIOVASCULAR: Normal rate and regular rhythm without murmurs, gallops, or rubs. RESPIRATORY: Good respiratory efforts. Breath sounds equal and clear to auscultation bilaterally. GASTROINTESTINAL: Abdomen soft, ostomy in place. He also has a drain on the left side. non-distended. Normal active bowel sounds MUSCULOSKELETAL: Extremities without cyanosis, or edema. NEURO: Alert & Oriented x4 to person, place, time, situation. Moves all ext x4 PSYCH: Appropriate mood and affect. A/P Problem List: (1) Perforated viscus ICD Code: R19.8 Status: Acute (2) Elevated ALT measurement ICD Code: R74.0 Status: Acute (3) Anemia ICD Code: D64.9 Status: Acute (4) Leukocytosis ICD Code: D72.829 Status: Acute (5) Arthritis with psoriasis ICD Code: L40.50 Status: Acute (6) Lactic acidosis ICD Code: E87.2 Status: Acute (7) Hyperkalemia ICD Code: E87.5 Status: Acute (8) Hyponatremia ICD Code: E87.1 Status: Acute (9) History of recent steroid use ICD Code: Z92.241 Status: Acute (10) Ulcerative colitis ICD Code: K51.90 Status: Acute (11) Severe sepsis ICD Code: A41.9 Status: Acute Assessment and Plan 31-year-old male with severe complications from ulcerative colitis. Patient is status post subtotal colectomy, ileostomy. Severe sepsis secondary to colon perforation Lactic acidosis Currently not requiring vasopressors and/or antihypertensives. Ancef 1 g IV every 6 hours 4 dosages per colorectal surgery Currently on Zosyn day #5. 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 Dr. Menendez following EBL 100. Urine output 200. 2800 crystalloid. Liquid diet. Advancement per surgery. Pantoprazole for GI prophylaxis Ostomy cares Colorectal surgery/Dr. Menendez following Patient has been on high-dose steroid. Continue to taper. Decrease Solu- Cortef to 25 mg twice a day. 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 Outpatient follow-up. Hypokalemia: Likely secondary to GI loss. Replace and monitor. Prophylaxis - GI - pantoprazole - DVT - SCD/pharmacological prophylaxis with heparin subcutaneous 5000 units every 12 Problem Qualifiers (1) Anemia: Qualified Code: D64.9 - Anemia, unspecified type (2) Leukocytosis: Qualified Code: D72.829 - Leukocytosis, unspecified type (3) Ulcerative colitis: Qualified Code: K51.919 - Ulcerative colitis with complication, unspecified location Jeff Soto MD Jun 17, 2017 10:26
--- NOTE | 2017-06-17 13:14 | HHI.PR ---
Subjective Remarks POD#4 s/p ex lap, subtotal colectomy, ileostomy comfortable Objective Vital Signs Date Time Temp Pulse Resp B/P Pulse Ox O2 Delivery O2 Flow Rate FiO2 06/17/17 12:00 98.2 84 12 111/63 98 06/17/17 08:00 97.7 100 23 137/79 99 06/17/17 07:04 18 06/17/17 07:00 100 Room Air 06/17/17 06:59 12 06/17/17 05:00 12 06/17/17 04:00 97.8 66 11 124/68 98 06/17/17 00:00 97.6 87 20 124/71 99 06/16/17 21:40 18 06/16/17 20:00 98.0 71 20 131/71 100 06/16/17 20:00 71 06/16/17 20:00 100 Room Air 06/16/17 18:00 90 06/16/17 16:00 59 06/16/17 16:00 98.0 59 22 141/73 98 06/16/17 14:00 21 I/O 06/16/17 06/16/17 06/16/17 06/17/17 06/17/17 06/17/17 07:00 15:00 23:00 07:00 15:00 23:00 Intake Total 973 ml 1390 ml 1053 ml 1306 ml Output Total 1250 ml 1060 ml 380 ml 1205 ml Balance -277 ml 330 ml 673 ml 101 ml Intake Oral 480 ml IV Total 276 ml 457 ml 185 ml 88 ml TPN/PPN 622 ml 829 ml 347 ml 923 ml Lipid 75 ml 104 ml 41 ml 295 ml Output Urine Total 1250 ml 800 ml 350 ml 925 ml Stool Total 0 ml 100 ml Drainage Total 0 ml 260 ml 30 ml 180 ml Result Diagram: 06/17/17 0410 06/17/17 0410 Objective Remarks Abdomen soft, nondistended, tender Wound clean UYNIOR serous, high volume ileostomy + flatus/stool Assessment and Plan Assessment and Plan Mobilize Await better bowel function Kathy Menendez MD Jun 17, 2017 13:14
[2017-06-17] MEDS ORDERED: POTASSIUM PHOSPHATE INJ 30 MMOL in SODIUM CHLOR 0.9% 250 ML INJ 250 ML IV ONE (14:00)
--- NOTE | 2017-06-17 16:29 | PD.WCN.NOT ---
Wound Consult Description: Consult for NEW OSTOMY TEACHING per Dr Menendez Post op day #4 Communicated with: Patient Patient family members Recommendation: Open, close, and empty effluent from pouch Additional Information: Patient seen on [address] [place] [address] for ostomy appliance change and further education. Verbal consent obtained for starter kit to be sent to patient home. Ostomy Type: Ileostomy Surgeon: Kathy Menendez MD Date of Surgery: Jun 13, 2017 Complete: Starter kit, Education materials Educated patient on: Removal of appliance. Stoma appearance. Peristomal skin care. Encrusting. Applying a new barrier. Additional information Patient seen on [address] [place] [address] for appliance change with family members at bedside. Appliance was removed by patient using adhesive removal wipes. Once appliance was removed, the barrier was inspected for breakdown. The peristomal skin was assessed and cleansed with water and gauze only. There is a wound noted to the peristoma ~4 o'clock measuring ~0.3cm x 0.6cm x 0.1cm that was encrusted using stoma powder and skin prep prior to patient placing new barrier. Stoma measured 1 1/4" today. Mucocutaneous junction is noted with sutures. Stoma is red, moist , budded, moderately protruding, with lumen noted at 4 o'clock. Stoma is functioning with mucus present and brown/green liquid effluent noted in removed pouch and on stoma itself. Patient was able to apply new barrier to abdomen and apply the pouch to the barrier independently. Patient and family members had questions that were answered. Patient was being transferred to [address] [place] [address] after assessment and teaching was completed. Haven Askew [facility] Jun 17, 2017 16:29
[2017-06-17] MEDS: AMINO ACID IV-CENTRAL SCH ×4 (20:11)
[2017-06-17] MEDS: FOLIC ACID IV-CENTRAL SCH ×4 (20:11)
[2017-06-17] MEDS: [UNRECOGNIZED DRUG - OTHER] IV-CENTRAL SCH ×4 (20:11)
[2017-06-17] MEDS: MULTIVITAMIN IV-CENTRAL SCH ×4 (20:11)
[2017-06-17] MEDS: FAT EMULSION 20% INJ 250 ML (@10 mls/hr) IV-CENTRAL SCH (20:11)
[2017-06-17] MEDS: FAMOTIDINE IV-CENTRAL SCH ×4 (20:11)
[2017-06-18] VITALS: BP 123/68; PULSE 73; RESP 18; TEMP 97.2; O2SAT 98
[2017-06-18] MEDS: PIPERACIL-TAZO 3.375 GM PREMIX 50 ML IV SCH ×4 (02:00→20:01)
[2017-06-18] MEDS: PCA - TOTAL MG MORPHINE DELIVERED PER SHIFT SCH (05:35)
[2017-06-18 06:16] LABS: AUTOMATED NEUTROPHIL # 10.3 TH/MM3 (1.8-7.7); BASOPHIL % 0.1 % (0.0-2.0); EOSINOPHIL # 0.1 TH/MM3 (0-0.4); EOSINOPHIL % 0.7 % (0.0-4.0); HEMATOCRIT 24.6 % (39.0-51.0); LYMPH % 10.8 % (9.0-44.0); LYMPHOCYTE # 1.3 TH/MM3 (1.0-4.8); MEAN CELL VOLUME 89.8 FL (80.0-100.0); MEAN CORPUSCULAR HEMOGLOBIN 31.3 PG (27.0-34.0); MEAN CORPUSCULAR HGB CONC 34.8 % (32.0-36.0); MONO % 6.2 % (0.0-8.0); NEUT % 82.2 % (16.0-70.0); PLATELET COUNT 241 TH/MM3 (150-450); RED BLOOD COUNT 2.74 MIL/MM3 (4.50-5.90); RED CELL DISTRIBUTION WIDTH 12.6 % (11.6-17.2); WHITE BLOOD COUNT 12.5 TH/MM3 (4.0-11.0)
[2017-06-18 06:19] LABS: HEMO FLAGS AUTO DIFF
[2017-06-18 06:59] LABS: POTASSIUM 3.5 MEQ/L (3.5-5.1)
[2017-06-18 07:27] LABS: CALCIUM-PROTEIN CORRECTED 8.7 MG/DL (8.5-10.1)
[2017-06-18 08:00] VITALS: BP 111/56; PULSE 90; RESP 18; TEMP 97.7; O2SAT 97
[2017-06-18] MEDS: HEPARIN SODIUM - SQ 10,000 UNITS/ML VIAL SQ SCH ×2 (08:55→19:47)
[2017-06-18] MEDS: HYDROCORTISONE SOD SUCCINATE 100 MG VIAL IV PUSH SCH (08:56)
[2017-06-18] MEDS: PANTOPRAZOLE SODIUM 40 MG VIAL IVP SCH (08:57)
[2017-06-18] MEDS: SODIUM CHLORIDE 0.9% FLUSH 5 ML FLUSH IVF SCH ×2 (09:00→19:48)
[2017-06-18] MEDS: ARTIFICIAL TEARS OPTH SOLN 15 ML BTL LEFT EYE PRN (09:00)
[2017-06-18 09:27] LABS: BANDS 4 % (0-6); CORRECTED NUCLEATED RBC 1 /100 WBC (0-0); NEUTROPHIL # MANUAL DIFF 12.3 TH/MM3 (1.8-7.7); PLATELET ESTIMATE SMEAR NORMAL (NORMAL); PLATELET MORPHOLOGY NORMAL (NORMAL); POLYS (SEG NEUTROPHILS) 94 % (16-70); SCAN/DIFF FINAL DIFF MANUAL; WBC DIFF SAMPLE 100
--- NOTE | 2017-06-18 11:17 | HHI.PR ---
Subjective Remarks Patient reports he is doing okay. Mild nausea after breakfast this morning. States he had a coughing spell last night which cause some incisional pain. He believed the incision slightly opened up with some leaking. Wants to discuss advancing his diet. Objective Vitals Vital Signs Date Time Temp Pulse Resp B/P Pulse Ox O2 Delivery O2 Flow Rate FiO2 06/18/17 08:00 97.7 90 18 111/56 97 06/18/17 05:35 18 06/18/17 00:00 97.2 73 18 123/68 98 06/17/17 22:00 18 06/17/17 20:00 97.4 82 18 110/67 100 06/17/17 17:00 96.0 99 18 108/70 100 06/17/17 16:00 98.0 84 15 119/64 98 06/17/17 14:00 18 06/17/17 12:00 98.2 84 12 111/63 98 I/O 06/17/17 06/17/17 06/17/17 06/18/17 06/18/17 06/18/17 07:00 15:00 23:00 07:00 15:00 23:00 Intake Total 1306 ml 1593 ml 1026 ml 1523 ml 120 ml Output Total 1205 ml 1065 ml 30 ml 920 ml Balance 101 ml 528 ml 996 ml 603 ml 120 ml Intake Oral 150 ml 240 ml 320 ml 120 ml IV Total 88 ml 98 ml 331 ml 407 ml TPN/PPN 923 ml 794 ml 401 ml 660 ml Lipid 295 ml 551 ml 54 ml 136 ml Output Urine Total 925 ml 675 ml 800 ml Stool Total 100 ml Drainage Total 180 ml 390 ml 30 ml 120 ml # Voids 0 # Bowel Movements 0 0 Result Diagram: 06/18/1752906/18/17 0530 Objective Remarks GENERAL: Patient is in no apparent distress. CARDIOVASCULAR: Normal rate and regular rhythm without murmurs, gallops, or rubs. RESPIRATORY: Good respiratory efforts. Breath sounds equal and clear to auscultation bilaterally. GASTROINTESTINAL: Abdomen soft, ostomy in place. Midline incision appeared clean with minimal leakage at the wound. He also has a drain on the left side draining serosanguineous fluid. non-distended. Normal active bowel sounds MUSCULOSKELETAL: Extremities without cyanosis, or edema. NEURO: Alert & Oriented x4 to person, place, time, situation. Moves all ext x4 PSYCH: Appropriate mood and affect. A/P Problem List: (1) Perforated viscus ICD Code: R19.8 Status: Acute (2) Elevated ALT measurement ICD Code: R74.0 Status: Acute (3) Anemia ICD Code: D64.9 Status: Acute (4) Leukocytosis ICD Code: D72.829 Status: Acute (5) Arthritis with psoriasis ICD Code: L40.50 Status: Acute (6) Lactic acidosis ICD Code: E87.2 Status: Acute (7) Hyperkalemia ICD Code: E87.5 Status: Acute (8) Hyponatremia ICD Code: E87.1 Status: Acute (9) History of recent steroid use ICD Code: Z92.241 Status: Acute (10) Ulcerative colitis ICD Code: K51.90 Status: Acute (11) Severe sepsis ICD Code: A41.9 Status: Acute Assessment and Plan 31-year-old male with severe complications from ulcerative colitis. Patient is status post subtotal colectomy, ileostomy. Ulcerative colitis diagnosed 05/23 History of Yersinia diarrhea Class C esophagitis Gastritis Postop day #5 exploratory laparotomy/subtotal colectomy with ileostomy/rigid sigmoidoscopy with right lower quadrant ostomy placement secondary to perforation. Dr. Menendez following Liquid diet. Advancement per surgery. Pantoprazole for GI prophylaxis Ostomy cares Colorectal surgery/Dr. Menendez following Patient has been on stress dose steroid. Wean off Hydrocortisone Some pressure on the wound when he coughs. No true dehiscence noted. May benefit from steristrips. Defer management to Surgery. DE RN Severe sepsis secondary to colon perforation Lactic acidosis Currently not requiring vasopressors and/or antihypertensives. Ancef 1 g IV every 6 hours 4 dosages per colorectal surgery Currently on Zosyn day #6. 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 He reports he is using it less and less. Discontinue morphine MANAGER LAND. Continue [place] as needed. Add morphine IV for breakthrough pain. 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 Outpatient follow-up. Prophylaxis - GI - pantoprazole - DVT - SCD/pharmacological prophylaxis with heparin subcutaneous 5000 units every 12 Problem Qualifiers (1) Anemia: Qualified Code: D64.9 - Anemia, unspecified type (2) Leukocytosis: Qualified Code: D72.829 - Leukocytosis, unspecified type (3) Ulcerative colitis: Qualified Code: K51.919 - Ulcerative colitis with complication, unspecified location Jeff Soto MD Jun 18, 2017 11:17
--- NOTE | 2017-06-18 11:21 | HHI.PR ---
Objective Vitals Vital Signs Date Time Temp Pulse Resp B/P Pulse Ox O2 Delivery O2 Flow Rate FiO2 06/18/17 08:00 97.7 90 18 111/56 97 06/18/17 05:35 18 06/18/17 00:00 97.2 73 18 123/68 98 06/17/17 22:00 18 06/17/17 20:00 97.4 82 18 110/67 100 06/17/17 17:00 96.0 99 18 108/70 100 06/17/17 16:00 98.0 84 15 119/64 98 06/17/17 14:00 18 06/17/17 12:00 98.2 84 12 111/63 98 I/O 06/17/17 06/17/17 06/17/17 06/18/17 06/18/17 06/18/17 07:00 15:00 23:00 07:00 15:00 23:00 Intake Total 1306 ml 1593 ml 1026 ml 1523 ml 120 ml Output Total 1205 ml 1065 ml 30 ml 920 ml Balance 101 ml 528 ml 996 ml 603 ml 120 ml Intake Oral 150 ml 240 ml 320 ml 120 ml IV Total 88 ml 98 ml 331 ml 407 ml TPN/PPN 923 ml 794 ml 401 ml 660 ml Lipid 295 ml 551 ml 54 ml 136 ml Output Urine Total 925 ml 675 ml 800 ml Stool Total 100 ml Drainage Total 180 ml 390 ml 30 ml 120 ml # Voids 0 # Bowel Movements 0 0 Result Diagram: 06/18/1752906/18/1730 Objective Remarks GENERAL: Patient is in no apparent distress. CARDIOVASCULAR: Normal rate and regular rhythm without murmurs, gallops, or rubs. RESPIRATORY: Good respiratory efforts. Breath sounds equal and clear to auscultation bilaterally. GASTROINTESTINAL: Abdomen soft, ostomy in place. He also has a drain on the left side. non-distended. Normal active bowel sounds MUSCULOSKELETAL: Extremities without cyanosis, or edema. NEURO: Alert & Oriented x4 to person, place, time, situation. Moves all ext x4 PSYCH: Appropriate mood and affect. A/P Problem List: (1) Perforated viscus ICD Code: R19.8 Status: Acute (2) Elevated ALT measurement ICD Code: R74.0 Status: Acute (3) Anemia ICD Code: D64.9 Status: Acute (4) Leukocytosis ICD Code: D72.829 Status: Acute (5) Arthritis with psoriasis ICD Code: L40.50 Status: Acute (6) Lactic acidosis ICD Code: E87.2 Status: Acute (7) Hyperkalemia ICD Code: E87.5 Status: Acute (8) Hyponatremia ICD Code: E87.1 Status: Acute (9) History of recent steroid use ICD Code: Z92.241 Status: Acute (10) Ulcerative colitis ICD Code: K51.90 Status: Acute (11) Severe sepsis ICD Code: A41.9 Status: Acute Assessment and Plan 31-year-old male with severe complications from ulcerative colitis. Patient is status post subtotal colectomy, ileostomy. Severe sepsis secondary to colon perforation Lactic acidosis Currently not requiring vasopressors and/or antihypertensives. Ancef 1 g IV every 6 hours 4 dosages per colorectal surgery Currently on Zosyn day #5. 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 Dr. Menendez following EBL 100. Urine output 200. 2800 crystalloid. Liquid diet. Advancement per surgery. Pantoprazole for GI prophylaxis Ostomy cares Colorectal surgery/Dr. Menendez following Patient has been on high-dose steroid. Continue to taper. Decrease Solu- Cortef to 25 mg twice a day. 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 Outpatient follow-up. Hypokalemia: Likely secondary to GI loss. Replace and monitor. Prophylaxis - GI - pantoprazole - DVT - SCD/pharmacological prophylaxis with heparin subcutaneous 5000 units every 12 Problem Qualifiers (1) Anemia: Qualified Code: D64.9 - Anemia, unspecified type (2) Leukocytosis: Qualified Code: D72.829 - Leukocytosis, unspecified type (3) Ulcerative colitis: Qualified Code: K51.919 - Ulcerative colitis with complication, unspecified location Jeff Soto MD Jun 18, 2017 11:21
[2017-06-18 12:00] VITALS: BP 114/57; PULSE 96; RESP 18; TEMP 96.9; O2SAT 96
[2017-06-18] MEDS ORDERED: MORPHINE SULFATE 4 MG/ML INJ IV PUSH PRN (12:00)
--- NOTE | 2017-06-18 12:27 | HHI.PR ---
Subjective Remarks S/P subtotal colectomy. No N or V. Stooling through Ileostomy. C/O pain. 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 Objective Vital Signs Date Time Temp Pulse Resp B/P Pulse Ox O2 Delivery O2 Flow Rate FiO2 06/18/17 08:00 97.7 90 18 111/56 97 06/18/17 05:35 18 06/18/17 00:00 97.2 73 18 123/68 98 06/17/17 22:00 18 06/17/17 20:00 97.4 82 18 110/67 100 06/17/17 17:00 96.0 99 18 108/70 100 06/17/17 16:00 98.0 84 15 119/64 98 06/17/17 14:00 18 I/O 06/17/17 06/17/17 06/17/17 06/18/17 06/18/17 06/18/17 06:59 14:59 22:59 06:59 14:59 22:59 Intake Total 1306 ml 1593 ml 1026 ml 1523 ml 120 ml Output Total 1205 ml 1065 ml 30 ml 920 ml Balance 101 ml 528 ml 996 ml 603 ml 120 ml Intake Oral 150 ml 240 ml 320 ml 120 ml IV Total 88 ml 98 ml 331 ml 407 ml TPN/PPN 923 ml 794 ml 401 ml 660 ml Lipid 295 ml 551 ml 54 ml 136 ml Output Urine Total 925 ml 675 ml 800 ml Stool Total 100 ml Drainage Total 180 ml 390 ml 30 ml 120 ml # Voids 0 # Bowel Movements 0 0 Result Diagram: 06/18/1730 06/18/17529 Objective Remarks VS-S Abd: flat,dressing back on at pt request. 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 Needs PO pain meds for more steady relief. Wean TPN. Prednisone 20 mg/day Luis Manuel Esteban MD Jun 18, 2017 12:27
[2017-06-18 16:00] VITALS: BP 112/61; PULSE 95; RESP 19; TEMP 97.5; O2SAT 97
[2017-06-18] MEDS: ACETAMINOPHEN/HYDROcodone 325 MG/5 MG TAB PO PRN (16:24)
[2017-06-18] MEDS: AMINO ACID IV-CENTRAL SCH ×4 (19:47)
[2017-06-18] MEDS: MULTIVITAMIN IV-CENTRAL SCH ×4 (19:47)
[2017-06-18] MEDS: FOLIC ACID IV-CENTRAL SCH ×4 (19:47)
[2017-06-18] MEDS: [UNRECOGNIZED DRUG - OTHER] IV-CENTRAL SCH ×4 (19:47)
[2017-06-18] MEDS: FAMOTIDINE IV-CENTRAL SCH ×4 (19:47)
[2017-06-18] MEDS: FAT EMULSION 20% INJ 250 ML (@10 mls/hr) IV-CENTRAL SCH (19:47)
[2017-06-18 20:00] VITALS: BP 111/63; PULSE 87; RESP 18; TEMP 98.1; O2SAT 100
[2017-06-19] VITALS: BP 114/61; PULSE 108; RESP 18; TEMP 98.4; O2SAT 97
[2017-06-19] MEDS: PIPERACIL-TAZO 3.375 GM PREMIX 50 ML IV SCH ×4 (00:23→20:08)
[2017-06-19 05:39] LABS: HEMATOCRIT 27.3 % (39.0-51.0); MEAN CELL VOLUME 90.9 FL (80.0-100.0); MEAN CORPUSCULAR HEMOGLOBIN 30.6 PG (27.0-34.0); MEAN CORPUSCULAR HGB CONC 33.6 % (32.0-36.0); PLATELET COUNT 271 TH/MM3 (150-450); RED BLOOD COUNT 3.01 MIL/MM3 (4.50-5.90); REVIEW FLAG FINAL; WHITE BLOOD COUNT 15.3 TH/MM3 (4.0-11.0)
[2017-06-19 06:25] LABS: BICARBONATE 33.4 MEQ/L (21.0-32.0); POTASSIUM 3.6 MEQ/L (3.5-5.1)
[2017-06-19] MEDS: ACETAMINOPHEN/HYDROcodone 325 MG/5 MG TAB PO PRN ×3 (06:32→20:03)
[2017-06-19 06:44] LABS: CALCIUM-PROTEIN CORRECTED 8.6 MG/DL (8.5-10.1)
[2017-06-19 08:00] VITALS: BP 117/65; PULSE 100; RESP 18; TEMP 97.4; O2SAT 97
[2017-06-19] MEDS: PANTOPRAZOLE SODIUM 40 MG VIAL IVP SCH (08:38)
[2017-06-19] MEDS: SODIUM CHLORIDE 0.9% FLUSH 10 ML FLUSH IV FLUSH SCH (08:39)
[2017-06-19] MEDS: predniSONE 20 MG TAB PO SCH (08:39)
[2017-06-19] MEDS: SODIUM CHLORIDE 0.9% FLUSH 5 ML FLUSH IVF SCH ×2 (08:57→20:08)
[2017-06-19] MEDS: SODIUM CHLOR 0.9% 1000 ML INJ 1,000 ML IV SCH (08:57)
[2017-06-19] MEDS: HEPARIN SODIUM - SQ 10,000 UNITS/ML VIAL SQ SCH ×2 (08:57→20:02)
--- NOTE | 2017-06-19 09:11 | HHI.PR ---
Subjective Remarks No acute events overnight. Afebrile, vital signs stable. Patient with no complaints this morning. States he had some nausea last night after taking his [place], relieved with Zofran. Has decreased appetite however is tolerating small amounts of by mouth. Denies fever/chills. Objective Vitals Vital Signs Date Time Temp Pulse Resp B/P Pulse Ox O2 Delivery O2 Flow Rate FiO2 06/19/17 08:00 97.4 100 18 117/65 97 06/19/17 00:00 98.4 108 18 114/61 97 06/18/17 20:00 98.1 87 18 111/63 100 06/18/17 16:00 97.5 95 19 112/61 97 06/18/17 12:00 96.9 96 18 114/57 96 I/O 06/18/17 06/18/17 06/18/17 06/19/17 06/19/17 06/19/17 06:59 14:59 22:59 06:59 14:59 22:59 Intake Total 1523 ml 1964 ml 1122 ml 978 ml 120 ml Output Total 920 ml 725 ml 1060 ml 990 ml Balance 603 ml 1239 ml 62 ml -12 ml 120 ml Intake Oral 320 ml 840 ml 120 ml 0 ml 120 ml IV Total 407 ml 308 ml 290 ml 290 ml TPN/PPN 660 ml 726 ml 640 ml 610 ml Lipid 136 ml 90 ml 72 ml 78 ml Output Urine Total 800 ml 600 ml 875 ml 900 ml Stool Total 25 ml 125 ml Drainage Total 120 ml 100 ml 60 ml 90 ml # Bowel Movements 0 Result Diagram: 06/19/17 0528 06/19/17 0528 Objective Remarks GENERAL: Patient is in no apparent distress. CARDIOVASCULAR: Normal rate and regular rhythm without murmurs, gallops, or rubs. RESPIRATORY: Good respiratory efforts. Breath sounds equal and clear to auscultation bilaterally. GASTROINTESTINAL: Abdomen soft, ostomy in place. Midline incision appeared clean with minimal leakage at the wound. He also has a drain on the left side draining serosanguineous fluid. non-distended. Normal active bowel sounds. Ostomy site pink. MUSCULOSKELETAL: Extremities without cyanosis, or edema. NEURO: Alert & Oriented x4 to person, place, time, situation. Moves all ext x4 PSYCH: Appropriate mood and affect. A/P Problem List: (1) Perforated viscus ICD Code: R19.8 Status: Acute (2) Elevated ALT measurement ICD Code: R74.0 Status: Acute (3) Anemia ICD Code: D64.9 Status: Acute (4) Leukocytosis ICD Code: D72.829 Status: Acute (5) Arthritis with psoriasis ICD Code: L40.50 Status: Acute (6) Lactic acidosis ICD Code: E87.2 Status: Acute (7) Hyperkalemia ICD Code: E87.5 Status: Acute (8) Hyponatremia ICD Code: E87.1 Status: Acute (9) History of recent steroid use ICD Code: Z92.241 Status: Acute (10) Ulcerative colitis ICD Code: K51.90 Status: Acute (11) Severe sepsis ICD Code: A41.9 Status: Acute Assessment and Plan 31-year-old male with severe complications from ulcerative colitis. Patient is status post subtotal colectomy, ileostomy. Ulcerative colitis diagnosed 05/23 History of Yersinia diarrhea Class C esophagitis Gastritis Postop day #6 exploratory laparotomy/subtotal colectomy with ileostomy/rigid sigmoidoscopy with right lower quadrant ostomy placement secondary to perforation. Dr. Menendez following Regular diet. Patient remains on TPN at this time. Pantoprazole for GI prophylaxis Ostomy cares Colorectal surgery/Dr. Menendez following Patient has been on stress dose steroid. Wean off Hydrocortisone, currently on prednisone 20 mg daily Severe sepsis secondary to colon perforation Lactic acidosis Currently not requiring vasopressors and/or antihypertensives. Ancef 1 g IV every 6 hours 4 dosages per colorectal surgery Currently on Zosyn day #7. 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 Patient tolerating the change well. Pain currently controlled on by mouth medication. 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 Outpatient follow-up. Prophylaxis - GI - pantoprazole - DVT - SCD/pharmacological prophylaxis with heparin subcutaneous 5000 units every 12 Discharge Planning Pending clearance from colorectal surgery and ability to tolerate by mouth diet. Problem Qualifiers (1) Anemia: Qualified Code: D64.9 - Anemia, unspecified type (2) Leukocytosis: Qualified Code: D72.829 - Leukocytosis, unspecified type (3) Ulcerative colitis: Qualified Code: K51.919 - Ulcerative colitis with complication, unspecified location Jenna Reyes MD R3 Jun 19, 2017 09:11
--- NOTE | 2017-06-19 11:02 | HHI.PR ---
Subjective Remarks S/P subtotal colectomy. Some nausea. No vomiting. Tolerating PO. Large Ileostomy outputs. Ambulating Objective Vital Signs Date Time Temp Pulse Resp B/P Pulse Ox O2 Delivery O2 Flow Rate FiO2 06/19/17 08:00 97.4 100 18 117/65 97 06/19/17 00:00 98.4 108 18 114/61 97 06/18/17 20:00 98.1 87 18 111/63 100 06/18/17 16:00 97.5 95 19 112/61 97 06/18/17 12:00 96.9 96 18 114/57 96 I/O 06/18/17 06/18/17 06/18/17 06/19/17 06/19/17 06/19/17 07:00 15:00 23:00 07:00 15:00 23:00 Intake Total 1523 ml 1964 ml 1122 ml 978 ml 120 ml Output Total 920 ml 725 ml 1060 ml 990 ml Balance 603 ml 1239 ml 62 ml -12 ml 120 ml Intake Oral 320 ml 840 ml 120 ml 0 ml 120 ml IV Total 407 ml 308 ml 290 ml 290 ml TPN/PPN 660 ml 726 ml 640 ml 610 ml Lipid 136 ml 90 ml 72 ml 78 ml Output Urine Total 800 ml 600 ml 875 ml 900 ml Stool Total 25 ml 125 ml Drainage Total 120 ml 100 ml 60 ml 90 ml # Bowel Movements 0 Result Diagram: 06/19/17 0528 06/19/17 0528 Objective Remarks VS-S Abd: flat,dressing removed. Some skin separation,but no redness or wound infection. Ileostomy bag dislodged. I&Os-OK Labs-OK Assessment and Plan Assessment and Plan Stable POD#6 Regular diet, Wean TPN. Prednisone 20 mg/day Luis Manuel Esteban MD Jun 19, 2017 11:02
[2017-06-19 12:00] VITALS: BP 112/64; PULSE 88; RESP 19; TEMP 97.7; O2SAT 99
[2017-06-19 16:00] VITALS: BP 98/56; PULSE 113; RESP 19; TEMP 96.9; O2SAT 98
[2017-06-19 20:00] VITALS: BP 108/69; PULSE 124; RESP 18; TEMP 97.7; O2SAT 100
[2017-06-19] MEDS: FAMOTIDINE IV-CENTRAL SCH ×4 (20:08)
[2017-06-19] MEDS: AMINO ACID IV-CENTRAL SCH ×4 (20:08)
[2017-06-19] MEDS: FOLIC ACID IV-CENTRAL SCH ×4 (20:08)
[2017-06-19] MEDS: [UNRECOGNIZED DRUG - OTHER] IV-CENTRAL SCH ×4 (20:08)
[2017-06-19] MEDS: MULTIVITAMIN IV-CENTRAL SCH ×4 (20:08)
[2017-06-20] VITALS: BP 106/60; PULSE 92; RESP 18; TEMP 97; O2SAT 98
[2017-06-20] MEDS: PIPERACIL-TAZO 3.375 GM PREMIX 50 ML IV SCH ×4 (01:58→20:17)
[2017-06-20] MEDS: ACETAMINOPHEN/HYDROcodone 325 MG/5 MG TAB PO PRN ×4 (02:06→22:38)
[2017-06-20 05:43] LABS: AUTOMATED NEUTROPHIL # 9.9 TH/MM3 (1.8-7.7); BASOPHIL % 0.1 % (0.0-2.0); EOSINOPHIL # 0.2 TH/MM3 (0-0.4); EOSINOPHIL % 1.9 % (0.0-4.0); HEMATOCRIT 26.1 % (39.0-51.0); LYMPH % 13.3 % (9.0-44.0); LYMPHOCYTE # 1.7 TH/MM3 (1.0-4.8); MEAN CELL VOLUME 90.8 FL (80.0-100.0); MEAN CORPUSCULAR HGB CONC 34.1 % (32.0-36.0); MONO % 6.6 % (0.0-8.0); NEUT % 78.1 % (16.0-70.0); PLATELET COUNT 279 TH/MM3 (150-450); RED BLOOD COUNT 2.88 MIL/MM3 (4.50-5.90); RED CELL DISTRIBUTION WIDTH 13.2 % (11.6-17.2); WHITE BLOOD COUNT 12.7 TH/MM3 (4.0-11.0)
[2017-06-20 05:45] LABS: HEMO FLAGS AUTO DIFF
[2017-06-20 05:53] LABS: BICARBONATE 32.6 MEQ/L (21.0-32.0); POTASSIUM 4.2 MEQ/L (3.5-5.1)
[2017-06-20 07:32] LABS: BANDS 2 % (0-6); EOSINOPHILS 1 % (0-4); METAMYELOCYTES 2 % (0-1); MYELOCYTES 2 % (0-0); NEUTROPHIL # MANUAL DIFF 10.5 TH/MM3 (1.8-7.7); POLYS (SEG NEUTROPHILS) 77 % (16-70); WBC DIFF SAMPLE 100
[2017-06-20 07:33] LABS: PLATELET ESTIMATE SMEAR NORMAL (NORMAL); PLATELET MORPHOLOGY NORMAL (NORMAL); SCAN/DIFF FINAL DIFF MANUAL
[2017-06-20 08:00] VITALS: BP 106/66; PULSE 91; RESP 17; TEMP 95.9; O2SAT 99
[2017-06-20] MEDS: predniSONE 20 MG TAB PO SCH (08:42)
[2017-06-20] MEDS: PANTOPRAZOLE SODIUM 40 MG VIAL IVP SCH (08:42)
[2017-06-20] MEDS: SODIUM CHLOR 0.9% 1000 ML INJ 1,000 ML IV SCH (08:43)
[2017-06-20] MEDS: SODIUM CHLORIDE 0.9% FLUSH 10 ML FLUSH IV FLUSH SCH (08:43)
[2017-06-20] MEDS: HEPARIN SODIUM - SQ 10,000 UNITS/ML VIAL SQ SCH ×2 (08:43→20:17)
[2017-06-20] MEDS: SODIUM CHLORIDE 0.9% FLUSH 5 ML FLUSH IVF SCH ×2 (08:44→20:17)
--- NOTE | 2017-06-20 11:00 | HHI.PR ---
Subjective Remarks Follow-up for perforated bowel status post subtotal colectomy Patient stated that he is tolerating oral intake better. He complains of intermittent hiccups with certain position. He has output ostomy site area. Patient also stated that he is ambulating in the hallways and is doing well. He remains afebrile. His girlfriend is at the bedside during the interview. Objective Vitals Vital Signs Date Time Temp Pulse Resp B/P Pulse Ox O2 Delivery O2 Flow Rate FiO2 06/20/17 08:00 95.9 91 17 106/66 99 06/20/17 00:00 97.0 92 18 106/60 98 06/19/17 20:00 97.7 124 18 108/69 100 06/19/17 16:00 96.9 113 19 98/56 98 06/19/17 12:00 97.7 88 19 112/64 99 I/O 06/19/17 06/19/17 06/19/17 06/20/17 06/20/17 06/20/17 07:00 15:00 23:00 07:00 15:00 23:00 Intake Total 978 ml 1637 ml 840 ml 680 ml Output Total 990 ml 1570 ml 510 ml 570 ml Balance -12 ml 67 ml 330 ml 110 ml Intake Oral 0 ml 600 ml 240 ml 120 ml IV Total 290 ml 333 ml 200 ml 240 ml TPN/PPN 610 ml 607 ml 320 ml 320 ml Lipid 78 ml 97 ml 80 ml Output Urine Total 900 ml 1300 ml 300 ml 550 ml Stool Total 200 ml 200 ml Drainage Total 90 ml 70 ml 10 ml 20 ml Result Diagram: 06/20/1730 06/20/17529 Objective Remarks GENERAL: In no acute distress. CARDIOVASCULAR: Regular rate and rhythm without murmurs, gallops, or rubs. RESPIRATORY: Breath sounds equal bilaterally. No accessory muscle use. GASTROINTESTINAL: Abdomen soft, non-tender, nondistended. Ostomy site and place. Nontender to palpation. No peritoneal signs. Positive output. YUNIOR drain intact positive for serosanguineous fluid. Medications and IVs Current Medications Morphine Sulfate (Morphine Inj) 4 mg ONCE ONCE IV PUSH Last administered on t 15:16; Start 06/13/17 at 15:15; Stop 06/13/17 at 15:16; Status DC Ondansetron HCl 4 mg 4 mg ONCE ONCE IVP Last administered on 06/13/17 15:15; Start 06/13/17 at 15:15; Stop 06/13/17 at 15:16; Status DC Sodium Chloride (NS 1000 ml Inj) 1,000 ml @ 1,000 mls/hr Q1H IV Last administered on 06/13/17 15:14; Start 06/13/17 at 15:01; Stop 06/13/17 at 16:00; Status DC Sodium Chloride (NS Flush) 2 ml UNSCH PRN IV FLUSH FLUSH AFTER USING IV ACCESS Last administered on 06/14/17 08:31; Start 06/13/17 at 15:15 Famotidine (Pepcid Inj) 20 mg ONCE ONCE IV PUSH Last administered on 06/13/17 15:16; Start 06/13/17 at 15:15; Stop 06/13/17 at 15:16; Status DC Methylprednisolone Sodium Succinate 125 mg 125 mg ONCE ONCE IV PUSH Last administered on 06/13/17 15:16; Start 06/13/17 at 15:15; Stop 06/13/17 at 15:16; Status DC Sodium Chloride 1,000 ml @ 999 mls/hr BOLUS ONCE IV Last administered on 16:11; Start 06/13/17 at 16:00; Stop 06/13/17 at 17:00; Status DC Cefepime HCl 2000 mg/Sodium Chloride 100 ml @ 200 mls/hr ONCE ONCE IV Last administered on 06/13/17 17:04; Start 06/13/17 at 16:15; Stop 06/13/17 at 16:44; Status DC Metronidazole 100 ml @ 100 mls/hr ONCE ONCE IV Last administered on 06/13/17 16:11; Start 06/13/17 at 16:15; Stop 06/13/17 at 17:14; Status DC Sodium Chloride 1,000 ml @ 150 mls/hr Q6H40M IV Last administered on 06/13/17 17:04; Start 06/13/17 at 17:00; Stop 06/13/17 at 21:43; Status DC Piperacillin Sod/ Tazobactam Sod (Zosyn 3.375 Gm Premix) 50 ml @ 100 mls/hr ONCE ONCE IV Last administered on 06/13/17 19:19; Start 06/13/17 at 19:15; Stop 06/13/17 at 19:44; Status DC Midazolam HCl (Versed Inj) 2 mg STK-MED ONCE .ROUTE ; Start 06/13/17 at 19:58; Stop 06/13/17 at 19:59; Status DC Sugammadex Sodium (Bridion Inj) 200 mg STK-MED ONCE IV PUSH ; Start 06/13/17 at 19:58; Stop 06/13/17 at 19:59; Status DC Hydromorphone HCl (Dilaudid Pf Inj) 2 mg STK-MED ONCE .ROUTE ; Start 06/13/17 at 19:58; Stop 06/13/17 at 19:59; Status DC Fentanyl Citrate (fentaNYL INJ) 500 mcg STK-MED ONCE .ROUTE ; Start 06/13/17 at 19:58; Stop 06/13/17 at 19:59; Status DC Sugammadex Sodium (Bridion Inj) 200 mg STK-MED ONCE IV PUSH ; Start 06/13/17 at 20:54; Stop 06/13/17 at 20:55; Status DC Sugammadex Sodium 200 mg 200 mg STK-MED ONCE IV PUSH ; Start 06/13/17 at 21:24; Stop 06/13/17 at 21:25; Status DC Potassium Chloride/Dextrose/ Sod Cl (D5-NS + KCl 20 Meq Inj) 1,000 ml @ 150 mls /hr Q6H40M IV Last administered on 06/13/17 21:28; Start 06/13/17 at 21:28; Stop 06/13/17 at 22:38; Status DC IV Flush (NS Flush) 2 ml UNSCH PRN IVF FLUSH AFTER USING IV ACCESS; Start at 21:30 IV Flush 2 ml 2 ml BID IVF Last administered on 06/20/17 08:44; Start 06/13/17 at 21:30 Cefazolin Sodium/ Sodium Chloride (Ancef Inj/NS Inj) 100 ml @ 200 mls/hr Q6H IV Last administered on 06/14/17 15:28; Start 06/13/17 at 22:00; Stop 06/14/17 at 16:29; Status DC Miscellaneous Information (Post-op Orders (for Pharmacy)) STAT ONCE XX ; Start 06/13/17 at 21:30; Stop 06/13/17 at 21:57; Status DC Acetaminophen/ Hydrocodone Bitart ([place] 5-325 Mg) 1 tab Q6H PRN PO PAIN SCALE 1 TO 4 Last administered on 06/20/17 08:42; Start 06/13/17 at 21:30 Acetaminophen/ Hydrocodone Bitart ([place] 5-325 Mg) 2 tab Q6H PRN PO PAIN SCALE 5 TO 10 Last administered on 06/18/17 23:04; Start 06/13/17 at 21:30 Acetaminophen (Tylenol) 650 mg Q4H PRN PO Temperature > 101F; Start 06/13/17 at 21:30 Pantoprazole Sodium (Protonix Inj) 40 mg DAILY IVP Last administered on 08:42; Start 06/14/17 at 09:00 Ondansetron HCl (Zofran Inj) 4 mg Q6H PRN IV NAUSEA Last administered on 00:55; Start 06/13/17 at 21:30 Enalaprilat (Vasotec Inj) 1.25 mg Q4H PRN IV SYS BP GREATER THAN 160 MMHG; Start 06/13/17 at 21:30 Enalaprilat (Vasotec Inj) 2.5 mg Q6H PRN IV SYS BP GREATER THAN 160 MMHG; Start 06/13/17 at 21:30 Benzocaine/ Menthol 1 lozenge 1 lozenge UNSCH PRN BUCCAL SORE THROAT; Start 06/13/17 at 21:30 Potassium Chloride 100 ml @ 50 mls/hr UNSCH PRN IV POTASSIUM 3 TO 3.5; Start 06/13/17 at 21:30 Potassium Chloride (KCl 40 Meq Premix Inj) 100 ml @ 25 mls/hr UNSCH PRN IV POTASSIUM LESS THAN 3 Last administered on 06/17/17 05:00; Start 06/13/17 at 21: 30 Heparin Sodium (Porcine) (Heparin Inj) 5,000 units Q12H SQ Last administered on 06/20/17 08:43; Start 06/14/17 at 20:00 Naloxone HCl (Narcan Inj) 0.4 mg UNSCH PRN IV RESPIRATORY RATE LESS THAN 10; Start 06/13/17 at 21:30 Diphenhydramine HCl (Benadryl Inj) 25 mg Q6H PRN IV ITCHING; Start 06/13/17 at 21:30 Morphine Sulfate (Morphine 1 Mg/ ml SURFACE GRINDER) 30 mg UNSCH IV Last administered on 06:59; Start 06/13/17 at 21:30; Stop 06/18/17 at 11:58; Status DC SURFACE GRINDER Dosage Infused (Pha) 1 1 Q8HR .XX Last administered on 06/18/17 05:35; Start 06/13/17 at 22:00; Stop 06/18/17 at 11:58; Status DC Piperacillin Sod/ Tazobactam Sod (Zosyn 3.375 Gm Premix) 50 ml @ 100 mls/hr Q6H IV Last administered on 06/20/17 08:43; Start 06/14/17 at 02:00 Hydrocortisone Sodium Succinate 100 mg 100 mg Q8HR IV PUSH Last administered on 06/16/17 05:25; Start 06/13/17 at 22:00; Stop 06/16/17 at 09:51; Status DC Potassium Chloride/Dextrose/ Sod Cl (D5-1/2 NS + KCl 20 Meq Inj) 1,000 ml @ As Directed STK-MED ONCE .ROUTE ; Start 06/13/17 at 21:40; Stop 06/13/17 at 21:41; Status DC Miscellaneous Information ALL NURSING DEPARTME... UNSCH PRN .XX SEE LABEL COMMENTS; Start 06/13/17 at 21:15; Stop 06/14/17 at 21:14; Status DC Dextrose/Sodium Chloride (D5W-NS 1000 ml Inj) 1,000 ml @ 125 mls/hr Q8H IV Last administered on 06/15/17 07:45; Start 06/13/17 at 23:00; Stop 06/15/17 at 08: 43; Status DC Hydrocortisone Sodium Succinate 100 mg 100 mg Q8HR IV PUSH Last administered on 06/13/17 23:15; Start 06/13/17 at 23:15; Stop 06/16/17 at 09:51; Status DC Sodium Phosphate 15 mmol/Sodium Chloride 155 ml @ 38.75 mls/ hr ONCE ONCE IV Last administered on 06/14/17 05:39; Start 06/14/17 at 06:00; Stop 06/14/17 at 09: 59; Status DC Multivitamins 10 ml/Folic Acid 1 mg/Famotidine 20 mg/Amino Acids/ Electrolytes/ Dextrose 2,012.2 ml @ 40 mls/hr Q24H IV-CENTRAL Last administered on 20:08; Start 06/14/17 at 20:00; Stop 06/20/17 at 19:59 Fat Emulsion Intravenous (Liposyn Iii 20% Inj) 250 ml @ 10 mls/hr Q24H IV- CENTRAL Last administered on 06/18/17 19:47; Start 06/14/17 at 20:00; Stop at 10:58; Status DC Sodium Chloride (NS Flush) See Protocol DAILY IV FLUSH Last administered on 08:43; Start 06/15/17 at 09:00 Sodium Chloride (NS Flush) See Protocol UNSCH PRN IV FLUSH SEE PROTOCOL TABLE; Start 06/14/17 at 15:45 Heparin Sodium (Porcine) (Heparin Central Flush) See Protocol DAILY IV FLUSH ; Start 06/15/17 at 09:00 Heparin Sodium (Porcine) (Heparin Central Flush) See Protocol UNSCH PRN IV FLUSH SEE PROTOCOL TABLE Last administered on 06/17/17 05:01; Start 06/14/17 at 15:45 Sodium Chloride (NS Flush) UNSCH PRN IV FLUSH SEE PROTOCOL TABLE; Start at 15:45 Artificial Tears 2 drop 2 drop Q1H PRN LEFT EYE IRRITATION Last administered on 06/14/17 18:15; Start 06/14/17 at 16:00 Sodium Chloride 1,000 ml @ 30 mls/hr Q24H IV Last administered on 06/20/17 08 :43; Start 06/15/17 at 08:45 Potassium Phosphate/Sodium Chloride (Potassium Phosphate Inj/NS 250 ml Inj) 260 ml @ 43.333 mls/ hr ONCE ONCE IV Last administered on 06/15/17 09:24; Start 06/15/17 at 11:00; Stop 06/15/17 at 16:59; Status DC Hydrocortisone Sodium Succinate 50 mg 50 mg Q12HR IV PUSH Last administered on 06/17/17 09:44; Start 06/16/17 at 21:00; Stop 06/17/17 at 10:26; Status DC Potassium Chloride (KCl 20 Meq Premix Inj) 100 ml @ 50 mls/hr Q2H IV Last administered on 06/17/17 11:47; Start 06/17/17 at 08:45; Stop 06/17/17 at 12:44 ; Status DC Potassium Chloride (KCl) 30 meq ONCE ONCE PO ; Start 06/17/17 at 08:45; Stop at 10:22; Status DC Hydrocortisone Sodium Succinate 25 mg 25 mg Q12HR IV PUSH Last administered on 06/18/17 08:56; Start 06/17/17 at 21:00; Stop 06/18/17 at 11:21; Status DC Potassium Phosphate/Sodium Chloride (Potassium Phosphate Inj/NS 250 ml Inj) 260 ml @ 43.333 mls/ hr ONCE ONCE IV Last administered on 06/17/17 14:16; Start 06/17/17 at 14:00; Stop 06/17/17 at 19:59; Status DC Morphine Sulfate (Morphine Inj) 2 mg Q3H PRN IV PUSH BREAKTHROUGH PAIN; Start 06/18/17 at 12:00 Prednisone 20 mg 20 mg DAILY PO Last administered on 06/20/17 08:42; Start at 09:00 Multivitamins/ Folic Acid/ Famotidine/Amino Acids/ Electrolytes/ Dextrose (Mvi- 12 Inj/ Folvite Inj/ Pepcid Inj/ Clinimix E 4.25/ 25) 1,012.2 ml @ 40 mls/hr Q24H IV-CENTRAL ; Start 06/20/17 at 20:00 A/P Problem List: (1) Perforated viscus ICD Code: R19.8 Status: Acute (2) Elevated ALT measurement ICD Code: R74.0 Status: Acute (3) Anemia ICD Code: D64.9 Status: Acute (4) Leukocytosis ICD Code: D72.829 Status: Acute (5) Arthritis with psoriasis ICD Code: L40.50 Status: Acute (6) Lactic acidosis ICD Code: E87.2 Status: Acute (7) Hyperkalemia ICD Code: E87.5 Status: Acute (8) Hyponatremia ICD Code: E87.1 Status: Acute (9) History of recent steroid use ICD Code: Z92.241 Status: Acute (10) Ulcerative colitis ICD Code: K51.90 Status: Acute (11) Severe sepsis ICD Code: A41.9 Status: Acute Assessment and Plan 31-year-old male with severe complications from ulcerative colitis. Patient is status post subtotal colectomy, ileostomy. Ulcerative colitis diagnosed 05/23 History of Yersinia diarrhea Class C esophagitis Gastritis Postop day #7 exploratory laparotomy/subtotal colectomy with ileostomy/rigid sigmoidoscopy with right lower quadrant ostomy placement secondary to perforation. Dr. Menendez following Regular diet. Patient remains on TPN at this time. Advance diet as tolerated. Pantoprazole for GI prophylaxis Ostomy cares Colorectal surgery/Dr. Menendez following Patient has been on stress dose steroid. Wean off Hydrocortisone, currently on prednisone 20 mg daily Severe sepsis secondary to colon perforation Lactic acidosis Currently not requiring vasopressors and/or antihypertensives. Ancef 1 g IV every 6 hours 4 dosages per colorectal surgery Currently on Zosyn day #8. Psychosis is improving and clinically patient is doing well. Continue with Zosyn. Continue antibiotics, continue to monitor Postoperative pain management Patient doing well with [place]. Continue with [place] as needed. 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 Outpatient follow-up. Prophylaxis - GI - pantoprazole - DVT - SCD/pharmacological prophylaxis with heparin subcutaneous 5000 units every 12 Discharge Planning Patient requires continued hospitalization. Will need to wean off TPN. Problem Qualifiers (1) Anemia: Qualified Code: D64.9 - Anemia, unspecified type (2) Leukocytosis: Qualified Code: D72.829 - Leukocytosis, unspecified type (3) Ulcerative colitis: Qualified Code: K51.919 - Ulcerative colitis with complication, unspecified location Katlyn Davenport MD Jun 20, 2017 11:00
[2017-06-20 12:00] VITALS: BP 110/61; PULSE 105; RESP 17; TEMP 96.5; O2SAT 99
--- NOTE | 2017-06-20 13:19 | HHI.PR ---
Subjective Remarks POD#7 s/p ex lap, subtotal colectomy, ileostomy comfortable Objective Vital Signs Date Time Temp Pulse Resp B/P Pulse Ox O2 Delivery O2 Flow Rate FiO2 06/20/17 12:00 96.5 105 17 110/61 99 06/20/17 08:00 95.9 91 17 106/66 99 06/20/17 00:00 97.0 92 18 106/60 98 06/19/17 20:00 97.7 124 18 108/69 100 06/19/17 16:00 96.9 113 19 98/56 98 I/O 06/19/17 06/19/17 06/19/17 06/20/17 06/20/17 06/20/17 07:00 15:00 23:00 07:00 15:00 23:00 Intake Total 978 ml 1637 ml 840 ml 680 ml Output Total 990 ml 1570 ml 510 ml 570 ml 150 ml Balance -12 ml 67 ml 330 ml 110 ml -150 ml Intake Oral 0 ml 600 ml 240 ml 120 ml IV Total 290 ml 333 ml 200 ml 240 ml TPN/PPN 610 ml 607 ml 320 ml 320 ml Lipid 78 ml 97 ml 80 ml Output Urine Total 900 ml 1300 ml 300 ml 550 ml Stool Total 200 ml 200 ml 150 ml Drainage Total 90 ml 70 ml 10 ml 20 ml Result Diagram: 06/20/17 0530 06/20/17529 Objective Remarks Abdomen soft, nondistended, tender Wound clean YUNIOR serous, volume coming down ileostomy + flatus/stool Assessment and Plan Assessment and Plan Agree with wean TPN Steroid taper Off IV pain meds Hopefully home in 2-3 days Kathy Menendez MD Jun 20, 2017 13:19
[2017-06-20 16:00] VITALS: BP 108/68; PULSE 103; RESP 17; TEMP 96.2; O2SAT 100
--- NOTE | 2017-06-20 17:17 | PD.WCN.NOT ---
Wound Consult Description: Consult for NEW OSTOMY TEACHING per Dr Menendez Post op day #7 Communicated with: MARIA ISABEL Mcguire Recommendation: Open, close, and empty effluent from pouch Change appliance as needed with assistance Additional Information: Patient seen on [address] [place] [address] for follow up of ostomy care and assessment Ostomy Type: Ileostomy Surgeon: Kathy Menendez MD Date of Surgery: Jun 13, 2017 Complete: Starter kit, Education materials Educated patient on: Moldable appliances ordered for patient are moldable, therefore they do not need to be cut. Encrusting is sometimes used at appliance changes for skin issues underneath barrier, not all floor RN's are aware of this technique. Patient was taught by senior grant writer with our last appliance change how to encrust using stoma powder and cavilon skin prep (in that order and up to 2 layers). Additional information Discussed with patient and family members at bedside the need to thoroughly chew food. Patient was ambulating in the hallway when seen today. Vitamin bag infusing at this time with patient on soft diet. Peanut butter given for snack. Patient is not very interested in food but states his appetite is getting a little better. Will continue to follow patient while in hospital and up to discharge. Patient has 4 new appliances in room that were ordered in size 1 3/4 " as his stoma is not as edematous as previous assessment and measuring 1 1/4". Haven Askew [facility] Jun 20, 2017 17:17
[2017-06-20 20:00] VITALS: BP 101/65; PULSE 89; RESP 18; TEMP 96.5; O2SAT 100
[2017-06-20] MEDS ORDERED: AMINO ACID IV-CENTRAL SCH ×4 (20:00)
[2017-06-20] MEDS ORDERED: MULTIVITAMIN IV-CENTRAL SCH ×4 (20:00)
[2017-06-20] MEDS ORDERED: [UNRECOGNIZED DRUG - OTHER] IV-CENTRAL SCH ×4 (20:00)
[2017-06-20] MEDS ORDERED: FAMOTIDINE IV-CENTRAL SCH ×4 (20:00)
[2017-06-20] MEDS ORDERED: FOLIC ACID IV-CENTRAL SCH ×4 (20:00)
[2017-06-21] VITALS: BP 121/72; PULSE 101; RESP 18; TEMP 97.1; O2SAT 100
[2017-06-21] MEDS: PIPERACIL-TAZO 3.375 GM PREMIX 50 ML IV SCH ×2 (01:22→07:58)
[2017-06-21] MEDS: ACETAMINOPHEN/HYDROcodone 325 MG/5 MG TAB PO PRN ×3 (04:54→23:26)
[2017-06-21 06:01] LABS: HEMATOCRIT 25.6 % (39.0-51.0); MEAN CELL VOLUME 90.7 FL (80.0-100.0); MEAN CORPUSCULAR HEMOGLOBIN 31.6 PG (27.0-34.0); MEAN CORPUSCULAR HGB CONC 34.8 % (32.0-36.0); PLATELET COUNT 316 TH/MM3 (150-450); RED BLOOD COUNT 2.82 MIL/MM3 (4.50-5.90); RED CELL DISTRIBUTION WIDTH 13.5 % (11.6-17.2); REVIEW FLAG FINAL; WHITE BLOOD COUNT 10.1 TH/MM3 (4.0-11.0)
[2017-06-21 06:28] LABS: BICARBONATE 32.4 MEQ/L (21.0-32.0)
[2017-06-21 06:40] LABS: CALCIUM-PROTEIN CORRECTED 8.4 MG/DL (8.5-10.1)
--- NOTE | 2017-06-21 07:32 | HHI.FF ---
Face to Face Verification Diagnosis: (1) Ulcerative colitis (2) Perforated viscus Home Health Nursing Order: Wound care and dressing changes I have seen patient Jay Mays on 06/21/17. My clinical findings support the need for the requested home health care services because: Limited ability to care for self I certify that my clinical findings support that this patient is homebound because: Post-op weakness New ostomy, post-op Kathy Menendez MD Jun 21, 2017 07:32
[2017-06-21] MEDS: predniSONE 20 MG TAB PO SCH (07:59)
[2017-06-21] MEDS: HEPARIN SODIUM - SQ 10,000 UNITS/ML VIAL SQ SCH ×2 (07:59→23:27)
[2017-06-21 08:00] VITALS: BP 110/63; PULSE 78; RESP 17; TEMP 97.1; O2SAT 100
[2017-06-21] MEDS: SODIUM CHLORIDE 0.9% FLUSH 10 ML FLUSH IV FLUSH SCH (08:00)
[2017-06-21] MEDS: PANTOPRAZOLE SODIUM 40 MG VIAL IVP SCH (08:00)
[2017-06-21] MEDS: SODIUM CHLORIDE 0.9% FLUSH 5 ML FLUSH IVF SCH ×2 (08:01→23:28)
[2017-06-21] MEDS: SODIUM CHLOR 0.9% 1000 ML INJ 1,000 ML IV SCH (08:01)
--- NOTE | 2017-06-21 09:29 | HHI.PR ---
Subjective Remarks POD#8 s/p ex lap, subtotal colectomy, ileostomy comfortable Objective Vital Signs Date Time Temp Pulse Resp B/P Pulse Ox O2 Delivery O2 Flow Rate FiO2 06/21/17 08:00 97.1 78 17 110/63 100 06/21/17 00:00 97.1 101 18 121/72 100 06/20/17 20:00 96.5 89 18 101/65 100 06/20/17 16:00 96.2 103 17 108/68 100 06/20/17 12:00 96.5 105 17 110/61 99 I/O 06/20/17 06/20/17 06/20/17 06/21/17 06/21/17 06/21/17 06:59 14:59 22:59 06:59 14:59 22:59 Intake Total 680 ml 1584 ml 1129 ml Output Total 570 ml 1025 ml 375 ml 925 ml Balance 110 ml 559 ml -375 ml 204 ml Intake Oral 120 ml 960 ml IV Total 240 ml 304 ml 545 ml TPN/PPN 320 ml 320 ml 584 ml Output Urine Total 550 ml 750 ml 375 ml 625 ml Stool Total 225 ml 250 ml Drainage Total 20 ml 50 ml 50 ml Result Diagram: 06/21/17 0450 06/21/17 0450 Objective Remarks Abdomen soft, nondistended, tender Wound clean, some sanguinous drainage YUNIOR serous ileostomy + flatus/stool Assessment and Plan Assessment and Plan Wean TPN off YUNIOR d/c'd change antibiotics to PO ?home tomorrow Kathy Menendez MD Jun 21, 2017 09:28
[2017-06-21] MEDS ORDERED: LEVOFLOXACIN 500 MG TAB PO SCH (09:30)
--- NOTE | 2017-06-21 11:12 | HHI.PR ---
Subjective Remarks Follow-up for subtotal colectomy Patient stated he still doing better today. Tolerating oral intake. Patient stated that he cannot take Flagyl Levaquin. He stated that he had vision loss and urinary retention and that he will not take the medication. Pain control. His is at the bedside during the interview. Objective Vitals Vital Signs Date Time Temp Pulse Resp B/P Pulse Ox O2 Delivery O2 Flow Rate FiO2 06/21/17 08:00 97.1 78 17 110/63 100 06/21/17 00:00 97.1 101 18 121/72 100 06/20/17 20:00 96.5 89 18 101/65 100 06/20/17 16:00 96.2 103 17 108/68 100 06/20/17 12:00 96.5 105 17 110/61 99 I/O 06/20/17 06/20/17 06/20/17 06/21/17 06/21/17 06/21/17 07:00 15:00 23:00 07:00 15:00 23:00 Intake Total 680 ml 1584 ml 1129 ml 194 ml Output Total 570 ml 1025 ml 375 ml 925 ml Balance 110 ml 559 ml -375 ml 204 ml 194 ml Intake Oral 120 ml 960 ml IV Total 240 ml 304 ml 545 ml 194 ml TPN/PPN 320 ml 320 ml 584 ml Output Urine Total 550 ml 750 ml 375 ml 625 ml Stool Total 225 ml 250 ml Drainage Total 20 ml 50 ml 50 ml Result Diagram: 06/21/17 0450 06/21/17 0450 Objective Remarks GENERAL: In no acute distress. CARDIOVASCULAR: Regular rate and rhythm without murmurs, gallops, or rubs. RESPIRATORY: Breath sounds equal bilaterally. No accessory muscle use. GASTROINTESTINAL: Abdomen soft, non-tender, nondistended. Ostomy site and place. Nontender to palpation. No peritoneal signs. Medications and IVs Current Medications Morphine Sulfate (Morphine Inj) 4 mg ONCE ONCE IV PUSH Last administered on 15:16; Start 06/13/17 at 15:15; Stop 06/13/17 at 15:16; Status DC Ondansetron HCl 4 mg 4 mg ONCE ONCE IVP Last administered on 06/13/17 15:15; Start 06/13/17 at 15:15; Stop 06/13/17 at 15:16; Status DC Sodium Chloride (NS 1000 ml Inj) 1,000 ml @ 1,000 mls/hr Q1H IV Last administered on 06/13/17 15:14; Start 06/13/17 at 15:01; Stop 06/13/17 at 16:00; Status DC Sodium Chloride (NS Flush) 2 ml UNSCH PRN IV FLUSH FLUSH AFTER USING IV ACCESS Last administered on 06/14/17 08:31; Start 06/13/17 at 15:15 Famotidine (Pepcid Inj) 20 mg ONCE ONCE IV PUSH Last administered on 06/13/17 15:16; Start 06/13/17 at 15:15; Stop 06/13/17 at 15:16; Status DC Methylprednisolone Sodium Succinate 125 mg 125 mg ONCE ONCE IV PUSH Last administered on 06/13/17 15:16; Start 06/13/17 at 15:15; Stop 06/13/17 at 15:16; Status DC Sodium Chloride 1,000 ml @ 999 mls/hr BOLUS ONCE IV Last administered on 16:11; Start 06/13/17 at 16:00; Stop 06/13/17 at 17:00; Status DC Cefepime HCl 2000 mg/Sodium Chloride 100 ml @ 200 mls/hr ONCE ONCE IV Last administered on 06/13/17 17:04; Start 06/13/17 at 16:15; Stop 06/13/17 at 16:44; Status DC Metronidazole 100 ml @ 100 mls/hr ONCE ONCE IV Last administered on 06/13/17 16:11; Start 06/13/17 at 16:15; Stop 06/13/17 at 17:14; Status DC Sodium Chloride 1,000 ml @ 150 mls/hr Q6H40M IV Last administered on 06/13/17 17:04; Start 06/13/17 at 17:00; Stop 06/13/17 at 21:43; Status DC Piperacillin Sod/ Tazobactam Sod (Zosyn 3.375 Gm Premix) 50 ml @ 100 mls/hr ONCE ONCE IV Last administered on 06/13/17 19:19; Start 06/13/17 at 19:15; Stop 06/13/17 at 19:44; Status DC Midazolam HCl (Versed Inj) 2 mg STK-MED ONCE .ROUTE ; Start 06/13/17 at 19:58; Stop 06/13/17 at 19:59; Status DC Sugammadex Sodium (Bridion Inj) 200 mg STK-MED ONCE IV PUSH ; Start 06/13/17 at 19:58; Stop 06/13/17 at 19:59; Status DC Hydromorphone HCl (Dilaudid Pf Inj) 2 mg STK-MED ONCE .ROUTE ; Start 06/13/17 at 19:58; Stop 06/13/17 at 19:59; Status DC Fentanyl Citrate (fentaNYL INJ) 500 mcg STK-MED ONCE .ROUTE ; Start 06/13/17 at 19:58; Stop 06/13/17 at 19:59; Status DC Sugammadex Sodium (Bridion Inj) 200 mg STK-MED ONCE IV PUSH ; Start 06/13/17 at 20:54; Stop 06/13/17 at 20:55; Status DC Sugammadex Sodium 200 mg 200 mg STK-MED ONCE IV PUSH ; Start 06/13/17 at 21:24; Stop 06/13/17 at 21:25; Status DC Potassium Chloride/Dextrose/ Sod Cl (D5-NS + KCl 20 Meq Inj) 1,000 ml @ 150 mls /hr Q6H40M IV Last administered on 06/13/17 21:28; Start 06/13/17 at 21:28; Stop 06/13/17 at 22:38; Status DC IV Flush (NS Flush) 2 ml UNSCH PRN IVF FLUSH AFTER USING IV ACCESS; Start at 21:30 IV Flush 2 ml 2 ml BID IVF Last administered on 06/20/17 08:44; Start 06/13/17 at 21:30 Cefazolin Sodium/ Sodium Chloride (Ancef Inj/NS Inj) 100 ml @ 200 mls/hr Q6H IV Last administered on 06/14/17 15:28; Start 06/13/17 at 22:00; Stop 06/14/17 at 16:29; Status DC Miscellaneous Information (Post-op Orders (for Pharmacy)) STAT ONCE XX ; Start 06/13/17 at 21:30; Stop 06/13/17 at 21:57; Status DC Acetaminophen/ Hydrocodone Bitart (Byron 5-325 Mg) 1 tab Q6H PRN PO PAIN SCALE 1 TO 4 Last administered on 06/21/17 04:54; Start 06/13/17 at 21:30 Acetaminophen/ Hydrocodone Bitart (Byron 5-325 Mg) 2 tab Q6H PRN PO PAIN SCALE 5 TO 10 Last administered on 06/18/17 23:04; Start 06/13/17 at 21:30 Acetaminophen (Tylenol) 650 mg Q4H PRN PO Temperature > 101F; Start 06/13/17 at 21:30 Pantoprazole Sodium (Protonix Inj) 40 mg DAILY IVP Last administered on 08:00; Start 06/14/17 at 09:00 Ondansetron HCl (Zofran Inj) 4 mg Q6H PRN IV NAUSEA Last administered on 00:55; Start 06/13/17 at 21:30 Enalaprilat (Vasotec Inj) 1.25 mg Q4H PRN IV SYS BP GREATER THAN 160 MMHG; Start 06/13/17 at 21:30 Enalaprilat (Vasotec Inj) 2.5 mg Q6H PRN IV SYS BP GREATER THAN 160 MMHG; Start 06/13/17 at 21:30 Benzocaine/ Menthol 1 lozenge 1 lozenge UNSCH PRN BUCCAL SORE THROAT; Start 06/13/17 at 21:30 Potassium Chloride 100 ml @ 50 mls/hr UNSCH PRN IV POTASSIUM 3 TO 3.5; Start 06/13/17 at 21:30 Potassium Chloride (KCl 40 Meq Premix Inj) 100 ml @ 25 mls/hr UNSCH PRN IV POTASSIUM LESS THAN 3 Last administered on 06/17/17 05:00; Start 06/13/17 at 21: 30 Heparin Sodium (Porcine) (Heparin Inj) 5,000 units Q12H SQ Last administered on 06/21/17 07:59; Start 06/14/17 at 20:00 Naloxone HCl (Narcan Inj) 0.4 mg UNSCH PRN IV RESPIRATORY RATE LESS THAN 10; Start 06/13/17 at 21:30 Diphenhydramine HCl (Benadryl Inj) 25 mg Q6H PRN IV ITCHING; Start 06/13/17 at 21:30 Morphine Sulfate (Morphine 1 Mg/ ml MIX HOUSE TENDER) 30 mg UNSCH IV Last administered on 06:59; Start 06/13/17 at 21:30; Stop 06/18/17 at 11:58; Status DC MIX HOUSE TENDER Dosage Infused (Pha) 1 1 Q8HR .XX Last administered on 06/18/17 05:35; Start 06/13/17 at 22:00; Stop 06/18/17 at 11:58; Status DC Piperacillin Sod/ Tazobactam Sod (Zosyn 3.375 Gm Premix) 50 ml @ 100 mls/hr Q6H IV Last administered on 06/21/17 07:58; Start 06/14/17 at 02:00; Stop 06/21 at 09:31; Status DC Hydrocortisone Sodium Succinate 100 mg 100 mg Q8HR IV PUSH Last administered on 06/16/17 05:25; Start 06/13/17 at 22:00; Stop 06/16/17 at 09:51; Status DC Potassium Chloride/Dextrose/ Sod Cl (D5-1/2 NS + KCl 20 Meq Inj) 1,000 ml @ As Directed STK-MED ONCE .ROUTE ; Start 06/13/17 at 21:40; Stop 06/13/17 at 21:41; Status DC Miscellaneous Information ALL NURSING DEPARTME... UNSCH PRN .XX SEE LABEL COMMENTS; Start 06/13/17 at 21:15; Stop 06/14/17 at 21:14; Status DC Dextrose/Sodium Chloride (D5W-NS 1000 ml Inj) 1,000 ml @ 125 mls/hr Q8H IV Last administered on 06/15/17 07:45; Start 06/13/17 at 23:00; Stop 06/15/17 at 08: 43; Status DC Hydrocortisone Sodium Succinate 100 mg 100 mg Q8HR IV PUSH Last administered on 06/13/17 23:15; Start 06/13/17 at 23:15; Stop 06/16/17 at 09:51; Status DC Sodium Phosphate 15 mmol/Sodium Chloride 155 ml @ 38.75 mls/ hr ONCE ONCE IV Last administered on 06/14/17 05:39; Start 06/14/17 at 06:00; Stop 06/14/17 at 09: 59; Status DC Multivitamins 10 ml/Folic Acid 1 mg/Famotidine 20 mg/Amino Acids/ Electrolytes/ Dextrose 2,012.2 ml @ 40 mls/hr Q24H IV-CENTRAL Last administered on 20:08; Start 06/14/17 at 20:00; Stop 06/20/17 at 19:59; Status DC Fat Emulsion Intravenous (Liposyn Iii 20% Inj) 250 ml @ 10 mls/hr Q24H IV- CENTRAL Last administered on 06/18/17 19:47; Start 06/14/17 at 20:00; Stop at 10:58; Status DC Sodium Chloride (NS Flush) See Protocol DAILY IV FLUSH Last administered on 08:00; Start 06/15/17 at 09:00 Sodium Chloride (NS Flush) See Protocol UNSCH PRN IV FLUSH SEE PROTOCOL TABLE; Start 06/14/17 at 15:45 Heparin Sodium (Porcine) (Heparin Central Flush) See Protocol DAILY IV FLUSH ; Start 06/15/17 at 09:00 Heparin Sodium (Porcine) (Heparin Central Flush) See Protocol UNSCH PRN IV FLUSH SEE PROTOCOL TABLE Last administered on 06/17/17 05:01; Start 06/14/17 at 15:45 Sodium Chloride (NS Flush) UNSCH PRN IV FLUSH SEE PROTOCOL TABLE; Start at 15:45 Artificial Tears 2 drop 2 drop Q1H PRN LEFT EYE IRRITATION Last administered on 06/14/17 18:15; Start 06/14/17 at 16:00 Sodium Chloride 1,000 ml @ 30 mls/hr Q24H IV Last administered on 06/21/17 08 :01; Start 06/15/17 at 08:45; Stop 06/21/17 at 09:31; Status DC Potassium Phosphate/Sodium Chloride (Potassium Phosphate Inj/NS 250 ml Inj) 260 ml @ 43.333 mls/ hr ONCE ONCE IV Last administered on 06/15/17 09:24; Start 06/15/17 at 11:00; Stop 06/15/17 at 16:59; Status DC Hydrocortisone Sodium Succinate 50 mg 50 mg Q12HR IV PUSH Last administered on 06/17/17 09:44; Start 06/16/17 at 21:00; Stop 06/17/17 at 10:26; Status DC Potassium Chloride (KCl 20 Meq Premix Inj) 100 ml @ 50 mls/hr Q2H IV Last administered on 06/17/17 11:47; Start 06/17/17 at 08:45; Stop 06/17/17 at 12:44 ; Status DC Potassium Chloride (KCl) 30 meq ONCE ONCE PO ; Start 06/17/17 at 08:45; Stop at 10:22; Status DC Hydrocortisone Sodium Succinate 25 mg 25 mg Q12HR IV PUSH Last administered on 06/18/17 08:56; Start 06/17/17 at 21:00; Stop 06/18/17 at 11:21; Status DC Potassium Phosphate/Sodium Chloride (Potassium Phosphate Inj/NS 250 ml Inj) 260 ml @ 43.333 mls/ hr ONCE ONCE IV Last administered on 06/17/17 14:16; Start 06/17/17 at 14:00; Stop 06/17/17 at 19:59; Status DC Morphine Sulfate (Morphine Inj) 2 mg Q3H PRN IV PUSH BREAKTHROUGH PAIN; Start 06/18/17 at 12:00 Prednisone 20 mg 20 mg DAILY PO Last administered on 06/21/17 07:59; Start at 09:00 Multivitamins 10 ml/Folic Acid 1 mg/Famotidine 20 mg/Amino Acids/ Electrolytes/ Dextrose 1,012.2 ml @ 40 mls/hr Q24H IV-CENTRAL Last administered on 20:17; Start 06/20/17 at 20:00; Stop 06/21/17 at 09:31; Status DC Multivitamins/ Folic Acid/ Famotidine/Amino Acids/ Electrolytes/ Dextrose (Mvi- 12 Inj/ Folvite Inj/ Pepcid Inj/ Clinimix E 4.25/ 25) 1,012.2 ml @ 20 mls/hr Q24H IV-CENTRAL ; Start 06/21/17 at 20:00 Levofloxacin (Levaquin) 500 mg DAILY PO ; Start 06/21/17 at 09:30 Metronidazole (Flagyl) 500 mg Q8HR PO ; Start 06/21/17 at 14:00 A/P Problem List: (1) Perforated viscus ICD Code: R19.8 Status: Acute (2) Elevated ALT measurement ICD Code: R74.0 Status: Acute (3) Anemia ICD Code: D64.9 Status: Acute (4) Leukocytosis ICD Code: D72.829 Status: Acute (5) Arthritis with psoriasis ICD Code: L40.50 Status: Acute (6) Lactic acidosis ICD Code: E87.2 Status: Acute (7) Hyperkalemia ICD Code: E87.5 Status: Acute (8) Hyponatremia ICD Code: E87.1 Status: Acute (9) History of recent steroid use ICD Code: Z92.241 Status: Acute (10) Ulcerative colitis ICD Code: K51.90 Status: Acute (11) Severe sepsis ICD Code: A41.9 Status: Acute Assessment and Plan 31-year-old male with severe complications from ulcerative colitis. Patient is status post subtotal colectomy, ileostomy. Ulcerative colitis diagnosed 05/23 History of Yersinia diarrhea Class C esophagitis Gastritis Postop day #8 exploratory laparotomy/subtotal colectomy with ileostomy/rigid sigmoidoscopy with right lower quadrant ostomy placement secondary to perforation. Dr. Menendez following Regular diet. TPN is being weaned off. Advance diet as tolerated. Pantoprazole for GI prophylaxis Ostomy cares Colorectal surgery/Dr. Menendez following Patient has been on stress dose steroid. Wean off Hydrocortisone, currently on prednisone 20 mg daily Severe sepsis secondary to colon perforation Lactic acidosis Currently not requiring vasopressors and/or antihypertensives. Ancef 1 g IV every 6 hours 4 dosages per colorectal surgery Zosyn was discontinued today. Patient was put on oral Levaquin and Flagyl. Patient stated due to side effects he will not take medication. Will DC Levaquin and Flagyl and start patient on Augmentin. Postoperative pain management Patient doing well with Byron. Continue with Byron as needed. 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 Outpatient follow-up. Prophylaxis - GI - pantoprazole - DVT - SCD/pharmacological prophylaxis with heparin subcutaneous 5000 units every 12 Discharge Planning If able to wean off TPN and patient does well on oral antibiotics can be discharged home tomorrow. Problem Qualifiers (1) Anemia: Qualified Code: D64.9 - Anemia, unspecified type (2) Leukocytosis: Qualified Code: D72.829 - Leukocytosis, unspecified type (3) Ulcerative colitis: Qualified Code: K51.919 - Ulcerative colitis with complication, unspecified location Katlyn Davenport MD Jun 21, 2017 11:12
--- NOTE | 2017-06-21 11:23 | PD.WCN.NOT ---
Wound Consult Description: Consult for NEW OSTOMY TEACHING per Dr Menendez Post op day #8 Communicated with: Patient Recommendation: Open, close, and empty effluent from pouch Change appliance as needed with assistance Additional Information: Patient seen this am on [address] for Ostomy teaching and reinforcement. Patient was finishing up eating breakfast and stated that it was a perfect time to empty pouch of effluent. Supplies for emptying obtained and given to patietn who demonstrated opening, closing, and emptying pouch independently. Patient states that he spoke with MARIA ISABEL Cuenca on mine shifter regarding ostomy education and that he really enjoyed the discussion they had. Ostomy Type: Ileostomy Surgeon: Kathy Menendez MD Date of Surgery: Jun 13, 2017 Complete: Starter kit, Education materials Educated patient on: Increasing oral intake, ambulating in the hallways, and muffling stoma if desired. Additional information Stoma is round, minimally edematous, red, budded, moist, moderately protruding, functioning, and measured 1 1/4". Appliance is intact with 225ml brown liquid noted to pouch, which was emptied by patient at this time, who states he had minimal sanguinous drainage noted to effluent last night but not since then. Patient states that he may be going home tomorrow, and if so, he will be ready. But that if he had been asked that question yesterday the answer would have been not yet. Patient states mental confidence that he can take care of his stoma and with assistance, change the appliance again before he leaves for added confidence. Haven Askew [facility] Jun 21, 2017 11:23
[2017-06-21 12:00] VITALS: BP 100/65; PULSE 108; RESP 17; TEMP 96.4; O2SAT 99
[2017-06-21] MEDS: AMOXICILLIN/CLAVULANATE K 875 MG TAB PO SCH (12:51)
[2017-06-21] MEDS ORDERED: metroNIDAZOLE 500 MG TAB PO SCH (14:00)
[2017-06-21 16:00] VITALS: BP 100/62; PULSE 102; RESP 18; TEMP 95.9; O2SAT 98
[2017-06-21 20:00] VITALS: BP 105/66; PULSE 90; RESP 17; TEMP 96.3; O2SAT 99
[2017-06-21] MEDS ORDERED: MULTIVITAMIN IV-CENTRAL SCH ×4 (20:00)
[2017-06-21] MEDS ORDERED: FOLIC ACID IV-CENTRAL SCH ×4 (20:00)
[2017-06-21] MEDS ORDERED: [UNRECOGNIZED DRUG - OTHER] IV-CENTRAL SCH ×4 (20:00)
[2017-06-21] MEDS ORDERED: FAMOTIDINE IV-CENTRAL SCH ×4 (20:00)
[2017-06-21] MEDS ORDERED: AMINO ACID IV-CENTRAL SCH ×4 (20:00)
[2017-06-22] VITALS: BP 107/56; PULSE 95; RESP 17; TEMP 97.7; O2SAT 99
[2017-06-22] MEDS: AMOXICILLIN/CLAVULANATE K 875 MG TAB PO SCH ×2 (01:45→12:36)
[2017-06-22 07:43] LABS: HEMATOCRIT 25.6 % (39.0-51.0); MEAN CELL VOLUME 91.8 FL (80.0-100.0); MEAN CORPUSCULAR HEMOGLOBIN 31.7 PG (27.0-34.0); MEAN CORPUSCULAR HGB CONC 34.6 % (32.0-36.0); PLATELET COUNT 354 TH/MM3 (150-450); RED BLOOD COUNT 2.79 MIL/MM3 (4.50-5.90); REVIEW FLAG FINAL; WHITE BLOOD COUNT 10.5 TH/MM3 (4.0-11.0)
[2017-06-22 08:00] VITALS: BP 108/65; PULSE 64; RESP 16; TEMP 96.6; O2SAT 100
[2017-06-22 08:08] LABS: POTASSIUM 3.7 MEQ/L (3.5-5.1)
--- NOTE | 2017-06-22 08:45 | HHI.PR ---
Subjective Remarks POD#9 s/p ex lap, subtotal colectomy, ileostomy comfortable Objective Vital Signs Date Time Temp Pulse Resp B/P Pulse Ox O2 Delivery O2 Flow Rate FiO2 06/22/17 00:00 97.7 95 17 107/56 99 06/21/17 20:00 96.3 90 17 105/66 99 06/21/17 16:00 95.9 102 18 100/62 98 06/21/17 12:00 96.4 108 17 100/65 99 I/O 06/21/17 06/21/17 06/21/17 06/22/17 06/22/17 06/22/17 07:00 15:00 23:00 07:00 15:00 23:00 Intake Total 1129 ml 1527 ml 240 ml 638 ml Output Total 925 ml 600 ml 2325 ml 300 ml Balance 204 ml 927 ml -2085 ml 338 ml Intake Oral 960 ml 240 ml 240 ml IV Total 545 ml 194 ml TPN/PPN 584 ml 373 ml 398 ml Output Urine Total 625 ml 375 ml 1075 ml 300 ml Stool Total 250 ml 225 ml 1250 ml Drainage Total 50 ml # Bowel Movements 2 Result Diagram: 06/22/17 0644 06/22/17 0644 Objective Remarks Abdomen soft, nondistended, tender Wound clean ileostomy + flatus/stool, thicker stool Assessment and Plan Assessment and Plan Doing well Home today Discussed tracking of ileo output, call if [phone] Kathy Menendez MD Jun 22, 2017 08:45
[2017-06-22] MEDS ORDERED: PRED10 PO (08:52)
[2017-06-22] MEDS ORDERED: HYDR-3516 PO (08:52)
[2017-06-22] MEDS: SODIUM CHLORIDE 0.9% FLUSH 10 ML FLUSH IV FLUSH SCH (08:57)
[2017-06-22] MEDS: HEPARIN SODIUM - SQ 10,000 UNITS/ML VIAL SQ SCH ×2 (08:57→20:00)
[2017-06-22] MEDS: predniSONE 20 MG TAB PO SCH (08:57)
[2017-06-22] MEDS: SODIUM CHLORIDE 0.9% FLUSH 5 ML FLUSH IVF SCH ×2 (08:57→21:00)
[2017-06-22] MEDS: PANTOPRAZOLE SODIUM 40 MG VIAL IVP SCH (08:58)
--- NOTE | 2017-06-22 10:53 | PD.WCN.NOT ---
Wound Consult Description: Consult for NEW OSTOMY TEACHING per Dr Menendez Post op day #9 Communicated with: MARIA ISABEL Mcguire Patient Patient Recommendation: Open, close, and empty effluent from pouch Change appliance as needed with assistance Additional Information: Patient seen on today for ostomy/appliance assessment. Ostomy Type: Ileostomy Surgeon: Kathy Menendez MD Date of Surgery: Jun 13, 2017 Complete: Starter kit, Education materials Educated patient on: 4 more appliances ordered for patient to go home with in 2 different sizes1 3/4 " and 2 1/4", as his stoma changes between 1-1 1/2" often. Suggested emptying pouch when 1/3-1/2 full. Additional information Patient states that he tried the marshmallow trick last night and it worked to thicken his effluent. Patient states that he should probably empty his pouch during the visit. Patient was given a graduate, paper towels, and gloves and demonstrated emptying the pouch and said how much harder it was this time due to the thickened stool. Patient states tenderness to abdomen when stoma was visualized and policy writer sales gently pressed on peristomal skin to assess adherence of the barrier. Pouch is intact without leaks. Stoma is round, edematous, red, moist, moderately protruding, lumen noted to 4-5 o'clock, and functioning with soft green thick effluent noted in pouch with brown/green liquid as well. Patient states that he is ready to go home and feels comfortable with changing the appliance and taking care of his new ostomy. is at bedside gathering supplies. Haven Askew [facility] Jun 22, 2017 10:52
[2017-06-22] MEDS ORDERED: WALKER WHEELS/F1 MIS (11:17)
[2017-06-22] MEDS ORDERED: AMOX875T2 PO (11:19)
--- NOTE | 2017-06-22 11:20 | HHI.DCPOC ---
Discharge Care Plan Diagnosis: (1) Perforated viscus (2) Ulcerative colitis (3) Physical deconditioning Goals to Promote Your Health * To prevent worsening of your condition and complications * To maintain your health at the optimal level Directions to Meet Your Goals Take your medications as prescribed Follow your dietary instruction Follow activity as directed Keep your appointments as scheduled Take your immunizations and boosters as scheduled If your symptoms worsen call your PCP, if no PCP go to Urgent Care Center or Emergency Room Smoking is Dangerous to Your Health. Avoid second hand smoke Call the 24-hour hour crisis hotline for domestic abuse at Katlyn Davenport MD Jun 22, 2017 11:20
--- NOTE | 2017-06-22 11:20 | HHI.DS ---
Discharge Summary Admission Date Jun 13, 2017 at 16:19 Discharge Date: Jun 22, 2017 Admitting Diagnosis perforated viscus, ulcerative colitis, lactic acidosis, hyponatremia (1) Ulcerative colitis ICD Code: K51.90 Diagnosis: Principal (2) Severe sepsis ICD Code: A41.9 Diagnosis: Principal (3) Perforated viscus ICD Code: R19.8 Diagnosis: Principal (4) Hyperkalemia ICD Code: E87.5 Diagnosis: Principal (5) Hyponatremia ICD Code: E87.1 Diagnosis: Principal (6) History of recent steroid use ICD Code: Z92.241 Diagnosis: Principal Procedures See hospital course. Brief History - From Admission 31-year-old male. Date of admission 06/13/2017. Past medical history includes recent diagnosis of ulcerative colitis 05/23 on chronic prednisone taper. The patient also has a history of psoriasis and was on Humira for approximate 7 years. In office since 11/23. diagnosed in [place] with Yersinia diarrhea was placed on Levaquin and Flagyl at that time. However, the patient continued having symptoms and was seen in the emergency department in May. The patient was subsequently admitted after he had a CT the abdomen and pelvis which revealed diffuse enterocolitis in 05/23. Kojo. \ Dr. Romo for EGD/ colonoscopy which will class C esophagitis, gastritis and ulcerative colitis. The patient was placed on Asacol and prednisone in the emergency department was subsequent discharged home. He is currently on a prednisone taper down to 30 mg daily recently, noted to have has increasing abdominal pain and distention with decreased oral intake. The patient states he has persistent nausea, postprandial vomiting, and singultus. The patient estimates a 25 pound weight loss from 1 month ago. The patient just went from prednisone 40 mg per day to prednisone 30 mg today. CBC/BMP: 06/22/17 0644 06/22/17 0644 Significant Findings Laboratory Tests Test 06/20/17 06/21/17 06/22/17 05:30 04:50 06:44 White Blood Count 12.7 TH/MM3 (4.0-11.0) Red Blood Count 2.88 MIL/MM3 2.82 MIL/MM3 2.79 MIL/MM3 (4.50-5.90) (4.50-5.90) (4.50-5.90) Hemoglobin 8.9 GM/DL 8.9 GM/DL 8.8 GM/DL (13.0-17.0) (13.0-17.0) (13.0-17.0) Hematocrit 26.1 % 25.6 % 25.6 % (39.0-51.0) (39.0-51.0) (39.0-51.0) Mean Platelet Volume 6.8 FL 6.8 FL 6.8 FL (7.0-11.0) (7.0-11.0) (7.0-11.0) Neutrophils (%) (Auto) 78.1 % (16.0-70.0) Neutrophils # (Auto) 9.9 TH/MM3 (1.8-7.7) Neutrophils % (Manual) 77 % (16-70) Neutrophils # (Manual) 10.5 TH/MM3 (1.8-7.7) Metamyelocytes 2 % (0-1) Myelocytes 2 % (0-0) Carbon Dioxide Level 32.6 MEQ/L 32.4 MEQ/L (21.0-32.0) (21.0-32.0) Creatinine 0.44 MG/DL 0.44 MG/DL 0.40 MG/DL (0.60-1.30) (0.60-1.30) (0.60-1.30) Calcium Level 7.5 MG/DL 7.4 MG/DL 7.6 MG/DL (8.5-10.1) (8.5-10.1) (8.5-10.1) Protein Corrected Calcium 8.4 MG/DL (8.5-10.1) Total Protein 5.3 GM/DL (6.4-8.2) Imaging Last Impressions Chest X-Ray 06/14/17 0000 Signed Impressions: Service Date/Time: Wednesday, June 14, 2017 16:49 - CONCLUSION: Satisfactory PICC line position Luis Manuel Hoyos MD Abdomen X-Ray 06/13/17 1501 Signed Impressions: Service Date/Time: Tuesday, June 13, 2017 15:06 - CONCLUSION: Pneumoperitoneum characteristic of perforated viscus. Juan Johnson MD PE at Discharge GENERAL: In no acute distress. CARDIOVASCULAR: Regular rate and rhythm without murmurs, gallops, or rubs. RESPIRATORY: Breath sounds equal bilaterally. No accessory muscle use. GASTROINTESTINAL: Abdomen soft, non-tender, nondistended. Ostomy site and place. Nontender to palpation. No peritoneal signs. Pt update on day of discharge Follow-up for perforated colon secondary to complications from ulcerative colitis Patient has no complaints. He stated he feels great. He said abdominal pain is controlled. Tolerating oral intake. He remains afebrile. Patient asking for walker. His is at the bedside during the interview. Hospital Course 31-year-old male with severe complications from ulcerative colitis. Patient is status post subtotal colectomy, ileostomy. Ulcerative colitis diagnosed 05/23 History of Yersinia diarrhea Class C esophagitis Gastritis Postop day #8 exploratory laparotomy/subtotal colectomy with ileostomy/rigid sigmoidoscopy with right lower quadrant ostomy placement secondary to perforation. Dr. Menendez following Imaging studies were obtained patient was found to have perforated bowel. Dr. Menendez, colorectal surgeon was consulted in which patient had subtotal colectomy with ostomy placement. Patient had a slow recovery and which he was put on TPN. When he started tolerating diet TPN was weaned off. Patient was treated empirically with antibiotics is present on Levaquin and Flagyl IV. Once he was stable and tolerating oral intake very well he was switched to oral antibiotics preference was Flagyl and Levaquin but per patient he has severe side effects a 1 not go on the medication. So patient was put on Augmentin in which she did well on the medication. Prior from the surgery since patient was on steroids was also given a stress dose of steroids. Prednisone was tapered and he was given prescription for prednisone. Severe sepsis secondary to colon perforation Lactic acidosis Patient was severely sepsis secondary to perforated bowel. He was treated empirically with Zosyn and switched to Ancef. He was later switched to Levaquin and Flagyl. Patient was successfully transitioned to oral antibiotics with Augmentin. During sepsis he received fluid resuscitation and supportive care with IV fluids. Patient did well. Postoperative pain management Patient was given IV pain medication but once he tolerated oral medication he did well on Narco. 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 Outpatient follow-up. Pt Condition on Discharge: Good Discharge Disposition: Discharge Home Discharge Time: > 30 minutes Discharge Instructions DIET: Follow Instructions for: Low Fiber Diet Activities you can perform: Shower/Bath Activities to Avoid: Lifting/Bending, Driving Follow up Referrals: Colorectal Surgery - 2 Weeks with Kathy Menendez MD PCP Follow-up - 1 Week New Medications: Prednisone (Prednisone) 10 Mg Tab 10 MG PO DAILY SIMON Days 10 Ref 0 TAB Walker with Front Wheels (Walker with Front Wheels) 1 Mis Mis 1 EA .ROUTE DIRECTED #1 Ref 0 EA Amoxicillin-Clavulanate (Amoxicillin-Clavulanate) 875-125 mg Tab 875 MG PO Q12H infection/perforation #8 Ref 0 TAB Hydrocodone-Acetaminophen (Hydrocodone-Acetaminophen) 5-325 mg Tab 1-2 TAB PO Q6H PRN PAIN SCALE 1 TO 10 #50 TAB Discontinued Medications: Prednisone (Prednisone) 10 Mg Tab 30 MG PO DAILY Colitis Days 7 Ref 0 TAB Prednisone (Prednisone) 20 Mg Tab 20 MG PO DAILY Colitis #7 Ref 0 TAB Katlyn Davenport MD Jun 22, 2017 11:20
[2017-06-22 12:00] VITALS: BP 107/67; PULSE 86; RESP 16; TEMP 97.8; O2SAT 99
[2017-06-22] MEDS: ACETAMINOPHEN/HYDROcodone 325 MG/5 MG TAB PO PRN (15:25)
[2017-06-22 16:00] VITALS: BP 108/71; PULSE 84; RESP 16; TEMP 96.7; O2SAT 97
[2017-06-22 20:00] VITALS: BP 107/73; PULSE 111; RESP 16; TEMP 97.8; O2SAT 99
[2017-06-23] VITALS: BP 110/55; PULSE 89; RESP 16; TEMP 97; O2SAT 98
[2017-06-23] MEDS: AMOXICILLIN/CLAVULANATE K 875 MG TAB PO SCH ×2 (00:17→12:26)
[2017-06-23 08:00] VITALS: BP 121/58; PULSE 87; RESP 16; TEMP 97.1; O2SAT 99
[2017-06-23] MEDS: HEPARIN SODIUM - SQ 10,000 UNITS/ML VIAL SQ SCH (08:00)
[2017-06-23] MEDS: SODIUM CHLORIDE 0.9% FLUSH 10 ML FLUSH IV FLUSH SCH (08:20)
[2017-06-23] MEDS: SODIUM CHLORIDE 0.9% FLUSH 5 ML FLUSH IVF SCH (08:20)
[2017-06-23] MEDS: PANTOPRAZOLE SODIUM 40 MG VIAL IVP SCH (08:20)
[2017-06-23] MEDS: predniSONE 20 MG TAB PO SCH (08:21)
--- NOTE | 2017-06-23 11:45 | PD.WCN.NOT ---
Wound Consult Description: Consult for NEW OSTOMY TEACHING per Dr Menendez Post op day #10 Communicated with: Patient and patient at bedside Recommendation: Open, close, and empty effluent from pouch Change appliance as needed with assistance Additional Information: Patient seen earlier this am for further teaching. Ostomy Type: Ileostomy Surgeon: Kathy Menendez MD Date of Surgery: Jun 13, 2017 Complete: Starter kit, Education materials Educated patient on: Discussion regarding risks for dehydration with an ileostomy. Additional information Patient states that he is ready for discharge. Reinforced information regarding drinking adequate fluids, eating proper diet, ileostomy care with peristomal skin care and emptying pouch with measuring of output. Haven Askew [facility] Jun 23, 2017 11:45
[2017-06-23 12:00] VITALS: BP 102/58; PULSE 104; RESP 16; TEMP 96.6; O2SAT 98
[2017-06-27] MEDS ORDERED: PNEU13P IM (12:10)
[2017-07-27] MEDS ORDERED: PNEU13P IM (12:14)
[2017-07-27] MEDS ORDERED: CANA10002 RECTAL (15:11)
== END 2017-06-23 13:53 | disposition home or self-care (01) | DRG 853 ==
LOC: PHED 14:39 → PHEDA 16:19 → HPAC 18:00 → N03A 22:29 → N07B 06-17 16:42
PROVIDERS: ADMIT Family Medicine; ATTEND Family Medicine
PROC: 07BC0ZX Excision of Pelvis Lymphatic, Open Approach, Diagnostic (ICD-10-PCS; 2017-06-13)
PROC: 0D1B0Z4 Bypass Ileum to Cutaneous, Open Approach (ICD-10-PCS; 2017-06-13)
PROC: 0DJD8ZZ Inspection of Lower Intestinal Tract, Via Natural or Artificial Opening Endoscopic (ICD-10-PCS; 2017-06-13)
PROC: 0DTE0ZZ Resection of Large Intestine, Open Approach (ICD-10-PCS; principal; 2017-06-13 18:32)
DX: A41.9 Sepsis, unspecified organism (principal); K63.1 Perforation of intestine (nontraumatic); E87.2 Acidosis; K51.90 Ulcerative colitis, unspecified, without complications; E87.1 Hypo-osmolality and hyponatremia; E87.5 Hyperkalemia; R65.20 Severe sepsis without septic shock; L40.50 Arthropathic psoriasis, unspecified; R63.4 Abnormal weight loss; L40.9 Psoriasis, unspecified; D64.9 Anemia, unspecified; K20.9 Esophagitis, unspecified; K29.70 Gastritis, unspecified, without bleeding; Z79.52 Long term (current) use of systemic steroids; E87.6 Hypokalemia; R05 Cough
CPT/HCPCS: 36569; 71010; 74000; 76937; 80048; 80053; 80076; 82140; 83605; 83690; 83735; 84100; 84132; 84155; 85007; 85025; 85027; 85384; 85610; 85730; 86850; 86900; 86901; 87641; 88309; 93005; 94150; 96361; 96374; 96375; C9113; J0690; J0692; J1170; J1642; J1644; J1720; J2250; J2270; J2370; J2405; J2543; J2710; J2930; J3010; J3480; J7030; J7042; J7050; J7120; J7512

== ENCOUNTER → 2017-09-26 | Outpatient (CLI) | payer OTHER ==
[~2017-09-26] MED LIST changes: -AUGM875T3 PO; +BENZ100 PO; +CANA10002 RECTAL; -LACTATED RINGER'S 1000 ML INJ 1,000 ML IV ONE; -MAPA500C PO; -MESA1TAB2 PO; -NEOSTIGMINE 3 MG/3 ML SYR IV ONE; -NORMOSOL R INJ 2,000 ML IV ONE; -ONDANSETRON HCL 4 MG/2 ML VIAL IV PUSH ONE; -PANT40TA3 PO; -PHENYLEPH/NS 1000 MCG/10 ML SYR IV ONE; -POTA-163 PO; -PRED10 PO; -PRED20 PO; -PROPOFOL 200 MG/20 ML AMP IV ONE; +ZITHTAB PO
--- NOTE | 2017-09-26 10:24 | RADRPT ---
EXAM DATE/TIME: 09/26/2017 09:49 [facility] COMPARISON: CT ABDOMEN & PELVIS W CONTRAST, May 27, 2017, 22:55. CHEST SINGLE AP, June 14, 2017, 16:49. INDICATIONS : Cough for 6 weeks and not getting better. MEDICAL HISTORY : Ulcerative colitis. SURGICAL HISTORY : Colostomy. Cholecystectomy. ENCOUNTER: Initial ACUITY: 2 months PAIN SCORE: 6/10 LOCATION: Bilateral upper chest FINDINGS: PA and lateral views of the chest demonstrate a normal-sized cardiac silhouette. There is no effusion , consolidation, or pneumothorax. The bones and soft tissues demonstrate no acute abnormality. CONCLUSION: Normal chest x-ray. Luis Manuel Kurtz MD on September 26, 2017 at 10:21 Board Certified Radiologist. This report was verified electronically.
== END ==
LOC: HRAD 09:36
PROVIDERS: ATTEND Family Medicine
DX: R05 Cough (principal)
CPT/HCPCS: 71020

== ENCOUNTER → 2017-11-21 | Outpatient (CLI) | payer OTHER | LOC: PHRSP 09:35 | DX: R05 Cough (principal) | CPT/HCPCS: 94060; 94726; 94729 ==

== ENCOUNTER → 2018-02-15 | Outpatient (CLI) | payer OTHER ==
[~2018-02-15] MED LIST changes: -BENZ100 PO; +CLAR10CA3 PO; -ZITHTAB PO
--- NOTE | 2018-02-15 16:47 | RADRPT ---
EXAM DATE/TIME: 02/15/2018 16:01 [facility] COMPARISON: CHEST PA & LAT, September 26, 2017, 9:49. INDICATIONS : Patient has cough for 7 months post op ileostomy. MEDICAL HISTORY : Ulcerative colitis. SURGICAL HISTORY : Cholecystectomy. Colon resection. ENCOUNTER: Initial ACUITY: 7 - 11 months PAIN SCORE: 2/10 LOCATION: Bilateral upper chest FINDINGS: PA and lateral views of the chest demonstrate the lungs to be symmetrically aerated without evidence of mass, infiltrate or effusion. The cardiomediastinal contours are unremarkable. Osseous structure s are intact. CONCLUSION: No acute disease. Avni Chase MD FACR on February 15, 2018 at 16:44 Board Certified Radiologist. This report was verified electronically.
== END ==
LOC: HRAD 15:41
PROVIDERS: ATTEND Specialist
DX: J40 Bronchitis, not specified as acute or chronic (principal)
CPT/HCPCS: 71046

== ENCOUNTER 2018-04-03 16:03 | Emergency (ER) | payer OTHER ==
[~2018-04-03] VITALS: Ht 180.3 cm; Wt 61.0 kg
[2018-04-03 16:10] VITALS: BP 112/71; PULSE 99; RESP 16; TEMP 98.4; O2SAT 98
--- NOTE | 2018-04-03 16:23 | PD ---
HPI Chief Complaint: Fever Time Seen by Provider: 16:19 Travel History International Travel<30 days: No Contact w/Intl Traveler<30days: No Traveled to known affect area: No History of Present Illness HPI 32-year-old male came to the emergency room with history of fever and some sore throat that started this morning. Patient said he had a recorded temperature 101.5 followed by 102.5 at around 3 PM. He took some Tylenol and then came here. Patient was afebrile in triage. He says he has been having some sore throat for past 2 days. Initially it was the left side of his throat hurting and today it is the right side. No history of runny nose. He has had a cough for 6 months and the cough is no different now. He has had thorough workup for this cough including pulmonary test and CAT scan and so far they have not been able to find anything. Patient has history of ulcerative colitis and had a ileostomy done about 6 months ago. He has a surgery coming up this week for ileostomy reversal in [place]. He just wanted to come here and make sure everything was okay so that he could proceed to have the surgery. He does not appear to be in any significant distress. [facility] Past Medical History Narrative Medical List of his past medical, surgical, social and family history is reviewed from the nursing note. Arthritis: Yes (psoriatic arthritis) Cancer: No Cardiovascular Problems: No Endocrine: No Gastrointestinal Disorders: Yes (on admit) Genitourinary: Yes (retention on admit) Hiatal Hernia: Yes (maybe) Immune Disorder: No Musculoskeletal: Yes Neurologic: No Psychiatric: No Reproductive: No Respiratory: No Integumentary: Yes (scriasis) Past Surgical History Abdominal Surgery: No Cardiac Surgery: No Ear Surgery: No Endocrine Surgery: No Eye Surgery: No Genitourinary Surgery: No Gynecologic Surgery: Yes Oral Surgery: No Thoracic Surgery: No Social History Alcohol Use: Yes (rarely) Tobacco Use: No Substance Use: No Allergies-Medications (Allergen,Severity, Reaction): Coded Allergies: levofloxacin (Unverified Adverse Reaction, Severe, Blurred Vision, ) acetaminophen (Unverified Adverse Reaction, Mild, rash, 10/17/17) oxycodone (Unverified Adverse Reaction, Mild, rash, 10/17/17) Uncoded Allergies: Flagyl oral (Adverse Reaction, Severe, Blurred Vision, 05/31/17) Visual disturbances and retention of urine. Comments List of his allergies reviewed from the nursing note. Reported Meds & Prescriptions Reported Meds & Active Scripts Active Claritin (Loratadine) 10 Mg Cap 10 Mg PO DAILY Canasa Supp (Mesalamine) 1,000 Mg Supp 1,000 Mg RECTAL HS Narrative Medication List of his home medications reviewed from the nursing note. Review of Systems Except as stated in HPI: all other systems reviewed are Neg General / Constitutional: Positive: Fever HENT: Positive: Sore Throat Physical Exam Narrative GENERAL: Awake, alert, no obvious distress SKIN: Focused skin assessment warm/dry. HEAD: Atraumatic. Normocephalic. EYES: Pupils equal and round. No scleral icterus. No injection or drainage. ENT: No nasal bleeding or discharge. Mucous membranes pink and moist. Pharynx is erythematous right worse than left but no exudate. No lymphadenopathy NECK: Trachea midline. No JVD. CARDIOVASCULAR: Regular rate and rhythm. No murmur appreciated. RESPIRATORY: No accessory muscle use. Clear to auscultation. Breath sounds equal bilaterally. GASTROINTESTINAL: Abdomen soft, non-tender, nondistended. Hepatic and splenic margins not palpable. MUSCULOSKELETAL: No obvious deformities. No clubbing. No cyanosis. No edema. NEUROLOGICAL: Awake and alert. No obvious cranial nerve deficits. Motor grossly within normal limits. Normal speech. PSYCHIATRIC: Appropriate mood and affect; insight and judgment normal. Data Data Last Documented VS Vital Signs Date Time Temp Pulse Resp B/P (MAP) Pulse Ox O2 Delivery O2 Flow Rate FiO2 04/03/18 18:05 04/03/18 17:47 88 18 99 Room Air 04/03/18 16:10 98.4 Orders Orders Complete Blood Count With Diff (04/03/18 16:29) Basic Metabolic Panel (Bmp) (04/03/18 16:29) Influenzae A/B Antigen (04/03/18 16:29) Group A Rapid Strep Screen (04/03/18 16:29) Strep Culture (Group A) (04/03/18 16:40) Ed Discharge Order (04/03/18 17:45) Labs Laboratory Tests Test 04/03/18 16:40 White Blood Count 10.2 TH/MM3 Red Blood Count 4.99 MIL/MM3 Hemoglobin 14.9 GM/DL Hematocrit 44.2 % Mean Corpuscular Volume 88.6 FL Mean Corpuscular Hemoglobin 29.8 PG Mean Corpuscular Hemoglobin Concent 33.6 % Red Cell Distribution Width 13.5 % Platelet Count 322 TH/MM3 Mean Platelet Volume 7.5 FL Neutrophils (%) (Auto) 74.6 % Lymphocytes (%) (Auto) 12.9 % Monocytes (%) (Auto) 11.6 % Eosinophils (%) (Auto) 0.2 % Basophils (%) (Auto) 0.7 % Neutrophils # (Auto) 7.6 TH/MM3 Lymphocytes # (Auto) 1.3 TH/MM3 Monocytes # (Auto) 1.2 TH/MM3 Eosinophils # (Auto) 0.0 TH/MM3 Basophils # (Auto) 0.1 TH/MM3 CBC Comment DIFF FINAL Differential Comment Blood Urea Nitrogen 10 MG/DL Creatinine 0.99 MG/DL Random Glucose 83 MG/DL Calcium Level 8.8 MG/DL Sodium Level 136 MEQ/L Potassium Level 3.6 MEQ/L Chloride Level 101 MEQ/L Carbon Dioxide Level 28.9 MEQ/L Anion Gap 6 MEQ/L Estimat Glomerular Filtration Rate 88 ML/MIN MDM Medical Decision Making Medical Screen Exam Complete: Yes Emergency Medical Condition: Yes Medical Record Reviewed: Yes Differential Diagnosis Strep pharyngitis, influenza, viral illness Narrative Course 5:52 PM blood test results and rapid influenza and strep are negative. I am comfortable discharging him home at this point. I have given him verbal as well as dictated instructions. Patient has expressed his understanding and he is comfortable going home. Procedures EKG Prior to Arrival: No Diagnosis Primary Impression: Viral illness Referrals: Primary Care Physician Additional Instructions: You can take Tylenol [id number] if the fever returns. Drink lots of fluid to keep yourself hydrated. Return to the ER if condition worsens or any other new concerns. Med/Other Pt SpecificInfo: No Change to Meds Disposition: 01 DISCHARGE HOME Condition: Stable Sunny Gastelum MD April 03, 2018 16:23
[2018-04-03 16:58] LABS: AUTOMATED NEUTROPHIL # 7.6 TH/MM3 (1.8-7.7); BASOPHIL # 0.1 TH/MM3 (0-0.2); BASOPHIL % 0.7 % (0.0-2.0); EOSINOPHIL % 0.2 % (0.0-4.0); HEMATOCRIT 44.2 % (39.0-51.0); HEMOGLOBIN 14.9 GM/DL (13.0-17.0); LYMPH % 12.9 % (9.0-44.0); LYMPHOCYTE # 1.3 TH/MM3 (1.0-4.8); MEAN CELL VOLUME 88.6 FL (80.0-100.0); MEAN CORPUSCULAR HEMOGLOBIN 29.8 PG (27.0-34.0); MEAN CORPUSCULAR HGB CONC 33.6 % (32.0-36.0); MEAN PLATELET VOLUME 7.5 FL (7.0-11.0); MONO % 11.6 % (0.0-8.0); MONOCYTE # 1.2 TH/MM3 (0-0.9); NEUT % 74.6 % (16.0-70.0); PLATELET COUNT 322 TH/MM3 (150-450); RED BLOOD COUNT 4.99 MIL/MM3 (4.50-5.90); RED CELL DISTRIBUTION WIDTH 13.5 % (11.6-17.2); WHITE BLOOD COUNT 10.2 TH/MM3 (4.0-11.0)
[2018-04-03 17:11] LABS: BICARBONATE 28.9 MEQ/L (21.0-32.0); CALCIUM 8.8 MG/DL (8.5-10.1)
[2018-04-03 17:15] LABS: CREATININE 0.99 MG/DL (0.60-1.30)
[2018-04-03 17:47] VITALS: BP 106/68; PULSE 88; RESP 18; O2SAT 99
== END 2018-04-03 18:06 | disposition home or self-care (01) ==
LOC: PHED 16:03
DX: B34.9 Viral infection, unspecified (principal); K51.90 Ulcerative colitis, unspecified, without complications; Z93.2 Ileostomy status; L40.50 Arthropathic psoriasis, unspecified
CPT/HCPCS: 80048; 85025; 87081; 87804; 87880; 99283